=== PATIENT | female | born 1980 | race Caucasian/White ===

== ENCOUNTER → 2016-06-04 | Outpatient (CLI) | payer OTHER ==
[~2016-06-04] MED LIST: ALMO1TAB PO; BCPILLS PO; CITA40TA12 PO; LEVO75TA PO
[2016-06-07 02:49] LABS: CHLAMYDIA TRACH RNA*** NOT DETECTED (NOT DETECTED); GC (NEIS GONORRHOEAE)RNA** NOT DETECTED (NOT DETECTED)
== END | disposition home or self-care (01) ==
LOC: C.LABSPEC 17:46
PROVIDERS: ATTEND Obstetrics & Gynecology
DX: L70.9 Acne, unspecified (principal); Z30.430 Encounter for insertion of intrauterine contraceptive device

== ENCOUNTER → 2016-06-04 | Outpatient (CLI) | payer OTHER ==
[2016-06-04 15:51] LABS: ALT/SGPT 27 U/L (12-78); BLOOD UREA NITROGEN 17 mg/dl (7-18); CARBON DIOXIDE 28 mmol/L (21-32); CHLORIDE 104 mmol/L (98-107); GLUCOSE 84 mg/dl (70-99); POTASSIUM 3.2 mmol/L (3.5-5.1); SODIUM 140 mmol/L (136-145)
[2016-06-04 15:52] LABS: ALB/GLOB RATIO 1.1 (0.9-2); ALKALINE PHOSPHATASE 92 U/L (45-117); AST/SGOT 18 U/L (15-37)
== END | disposition home or self-care (01) ==
LOC: C.LAB1850 13:51
PROVIDERS: ATTEND Obstetrics & Gynecology
DX: L70.9 Acne, unspecified (principal)

== ENCOUNTER → 2016-08-28 | Outpatient (CLI) | payer OTHER ==
[2016-08-28 09:55] LABS: CALCIUM 9.2 mg/dl (8.5-10.1)
[2016-08-28 09:58] LABS: ALT/SGPT 25 U/L (12-78); BLOOD UREA NITROGEN 21 mg/dl (7-18); BUN/CREATININE RATIO 20.5 (10-20); CARBON DIOXIDE 27 mmol/L (21-32); CHLORIDE 101 mmol/L (98-107); GLUCOSE 105 mg/dl (70-99); POTASSIUM 3.5 mmol/L (3.5-5.1); SODIUM 138 mmol/L (136-145)
[2016-08-28 10:01] LABS: ALKALINE PHOSPHATASE 89 U/L (45-117); AST/SGOT 16 U/L (15-37)
== END | disposition home or self-care (01) ==
LOC: C.LAB1850 08:21
PROVIDERS: ATTEND Obstetrics & Gynecology
DX: L70.9 Acne, unspecified (principal)

== ENCOUNTER → 2017-03-08 | Outpatient (CLI) | payer OTHER ==
[2017-03-08 16:17] LABS: ALT/SGPT 27 U/L (12-78); AST/SGOT 17 U/L (15-37); BLOOD UREA NITROGEN 21 mg/dl (7-18); BUN/CREATININE RATIO 24.6 (10-20); CALCIUM 9.3 mg/dl (8.5-10.1); CARBON DIOXIDE 30 mmol/L (21-32); CHLORIDE 100 mmol/L (98-107); CREATININE 0.84 mg/dl (0.60-1.20); GLUCOSE 105 mg/dl (70-99); POTASSIUM 3.5 mmol/L (3.5-5.1); SODIUM 135 mmol/L (136-145)
[2017-03-08 16:20] LABS: ALKALINE PHOSPHATASE 102 U/L (45-117)
== END | disposition home or self-care (01) ==
LOC: C.LAB1850 15:02
PROVIDERS: ATTEND Obstetrics & Gynecology
DX: L70.9 Acne, unspecified (principal)

== ENCOUNTER 2017-05-08 21:24 | Emergency (ER) | payer OTHER ==
[~2017-05-08] VITALS: Ht 152.4 cm; Wt 64.5 kg
[2017-05-08 21:29] VITALS: BP 141/89; PULSE 91; TEMP 36.8; O2SAT 96; Ht 152.4 cm; Wt 64.5 kg
[2017-05-08] MEDS ORDERED: LEVO112T2 PO (21:43)
--- NOTE | 2017-05-09 17:16 | EMERGENCY ROOM VISIT NOTE ---
ED Visit Note First contact with patient: 21:33 Chief Complaint: Dog bite. History of Present Illness: Ms. Crow is a 36-year-old white female who ambulates into the ED accompanied by a male friend complaining of a dog bite to the right hand. 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 She had just fed a [place]. She then turned to talk to another volunteer and the dog bit her on the right hand. This occurred approximately one hour prior to arrival at the hospital. She notes an open puncture wound to the anterior aspect of the right wrist and a few superficial abrasions to the posterior right hand. In the area of her single puncture wound and superficial abrasion she reports she has a throbbing sensation. Rates this discomfort 6/10. The pain is nonradiating. The pain worsens with palpation. She has not identified any alleviating factors related to the discomfort. She has not taken medication for discomfort prior to arrival at the hospital. She denies any associated symptoms including hand weakness/numbness/tingling. She does report the dog involve is up-to-date on his rabies immunization. She also reports prior to coming to the hospital she did wash her wound. Review of Systems: As noted above in history of present illness. Past Medical History: Hypothyroidism, Status post shoulder surgery. Current Medications: Citalopram, Axert, and throat. Allergies to Medications: Penicillin, Zithromax, odyt-[id number]-[id number] cold medicines. Social History: Patient is currently employed; she feels safe in her home environment; she denies tobacco use and admits to alcohol use. Tetanus Immunization Status: Patient reports up-to-date. Physical Examination: Vital Signs: Date Time Temp Pulse Resp B/P (MAP) Pulse Ox O2 Delivery O2 Flow Rate FiO2 05/08/17 21:29 36.8 91 18 141/89 96 Room Air GENERAL: 36-year-old female in mild distress due to pain, nontoxic-appearing, afebrile and hemodynamically stable. NEUROLOGICAL: Awake, alert and oriented to person, place and time. Answering questions appropriately and following commands. Normal gait. Good hand eye coordination. No focal motor or sensory deficits. SKIN: Warm, dry and pink. Right Hand/Wrist: Patient has a single puncture wound to the anterior aspect of the wrist measuring 3-4 mm with no active bleeding. Neuro also multiple superficial abrasions over the posterior hand with no active bleeding. RIGHT WRIST/HAND: No gross bony deformity. Soft tissue injuries as noted above. [id number] tenderness over her wounds. Mild tenderness over the second, third and fourth metacarpals without bony deformity or crepitus. There was mild swelling over the posterior hand. She had full range of motion of the wrist and all the fingers against resistance. Throughout the fingers the skin was warm and pink and capillary refill is brisk. She is able to distinguish light sensations through through all dermatomes. ED Course: Patient is assessed as noted above. Patient's medication list was reviewed. Patient was offered pain medication and refused. Patient's wounds were cleansed with antibacterial soap and water and dressed with bacitracin dressing. I did have a discussion with the patient about possibly closing her puncture wound that was full-thickness. We discussed increased risk of infections and antibiotic therapy. She elected not to have this wound closed but would watch it for signs of infection. Patient was educated about today's findings and instructed on her treatment plan ; she verbalized understanding and agreement with this plan per Clinical Impression: Dog bite right hand. Disposition: Patient discharged home in stable condition; prior to departure she was reassessed and subjectively reported she was feeling the same. Plan: Comfort measures, wound care and signs of infection were discussed with the patient. Patient was encouraged to return to the emergency department for any signs of infection, worsening pain or any new/concerning symptoms.
== END 2017-05-08 22:04 | disposition home or self-care (01) ==
LOC: C.EDB 21:25 → C.EDD 22:04
DX: S61.451A Open bite of right hand, initial encounter (principal); W54.0XXA Bitten by dog, initial encounter; E03.9 Hypothyroidism, unspecified; Z98.890 Other specified postprocedural states; Z79.899 Other long term (current) drug therapy; Z88.0 Allergy status to penicillin; Z88.8 Allergy status to other drugs, medicaments and biological substances

== ENCOUNTER → 2017-05-21 | Outpatient (CLI) | payer OTHER ==
[~2017-05-21] MED LIST changes: -BCPILLS PO; +LEVO112T2 PO; -LEVO75TA PO
[2017-05-21 15:48] LABS: BASO % 0.4 %; BASO ABS # 0.04 K/uL (0-0.2); EOS % 5.6 %; EOS ABS # 0.52 K/uL (0-0.5); HEMATOCRIT 37.2 % (37-47); HEMOGLOBIN 12.7 g/dL (12.0-16.0); IG# 0.01 K/uL (0.00-0.02); LYMPH % 38.2 %; LYMPH ABS # 3.54 K/uL (1.2-3.4); MEAN CELL VOLUME 90.1 fL (80-100); MEAN CORPUSCULAR HEMOGLOBIN 30.8 pg (25-34); MEAN CORPUSCULAR HGB CONC 34.1 g/dl (32-36); MONO % 9.7 %; NEUT ABS # 4.25 K/uL (1.4-6.5); PLATELET COUNT 276 K/uL (130-400); RED CELL DISTRIBUTION WIDTH CV 13.6 % (11.5-14.5); RED CELL DISTRIBUTION WIDTH SD 44.7 fL (36.4-46.3); WHITE BLOOD COUNT 9.26 K/uL (4.8-10.8)
[2017-05-21 16:13] LABS: BLOOD UREA NITROGEN 18 mg/dl (7-18); CALCIUM 9.5 mg/dl (8.5-10.1); CARBON DIOXIDE 26 mmol/L (21-32); CREATININE 0.75 mg/dl (0.60-1.20); GLUCOSE 97 mg/dl (70-99); POTASSIUM 3.6 mmol/L (3.5-5.1); SODIUM 137 mmol/L (136-145)
== END | disposition home or self-care (01) ==
LOC: C.LAB1850 14:49
DX: K62.5 Hemorrhage of anus and rectum (principal); Z87.19 Personal history of other diseases of the digestive system; R10.84 Generalized abdominal pain; R14.0 Abdominal distension (gaseous); Z78.9 Other specified health status

== ENCOUNTER → 2017-08-30 | Outpatient (CLI) | payer OTHER | END | disposition home or self-care (01) | LOC: C.LAB1850 17:18 | PROVIDERS: ATTEND Internal Medicine Endocrinology, Diabetes & Metabolism | DX: E03.9 Hypothyroidism, unspecified (principal); E06.3 Autoimmune thyroiditis ==

== ENCOUNTER 2018-05-24 09:47 | Inpatient (IN) ==
[2018-05-24] MEDS ORDERED: ACETAMINOPHEN 1000 MG/100 ML IV IV STA (10:05)
[2018-05-24] MEDS ORDERED: SODIUM CHLORIDE 0.9% 1000ML 1,000 ML IV SCH (10:15)
[2018-05-24 10:31] LABS: Hematocrit (blood only) 35.4 % (37-47); Hemoglobin 11.6 g/dL (12.0-16.0); Mean Corpuscular Hgb Conc 32.8 g/dL (32-36); Mean Corpuscular Volume 91.5 fL (80-100); Mean Platelet Volume 9.7 fL (7.4-10.4); Platelet Count 304 K/uL (130-400); RDW Coefficient of Variation 14.9 % (11.5-14.5); RDW Standard Deviation 50.1 fL (36.4-46.3); Red Blood Count 3.87 M/uL (4.2-5.4); White Blood Count 16.28 K/uL (4.8-10.8)
[2018-05-24 10:48] LABS: Albumin Level 2.8 gm/dl (3.4-5.0); BUN Creatinine Ratio 11.9 (10-20); Calcium 9.1 mg/dl (8.5-10.1); Creatinine Clr Calc Pharmacy 94.3 ml/min; Est GFR (Non-African American) 111.3; Magnesium 2.4 mg/dl (1.8-2.4); Potassium 3.1 mmol/L (3.5-5.1)
--- NOTE | 2018-05-24 10:49 | Emergency Department Note ---
Entered by Judy Crews acting as a scribe for Esa Contreras MD History of Present Illness General Chief complaint: GI Assessment Stated complaint: ACUTE ULCERTIVE COLITUS FLAIR UP,HEAVY BLEEDING Time Seen by Provider: 05/24/18 09:57 Source: patient History of Present Illness Provider complaint: abdominal pain Onset (ago): day(s) 8 Location: abdomen Pain Consistency: + other (worsened) Maximum Pain Intensity: 7 Quality: + other (cramping) Associated symptoms: no nausea/vomiting (denies vomiting) The patient is a 38 year old female who presents to the Emergency Room with complaints of abdominal pain over the last 8 days. She states that she was treated here last night and discharged this morning so she could see her GI doctor. The patient states that Dr. Chery referred her here for admission. She states that she is at the end of a month-long tapered Prednisone. She states she has had abdominal cramping and loose stools which she states worsened this week. The patient reports that her bowel movements have been fluid and blood. She denies having vomiting. She states that she was diagnosed with ulcerative colitis 1 year ago but reports that this is the worse it has been. Review of notes show that the patient was sent in by GI and has a history of ulcerative colitis. The patient was seen yesterday in the ED. There is concern for C. Diff. Home Medications Home Medications Medication Instructions Recorded Confirmed Type duloxetine 30 mg capsule,delayed 30 mg PO DAILY 02/03/18 05/24/18 History release ibuprofen 800 mg tablet 800 mg PO .Q4-6 PRN tab 02/03/18 05/24/18 History thyroid (pork) 90 mg tablet 90 mg PO DAILY 02/03/18 05/24/18 History almotriptan malate 12.5 mg PO UD PRN 05/23/18 05/24/18 History mesalamine 2,400 mg PO DAILY 05/23/18 05/24/18 History mesalamine with cleansing wipe 4 g OR HS 05/23/18 05/24/18 History Allergies Allergy/AdvReac Type Severity Reaction Status Date / Time Penicillins Allergy Unknown rash Verified 05/24/18 10:36 azithromycin [From Zithromax] Allergy Hives Verified 05/24/18 10:36 OTC COUGH MEDICINES Allergy Unknown hives Uncoded 05/24/18 10:36 Past Med/Surg History Medical History Sacroiliitis Anxiety (Chronic) Hypothyroid (Chronic) Migraines (Chronic) Ulcerative colitis (Chronic) H/O lipoma Surgical History H/O rotator cuff surgery bilateral Family History Mother Hypothyroid Paget disease of bone Father Hypothyroid HTN (hypertension) Aunt Ulcerative colitis Brother Crohns disease Sister Graves disease Social History marital status: marital status details: no kids; currently in relationship Current Living Situation: Significant Other current occupational status: employed 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 and A total of 10 systems reviewed and were otherwise negative Physical Exam Vital Signs Vital Signs - 24 hr 05/24/18 09:49 05/24/18 10:28 05/24/18 11:22 Temperature 37.0 C Temperature Source Oral Sepsis Recent Fever Within 48 Hours No Sepsis New/Unexplained Change in Mental Status No Sepsis Action Taken by Nursing No Action Required Pulse Rate 94 H Pulse Rate [Right Finger] 94 H 80 Pulse Rhythm [Right Finger] Regular Regular Pulse Strength [Right Finger] Normal Normal Respiratory Rate 18 16 16 Respiratory Effort / Characteristics Non-Labored Spontaneous Non-Labored Non-Labored Respiratory Depth Normal Normal Respiratory Pattern Regular Regular Blood Pressure 138/91 Blood Pressure [Left Arm] 130/85 133/88 Blood Pressure [Right Arm] Blood Pressure Mean 106 Blood Pressure Mean [Left Arm] 100 103 Blood Pressure Mean [Right Arm] Blood Pressure Position Sitting Blood Pressure Position [Left Arm] Sitting Lying Blood Pressure Position [Right Arm] Pulse Oximetry 98 98 100 Oxygen Delivery Method Room Air Room Air Room Air 05/24/18 11:39 05/24/18 13:05 05/24/18 14:05 Temperature 36.7 C Temperature Source Oral Sepsis Recent Fever Within 48 Hours Sepsis New/Unexplained Change in Mental Status Sepsis Action Taken by Nursing Pulse Rate Pulse Rate [Right Finger] 96 H 94 H Pulse Rhythm [Right Finger] Regular Pulse Strength [Right Finger] Normal Respiratory Rate 16 18 Respiratory Effort / Characteristics Non-Labored Spontaneous Non-Labored Non-Labored Spontaneous Respiratory Depth Normal Normal Normal Respiratory Pattern Regular Regular Blood Pressure Blood Pressure [Left Arm] 128/76 Blood Pressure [Right Arm] 144/92 H Blood Pressure Mean Blood Pressure Mean [Left Arm] 93 Blood Pressure Mean [Right Arm] 109 Blood Pressure Position Blood Pressure Position [Left Arm] Lying Blood Pressure Position [Right Arm] Sitting Pulse Oximetry 98 97 Oxygen Delivery Method Room Air Room Air Room Air 05/24/18 15:29 Temperature 37.1 C Temperature Source Oral Sepsis Recent Fever Within 48 Hours Sepsis New/Unexplained Change in Mental Status Sepsis Action Taken by Nursing Pulse Rate Pulse Rate [Right Finger] 95 H Pulse Rhythm [Right Finger] Pulse Strength [Right Finger] Respiratory Rate 16 Respiratory Effort / Characteristics Respiratory Depth Respiratory Pattern Blood Pressure Blood Pressure [Left Arm] Blood Pressure [Right Arm] 125/81 Blood Pressure Mean Blood Pressure Mean [Left Arm] Blood Pressure Mean [Right Arm] 95 Blood Pressure Position Blood Pressure Position [Left Arm] Blood Pressure Position [Right Arm] Lying Pulse Oximetry 99 Oxygen Delivery Method Room Air GENERAL: Patient is in no acute distress. HEENT: No acute trauma, normocephalic atraumatic, mucous membranes moist, no nasal congestion, no scleral icterus. NECK: No stridor, no adenopathy, no meningismus, trachea is midline. LUNGS: Clear to auscultation bilaterally, no wheeze, no rhonchi, breath sounds equal. HEART: Mildly tachycardic, regular rhythm, no murmurs. ABDOMEN: Soft, diffusely mildly tender, bowel sounds positive but scant, no hernias, no peritonitis. EXTREMITIES: No cyanosis or edema, full range of motion of all the joints without pain or difficulty, no signs for acute trauma. NEUROLOGIC: Oriented x 3, no acute motor or sensory deficits, no focal weakness. SKIN: No rash, no jaundice, no diaphoresis. Course 1000: Past medical records reviewed. The patient was evaluated in room B6, and a complete history and physical examination were performed. 1011: I discussed the patient's case with Dr. Bravo who said that the patient would go to the unassigned group. 1129: I discussed the patient's case with Dr. Heath Neves who will evaluate the patient for further management. 1136: I updated the patient who verbalized agreement and understanding of the treatment plan. Consultations Consultation #1: Dr. Bravo Time: 10:11 Consultation #2: Dr. Heath Neves Time: 11:29 Administered Medications Methylprednisolone 20 mg/ (Syringe) 0.32 mls @ 1.5 mls/min IV Q8 MARILU Stop: 06/23/18 14:59 Last Admin: 05/24/18 15:57 Dose: 1.5 mls/min Potassium Chloride (Klor-Con M20) 20 meq PO TID MARILU Stop: 05/25/18 09:01 Last Admin: 05/24/18 15:58 Dose: 20 meq Raspberry (Raspberry) 5 ml PO Q6 MARILU Stop: 06/07/18 17:59 Last Admin: 05/24/18 13:26 Dose: 5 ml Vancomycin HCl (Vancomycin Hcl) 125 mg PO Q6 MARILU Stop: 06/03/18 12:44 Last Admin: 05/24/18 13:25 Dose: 125 mg Discontinued Medications Acetaminophen (Ofirmev) 1,000 mg IV NOW STA Stop: 05/24/18 10:06 Last Admin: 05/24/18 10:22 Dose: 1,000 mg Sodium Chloride (Nss 1000ml) 1,000 mls @ 999 mls/hr IV .Q1H1M MARILU Stop: 05/24/18 11:15 Last Infusion: 05/24/18 11:20 Dose: 0 mls/hr Admin: 05/24/18 10:24 Dose: 999 mls/hr Ioversol (Optiray 320 100ml) 94 ml IV ONCE PRN PRN Reason: Interaction Checking Stop: 05/28/18 12:53 Last Admin: 05/24/18 12:54 Dose: 94 ml Medical Decision Making Differential Diagnosis The patient is a 38 year old female who presents to the ED with abdominal pain. Differential diagnosis includes dehydration, electrolyte imbalance, anemia, colitis, bacterial intestinal infection, C Diff infection, toxic megacolon, ulcerative colitis flair, and failed outpatient treatment. Medical Records Attestation: I reviewed the patient's medical records. Home Medications Current Medication List: was personally reviewed by me Laboratory Data Attestation: I reviewed the patient's lab results. Result diagrams: 05/24/18 10:20 05/24/18 10:20 Lab Results 05/24/18 05/24/18 05/24/18 Range/Units 10:20 10:20 10:40 WBC 16.28 H (4.8-10.8) K/uL RBC 3.87 L (4.2-5.4) M/uL Hgb 11.6 L (12.0-16.0) g/dL Hct 35.4 L (37-47) % MCV 91.5 (80-100) fL MCH 30.0 (25-34) pg MCHC 32.8 (32-36) g/dL RDW Std Deviation 50.1 H (36.4-46.3) fL RDW Coeff of Elayne 14.9 H (11.5-14.5) % Plt Count 304 (130-400) K/uL MPV 9.7 (7.4-10.4) fL Immature Gran % (Auto) 0.6 % Neut % (Auto) 70.0 % Lymph % (Auto) 9.5 % [place] % (Auto) 19.6 % Eos % (Auto) 0.2 % Baso % (Auto) 0.1 % Immature Gran # (Auto) 0.10 H (0.00-0.02) K/uL Neut # (Auto) 11.40 H (1.4-6.5) K/uL Lymph # (Auto) 1.54 (1.2-3.4) K/uL [place] # (Auto) 3.19 H (0.11-0.59) K/uL Eos # (Auto) 0.03 (0-0.5) K/uL Baso # (Auto) 0.02 (0-0.2) K/uL Toxic Granulation 1+ Dohle Bodies 1+ Sodium 137 (136-145) mmol/L Potassium 3.1 L (3.5-5.1) mmol/L Chloride 102 (98-107) mmol/L Carbon Dioxide 28 (21-32) mmol/L Anion Gap 7.0 (3-11) BUN 8 (7-18) mg/dl Creatinine 0.66 (0.6-1.2) mg/dl Est Cr Clr Drug Dosing 94.3 ml/min Est GFR ( Amer) 129.0 Est GFR (Non-Af Amer) 111.3 BUN/Creatinine Ratio 11.9 (10-20) Glucose 112 H (70-99) mg/dl Calcium 9.1 (8.5-10.1) mg/dl Magnesium 2.4 (1.8-2.4) mg/dl Total Bilirubin 0.5 (0.2-1) mg/dl AST 6 L (15-37) U/L ALT 17 (12-78) U/L Alkaline Phosphatase 76 (45-117) U/L Total Protein 7.2 (6.4-8.2) gm/dl Albumin 2.8 L (3.4-5.0) gm/dl Globulin 4.4 H (2.5-4.0) gm/dl Albumin/Globulin Ratio 0.6 L (0.9-2) Lipase 36 L (73-393) U/L Stl C. diff Tox B Gene Pos C.diff Toxin B A* (Neg) Imaging Data Radiologist's Impression: Radiology results as stated below per my review and the radiologist's interpretation: CT abd pelvis oral and IV con CLINICAL HISTORY: Ulcerative colitis, severe abdominal pain, bleeding, evaluate for toxic megacolon. COMPARISON STUDY: Supine abdomen dated 05/23/2018 TECHNIQUE: The patient was scanned following administration of dilute oral contrast, and in a dynamic helical fashion during intravenous administration of 94 cc of Optiray 320. A dose lowering technique was utilized adhering to the principles of ALARA. CT DOSE: 527.93 mGycm FINDINGS: Lower chest: There are minimal dependent atelectatic changes. Liver: The contrast-enhanced liver is normal in size, contour, and attenuation. There is no intrahepatic biliary ductal dilatation. The hepatic veins and portal veins are patent. Gallbladder: Unremarkable. Spleen: Normal in size and attenuation. Pancreas: Unremarkable. Adrenal glands: Unremarkable. Kidneys: There is symmetric renal cortical enhancement. The kidneys are normal in size without hydronephrosis. Bowel: There are no transition zones indicate bowel obstruction. There is no evidence of acute diverticulitis. There is osei colonic wall thickening. There are no findings to indicate acute appendicitis. The distal ileum appears normal. Peritoneum: There is no intraperitoneal free air or abdominal ascites. Vasculature: The abdominal aorta is normal in course and caliber. Adenopathy: None. Pelvic viscera: There is an indwelling IUD. This 25 mm left ovarian follicle. Skeletal structures: There is diffuse sclerosis of the right iliac bone. The etiology of this finding is not known. A bone scan is recommended in follow-up to determine whether this a metabolically active lesion, and to search for additional areas of possible abnormal uptake IMPRESSION: 1. No evidence of bowel obstruction. No evidence of free air. 2. Diffuse colonic wall thickening consistent with a pancolitis. No evidence of significant colonic dilatation 3. Unexplained diffuse sclerosis of the right iliac bone. A bone scan is recommended in follow-up. Electronically signed by: Michael Collazo M.D. 05/24/2018 1:17 PM Blood Pressure Blood Pressure Findings: Normal blood pressure MDM Narrative There is a moderate leukocytosis at 16,000. This could be consistent with infection or just the stress of her situation. No worrisome anemia. Renal panel testing shows a mildly low potassium at 3.1, no kidney failure. No hepatitis or pancreatitis. C. difficile testing was positive, stool cultures are pending. Abdominal and pelvis CT shows colitis, no evidence for abscess or bowel obstruction. No free air. Patient received IV saline, she received IV Tylenol for pain. The patient presents with continuation of her abdominal pain and bloody diarrhea. This has been ongoing and she is failing outpatient treatment. She is having a severe ulcerative colitis flare, she has C. difficile colitis. Hospitalization has been recommended by her GI specialist. I did speak to the patient and case management. The on-call hospitalist was consulted. GI was consulted. Impression & Plan Bloody diarrhea, Abdominal pain, diffuse, Exacerbation of ulcerative colitis, Failure of outpatient treatment, C. difficile colitis Discharge Plan Visit Data *Final* Discharge Date/Time: 05/24/18 13:47 Chief Complaint: GI Assessment Stated Complaint: ACUTE ULCERTIVE COLITUS FLAIR UP,HEAVY BLEEDING ED Provider: Esa Contreras Discharge Problem: Bloody diarrhea, Abdominal pain, diffuse, Exacerbation of ulcerative colitis, Failure of outpatient treatment, C. difficile colitis Patient Disposition: Admitted As Inpatient Discharge Instructions Interventions: ED Discharge Assessment Last Done: 05/24/18 13:47 The avaibe's documentation has been prepared under my direction and personally reviewed by me in its entirety. I confirm that the note above accurately reflects all work, treatment, procedures, and medical decision making performed by me.
[2018-05-24 10:51] LABS: Albumin Globulin Ratio 0.6 (0.9-2); Bilirubin,Total 0.5 mg/dl (0.2-1); Globulin 4.4 gm/dl (2.5-4.0); Total Protein 7.2 gm/dl (6.4-8.2)
[2018-05-24 10:56] LABS: Basophils # (auto) 0.02 K/uL (0-0.2); Basophils % (auto) 0.1 %; Dohle Bodies 1+; Eosinophils # (auto) 0.03 K/uL (0-0.5); Eosinophils % (auto) 0.2 %; Immature Granulocytes % (auto) 0.6 %; Lymphocytes # (auto) 1.54 K/uL (1.2-3.4); Lymphocytes % (auto) 9.5 %; Monocytes # (auto) 3.19 K/uL (0.11-0.59); Monocytes % (auto) 19.6 %; Toxic Granulation 1+
--- NOTE | 2018-05-24 11:53 | History & Physical Report ---
Date of Service May 24, 2018 Assessment & Plan (1) Exacerbation of ulcerative colitis: Likely UC flare but will need to r/o concomitant infectious process such as c. diff or other enteric pathogen. Check c. diff toxin. Check stool culture. In meantime - solumedrol 20mg IV q8h. Continue oral mesalamine. Hold rectal mesalamine unless otherwise directed by GI. [facility] consult requested. IVF, replace low K, serial labs, morphine prn, zofran prn, clear liquid diet. Defer other management to GI. Present on Admission?: Yes (2) Bloody diarrhea: Likely due to active ulcerative colitis but r/o c diff infection and other infectious processes. Send c. diff toxin and stool cx. Other plans as noted above. Consider iron studies while hospitalized. Present on Admission?: Yes (3) Abdominal pain: Due to UC; also r/o infectious process. CT abd/pelvis is pending. Morphine prn. Present on Admission?: Yes (4) Hypothyroidism: TSH wnl. Cont armour thyroid. Present on Admission?: Yes (5) Hypokalemia: Give KCL 20meq PO TID x 3 doses. Add KCL to IV fluids as well. BMP in am. mag noted to be normal. Present on Admission?: Yes (6) Migraine: none at this time. triptans prn. (7) DVT prophylaxis: SCDs for now. IVF - NS w/ KCL at 125cc/hr. Urine test. Serial labs. History of Present Illness Chief Complaint: bloody stools Primary Care Provider: Nicol Spicer MD 38yo female with history of Ulcerative Colitis diagnosed 1 year ago and followed by [facility], Dr. Manuel Tidwell, who presents with worsening GI symptoms including frequent and loose bloody bowel movements (10+ each day) as well as lower quadrant abdominal pain. She has had mild bloody, formed bowel movements since January 2018. At that time mesalamine enemas were added to oral mesalamine (which she had been taking since May 2017). Then, about 3 weeks ago, she was placed on a slow prednisone taper. She is down to 10mg/day. Despite oral mesalamine, rectal mesalamine, and a prednisone course her UC symptoms have worsened. She has lost at least 5 pounds of weight recently. Question of subjective fever in the last few days. No sick contacts. Traveled to [facility] at [place] time but no other travels. She last saw her GI physician this am in [place] and they recommended hospitalization. She came to [facility] because she actually lives in [place]. She reports her GI physician this am contacted Eliza WU at [facility]. Her last colonoscopy was May 2017 at time of her diagnosis. Allergies Allergy/AdvReac Type Severity Reaction Status Date / Time Penicillins Allergy Unknown rash Verified 05/24/18 10:36 azithromycin [From Zithromax] Allergy Hives Verified 05/24/18 10:36 OTC COUGH MEDICINES Allergy Unknown hives Uncoded 05/24/18 10:36 Home Medications Home Medications Medication Instructions Recorded Confirmed Type duloxetine 30 mg capsule,delayed 30 mg PO DAILY 02/03/18 05/24/18 History release ibuprofen 800 mg tablet 800 mg PO .Q4-6 PRN tab 02/03/18 05/24/18 History thyroid (pork) 90 mg tablet 90 mg PO DAILY 02/03/18 05/24/18 History almotriptan malate 12.5 mg PO UD PRN 05/23/18 05/24/18 History mesalamine 2,400 mg PO DAILY 05/23/18 05/24/18 History mesalamine with cleansing wipe 4 g NV HS 05/23/18 05/24/18 History Past Med/Surg History Medical History Sacroiliitis Anxiety (Chronic) Hypothyroid (Chronic) Migraines (Chronic) Ulcerative colitis (Chronic) H/O lipoma Surgical History H/O rotator cuff surgery bilateral Social History marital status: marital status details: no kids; currently in relationship Current Living Situation: Significant Other current occupational status: employed 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 [employer] Other Information That Helps Us Care for You: No Feels Safe at Home: Yes Safety Concerns: Feels Safe At This Time Smoking Status: Never smoker Hx Alcohol Use: Yes Alcohol type: beer and wine Alcohol Intake Frequency: holidays/special occasions only Hx Substance Use: No Beliefs That Will Affect Care: None Preferred Language: Icelandic Communication Ability: Effective Review of Systems Constitutional: + fever (subjective), + chills and + weight loss Eyes: no worsening vision Ear, Nose, Mouth, Throat: no nasal congestion, no sore throat and no dysphagia Respiratory: no cough and no dyspnea Cardiovascular: no chest pain Gastrointestinal: + abdominal pain, + diarrhea/loose stools and + blood in stools; no nausea and no vomiting Genitourinary (Female): no dysuria has IUD in place Musculoskeletal: + back pain Integumentary: no rash Neurologic: no paralysis and no numbness Psychiatric: + anxiety; no depression no diabetes Hematologic / Lymphatic: no easy bleeding and no easy bruising Allergy / Immunological: no wheezing and no rash Physical Exam 2 Vital Signs (Past 24 Hours): Last Vital Signs Temp 37.0 C 05/24/18 09:49 Pulse 80 05/24/18 11:22 Resp 16 05/24/18 11:22 BP 133/88 05/24/18 11:22 Pulse Ox 100 05/24/18 11:22 Constitutional: well developed and well nourished; no acute distress and not ill appearing Eyes: PERRL ENMT: external ear and nose normal, oropharynx normal Ears: no TM abnormality Mouth: no oropharynx abnormality and no oral mucosal abnormality Neck: trachea midline, no thyromegaly Respiratory: normal respiratory effort, lungs clear to auscultation Cardiovascular: RRR, no murmur, no edema Heart Sounds: normal S1 and normal S2 Vessels: posterior tibial pulses present and dorsalis pedis pulses present; no JVD Extremities: normal capillary refill Gastrointestinal (Abdomen): Inspection/Auscultation: abdomen normal to inspection and normal bowel sounds; abdomen not distended Percussion/ Palpation: + abdomen tender (mild, RLQ/LLQ) and abdomen soft; no guarding, abdomen not rigid and no hepatosplenomegaly Musculoskeletal: no cyanosis or clubbing, extremities motor strength 5/5 Skin: no rashes, warm and dry Neurologic: deep tendon reflexes 2+ bilaterally and moves all extremities; no focal motor deficits Psychiatric: A+Ox3, euthymic affect Lymphatic: no cervical lymphadenopathy Results & Data Laboratory Results Laboratory Results - last 24 hr 05/24/18 05/24/18 10:20 10:20 WBC 16.28 H RBC 3.87 L Hgb 11.6 L Hct 35.4 L MCV 91.5 MCH 30.0 MCHC 32.8 RDW Std Deviation 50.1 H RDW Coeff of Elayne 14.9 H Plt Count 304 MPV 9.7 Immature Gran % (Auto) 0.6 Neut % (Auto) 70.0 Lymph % (Auto) 9.5 [place] % (Auto) 19.6 Eos % (Auto) 0.2 Baso % (Auto) 0.1 Immature Gran # (Auto) 0.10 H Neut # (Auto) 11.40 H Lymph # (Auto) 1.54 [place] # (Auto) 3.19 H Eos # (Auto) 0.03 Baso # (Auto) 0.02 Toxic Granulation 1+ Dohle Bodies 1+ Sodium 137 Potassium 3.1 L Chloride 102 Carbon Dioxide 28 Anion Gap 7.0 BUN 8 Creatinine 0.66 Est Cr Clr Drug Dosing 94.3 Est GFR ( Amer) 129.0 Est GFR (Non-Af Amer) 111.3 BUN/Creatinine Ratio 11.9 Glucose 112 H Calcium 9.1 Magnesium 2.4 Total Bilirubin 0.5 AST 6 L ALT 17 Alkaline Phosphatase 76 Total Protein 7.2 Albumin 2.8 L Globulin 4.4 H Albumin/Globulin Ratio 0.6 L Lipase 36 L Code Status & VTE Plan Code Status full code level 1 VTE Prophylaxis Plan VTE Prophylaxis will be ordered: Yes _ (1) Exacerbation of ulcerative colitis Digestive disease complication type: unspecified complication Qualified Code( s): K51.919 - Ulcerative colitis, unspecified with unspecified complications (2) Abdominal pain Abdominal location: generalized Qualified Code(s): R10.84 - Generalized abdominal pain (3) Hypothyroidism Hypothyroidism type: acquired Qualified Code(s): E03.9 - Hypothyroidism, unspecified (4) Migraine Migraine type: other Status migrainosus presence: without status migrainosus Intractability: not intractable Qualified Code(s): G43.809 - Other migraine, not intractable, without status migrainosus
[2018-05-24] MEDS ORDERED: IOVERSOL 100ml IV PRN (12:54)
--- NOTE | 2018-05-24 13:18 | CT Scan Report ---
CT abd pelvis oral and IV con CLINICAL HISTORY: Ulcerative colitis, severe abdominal pain, bleeding, evaluate for toxic megacolon. COMPARISON STUDY: Supine abdomen dated 05/23/2018 TECHNIQUE: The patient was scanned following administration of dilute oral contrast, and in a dynamic helical fashion during intravenous administration of 94 cc of Optiray 320. A dose lowering techniqu e was utilized adhering to the principles of ALARA. CT DOSE: 527.93 mGycm FINDINGS: Lower chest: There are minimal dependent atelectatic changes. Liver: The contrast-enhanced liver is normal in size, contour, and attenuation. There is no intrahepa tic biliary ductal dilatation. The hepatic veins and portal veins are patent. Gallbladder: Unremarkable. Spleen: Normal in size and attenuation. Pancreas: Unremarkable. Adrenal glands: Unremarkable. Kidneys: There is symmetric renal cortical enhancement. The kidneys are normal in size without hydron ephrosis. Bowel: There are no transition zones indicate bowel obstruction. There is no evidence of acute divert iculitis. There is osei colonic wall thickening. There are no findings to indicate acute appendicitis. The distal ileum appears normal. Peritoneum: There is no intraperitoneal free air or abdominal ascites. Vasculature: The abdominal aorta is normal in course and caliber. Adenopathy: None. Pelvic viscera: There is an indwelling IUD. This 25 mm left ovarian follicle. Skeletal structures: There is diffuse sclerosis of the right iliac bone. The etiology of this finding is not known. A bone scan is recommended in follow-up to determine whether this a metabolically acti ve lesion, and to search for additional areas of possible abnormal uptake IMPRESSION: 1. No evidence of bowel obstruction. No evidence of free air. 2. Diffuse colonic wall thickening consistent with a pancolitis. No evidence of significant colonic d ilatation 3. Unexplained diffuse sclerosis of the right iliac bone. A bone scan is recommended in follow-up. Electronically signed by: Michael Collazo M.D. 05/24/2018 1:17 PM
[2018-05-24] MEDS: VANCOMYCIN HCL 125 MG/2.5ML SOLN PO SCH ×3 (13:25→23:27)
[2018-05-24] MEDS: RASPBERRY SYRUP 5 ML UDP PO SCH ×2 (13:26→23:26)
[2018-05-24] MEDS ORDERED: ZOLPIDEM TARTRATE 5 MG TAB PO PRN (14:22)
[2018-05-24] MEDS ORDERED: MoRPHine SULFATE 4 MG/ML 1 ML CARP\\VIAL IV PRN (14:22)
[2018-05-24] MEDS ORDERED: ONDANSETRON INJ 2 MG/ML 2 ML VIAL IV PRN (14:22)
[2018-05-24] MEDS ORDERED: SUMAtriptan succinate 50 MG TAB PO PRN (14:22)
--- NOTE | 2018-05-24 14:34 | Gastrointestinal Consultation ---
Date of Consultation May 24, 2018 Assessment & Plan (1) C. difficile colitis: vanco 125mg QID x 14 days. Present on Admission?: Yes (2) Exacerbation of ulcerative colitis: Hold IV steroids. Prednisone 5mg daily x 5 days. OP GI office visit with Dr. Garay or an SOAKING PIT OPERATOR in the next month. Clear liquids diet tonight and if does well can have a low fiber diet tomorrow. Present on Admission?: Yes Supervising Physician Co-Signing Physician Notes Attending attestation I have seen, examined this patient, and agree with the findings and above by our mid-level provider Francisco Mayo. -Patient with possible IBD but with skip lesions in the colon, pathology appeared more consistent with UC than Crohn's -Has what appears to be uncomplicated C-diff now -Wean steroids off -Oral ASA -Can hold Rectal ASA -Vancomycin for 2 wks -Outpt f/u History of Present Illness Reason for Consultation: UC, C-diff Requesting Physician: Connor Attending Physician: Moncho Miguel History of Present Illness Ms. Crow is a 38 yr old female pt with a one yr hx of UC (mild colitis in the cecum, ascending and colon hepatic flexure and rectum) and normal TI with some bx being normal. She has been managed on po and recently rectal mesalamines. Starting 10 days ago, she began with bloody diarrhea (her baseline is more toward constipation but still with blood). She was started on a prednisone taper currently on 10mg w/o improvement. On arrival CT with osei colitis and sed rate 45 (OP) and stool was (+) for c- diff. Pt is seen and examined while she is resting in bed. She appears well, is pleasant, conversational able to give us a detailed history and does not appear uncomfortable. Allergies Allergy/AdvReac Type Severity Reaction Status Date / Time Penicillins Allergy Unknown rash Verified 05/24/18 10:36 azithromycin [From Zithromax] Allergy Hives Verified 05/24/18 10:36 OTC COUGH MEDICINES Allergy Unknown hives Uncoded 05/24/18 10:36 Home Medications Home Medications Medication Instructions Recorded Confirmed Type duloxetine 30 mg capsule,delayed 30 mg PO DAILY 02/03/18 05/24/18 History release ibuprofen 800 mg tablet 800 mg PO .Q4-6 PRN tab 02/03/18 05/24/18 History thyroid (pork) 90 mg tablet 90 mg PO DAILY 02/03/18 05/24/18 History almotriptan malate 12.5 mg PO UD PRN 05/23/18 05/24/18 History mesalamine 2,400 mg PO DAILY 05/23/18 05/24/18 History mesalamine with cleansing wipe 4 g PA HS 05/23/18 05/24/18 History Patient History Medical History Sacroiliitis Anxiety (Chronic) Hypothyroid (Chronic) Migraines (Chronic) Ulcerative colitis (Chronic) H/O lipoma Surgical History H/O rotator cuff surgery bilateral Family History Mother Hypothyroid Paget disease of bone Father Hypothyroid HTN (hypertension) Aunt Ulcerative colitis Brother Crohns disease Sister Graves disease Social History marital status: marital status details: no kids; currently in relationship Current Living Situation: Significant Other current occupational status: employed 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 Eyes: no vision changes, no eye redness or pain Respiratory: No SOB, no cough Cardiovascular: No irregular heartbeats or chest pain Abdomen: Moderate, diffuse abdominal pain, + bloody diarrhea Ext: No edema Hem: No excessive bruising/bleeding Physical Exam 2 Vital Signs (Past 24 Hours): Last Vital Signs Temp 36.7 C 05/24/18 14:05 Pulse 94 H 05/24/18 14:05 Resp 18 05/24/18 14:05 BP 144/92 H 05/24/18 14:05 Pulse Ox 97 05/24/18 14:05 Neck: trachea midline, no thyromegaly Respiratory: normal respiratory effort, lungs clear to auscultation Cardiovascular: RRR, no murmur, no edema Gastrointestinal (Abdomen): Inspection/Auscultation: abdomen normal to inspection and normal bowel sounds; abdomen not distended Percussion/ Palpation: + abdomen tender (moderate, diffuse) Skin: no rashes, warm and dry Neurologic: PERRL, EOMI, accommodation nl, no face palsy, no dysarthria Lymphatic: no cervical or axillary lymphadenopathy Results & Data Laboratory Results WBC 16, Hb 11.6, Hct 34, Platelets 304. Diagnostic Findings CT 1. No evidence of bowel obstruction. No evidence of free air. 2. Diffuse colonic wall thickening consistent with a pancolitis. No evidence of significant colonic dilatation 3. Unexplained diffuse sclerosis of the right iliac bone. A bone scan is recommended in follow-up. _ (1) Exacerbation of ulcerative colitis Digestive disease complication type: unspecified complication Qualified Code( s): K51.919 - Ulcerative colitis, unspecified with unspecified complications
[2018-05-24] MEDS ORDERED: methylPREDNISolone 20 MG in SYRINGE 0 ML IV SCH (15:00)
[2018-05-24] MEDS: POTASSIUM CHLORIDE 20 MEQ TABCR PO SCH ×2 (15:58→20:16)
[2018-05-24] MEDS ORDERED: MESALAMINE SCH (16:00)
[2018-05-24] MEDS: NSS + 20MEQ KCL 20 MEQ/1,000 ML BAG IV SCH ×2 (16:00→23:27)
[2018-05-24] MEDS ORDERED: RASPBERRY SYRUP 5 ML UDP PO SCH (18:00)
[2018-05-24] MEDS: ACETAMINOPHEN 325 MG TAB PO PRN (20:16)
[2018-05-24 23:54] LABS: Pregnancy Test, Urine Negative (Negative)
[2018-05-25] MEDS: VANCOMYCIN HCL 125 MG/2.5ML SOLN PO SCH ×4 (06:14→23:38)
[2018-05-25] MEDS: RASPBERRY SYRUP 5 ML UDP PO SCH ×4 (06:14→23:38)
[2018-05-25 06:32] LABS: Hematocrit (blood only) 32.1 % (37-47); Hemoglobin 10.2 g/dL (12.0-16.0); Mean Corpuscular Hgb Conc 31.8 g/dL (32-36); Mean Corpuscular Volume 93.3 fL (80-100); Mean Platelet Volume 9.5 fL (7.4-10.4); Nucleated RBC # (auto) 0.02 K/uL (0-0); Nucleated RBC % (auto) 0.2 %; Platelet Count 257 K/uL (130-400); RDW Coefficient of Variation 15.1 % (11.5-14.5); RDW Standard Deviation 51.7 fL (36.4-46.3); Red Blood Count 3.44 M/uL (4.2-5.4); White Blood Count 10.44 K/uL (4.8-10.8)
[2018-05-25 07:02] LABS: Basophils # (auto) 0.03 K/uL (0-0.2); Basophils % (auto) 0.3 %; Dohle Bodies 1+; Eosinophils # (auto) 0.04 K/uL (0-0.5); Eosinophils % (auto) 0.4 %; Immature Granulocytes # (auto) 0.56 K/uL (0.00-0.02); Immature Granulocytes % (auto) 5.4 %; Lymphocytes # (auto) 2.35 K/uL (1.2-3.4); Lymphocytes % (auto) 22.5 %; Monocytes # (auto) 1.49 K/uL (0.11-0.59); Monocytes % (auto) 14.3 %; Neutrophils # (auto) 5.97 K/uL (1.4-6.5); Neutrophils % (auto) 57.1 %; Toxic Granulation 1+
[2018-05-25 07:09] LABS: BUN Creatinine Ratio 5.7 (10-20); Calcium 8.6 mg/dl (8.5-10.1); Creatinine Clr Calc Pharmacy 92.9 ml/min; Est GFR (African American) 128.3; Est GFR (Non-African American) 110.7; Ferritin 86.6 ng/ml (8-388); Potassium 4.2 mmol/L (3.5-5.1)
[2018-05-25] MEDS: NSS + 20MEQ KCL 20 MEQ/1,000 ML BAG IV SCH ×3 (07:29→23:40)
[2018-05-25] MEDS: DULOXETINE HCL 30 MG CAP PO SCH (09:15)
[2018-05-25] MEDS: ARMOUR THYROID 30 MG TAB PO SCH (09:15)
[2018-05-25] MEDS: predniSONE 5 MG TAB PO SCH (09:15)
[2018-05-25] MEDS: POTASSIUM CHLORIDE 20 MEQ TABCR PO SCH (09:15)
[2018-05-25] MEDS: MESALAMINE 800 MG PO SCH (09:16)
--- NOTE | 2018-05-25 11:00 | Hospitalist Progress Note ---
Date of Service May 25, 2018 Assessment & Plan (1) C. difficile colitis: - This is the first episode of C. diff but is higher risk given her underlying Ulcerative Colitis and maybe some immunocompromise given steroid needs - So far today her BMs have reduced and she is feeling significantly better since arrival - Tolerating a clear liquid diet and will advance to low fiber and monitor tolerance - Vancomycin 125 mg QID x 14 days total - Tylenol and Morphine PRN - IVF at 125 mL/hr and will D/C pending good diet tolerance (2) Exacerbation of ulcerative colitis: - Possible combination of both this and C. diff but likely more C. diff related - Will finish taper with Prednisone 5 mg x 5 days total - Mesalamine daily - GI following - appreciate assistance Present on Admission?: Yes (3) Bloody diarrhea: -Likely in setting of C. diff but possible with her UC - Slightly anemic but asymptomatic - no need for transfusion - she states she does take a vitamin at home but no direct iron supplementation - Iron WNL but lower end - TIBC/transferrin is low - can have routine F/U Present on Admission?: Yes (4) Hypothyroidism: - Hendrum 90 mg AM Present on Admission?: Yes (5) Migraine: - No current issue - Sumatriptan PRN (6) DVT prophylaxis: - SCDs Disposition: Advance diet today possibly home tomorrow pending clinical assessment Subjective Patient reports feeling much better since admission. She had about 6 BMs yesterday but so far today is doing better. She states the diarrhea is still pure liquid at this time. This is her first episode of c. diff. She tolerated her clear liquid diet and will advance to low fiber She reports some bloating discomfort but abdominal pain is much better improved She verbalizes no other complaints at this time Constitutional: + weight loss; no fever, no chills and no anorexia Ear, Nose, Mouth, Throat: no nasal congestion and no sore throat Respiratory: no cough, no dyspnea and no dyspnea on exertion Cardiovascular: no chest pain, no palpitations and no edema Gastrointestinal: + abdominal pain (intermittent and improving), + bloating, + diarrhea/loose stools and + blood in stools; no nausea and no vomiting Genitourinary (Female): no dysuria and no difficulty urinating Musculoskeletal: no back pain Integumentary: no rash Physical Exam 2 Vital Signs (Past 24 Hours): Last Vital Signs Temp 36.7 C 05/25/18 07:24 Pulse 80 05/25/18 07:24 Resp 18 05/25/18 07:24 BP 150/94 H 05/25/18 07:24 Pulse Ox 100 05/25/18 07:24 Constitutional: WD/WN, vitals as above no acute distress and not ill appearing Eyes: + anicteric sclerae ENMT: Ears: no hearing impairment Throat: uvula midline; no posterior oropharynx abnormality Neck: trachea midline Respiratory: normal respiratory effort, lungs clear to auscultation Cardiovascular: RRR, no murmur, no edema Gastrointestinal (Abdomen): Inspection/Auscultation: + abdomen distended and normal bowel sounds Percussion/Palpation: abdomen nontender and no guarding Musculoskeletal: Head/Neck/Chest: normocephalic, head atraumatic and neck supple Extremities: no cyanosis and no clubbing Skin: no rashes, warm and dry Neurologic: moves all extremities Psychiatric: A+Ox3, euthymic affect _ (1) Exacerbation of ulcerative colitis Digestive disease complication type: unspecified complication Qualified Code( s): K51.919 - Ulcerative colitis, unspecified with unspecified complications (2) Hypothyroidism Hypothyroidism type: acquired Qualified Code(s): E03.9 - Hypothyroidism, unspecified (3) Migraine Migraine type: other Status migrainosus presence: without status migrainosus Intractability: not intractable Qualified Code(s): G43.809 - Other migraine, not intractable, without status migrainosus
--- NOTE | 2018-05-25 11:52 | Gastroenterology Progress Note ---
Date of Service May 25, 2018 Assessment & Plan (1) C. difficile colitis: 38 year old female, history of UC admitted with abd pain, diarrhea with positive C.diff clinically improving on Vancomycin - Clear liquids today and then advance to low residue diet as tolerated - Vanco 125mg QID x 14 days - Continue her steroid taper - She wishes to establish without practice at discharge, will need GI follow up with Dr. Garay, myself or MYRTLE Grossman within 1 month - GI to sign off. Would recommend dietary advancements prior to discharge to ensure she tolerated. Thank you for allowing us to participate in the care of this patient. Please call with any acute changes, questions or concerns. Please see addendum below with additional recommendation from my supervising physician. (2) Exacerbation of ulcerative colitis: Supervising Physician Co-Signing Physician Notes Attending attestation I have seen, examined this patient, and agree with the findings and above by our mid-level provider MYRTLE Zaman. -Dramatically improved, minimal pain, diarrhea without blood and less frequent and more solidified -Vancomycin as an outpatient and follow-up in 4-6 weeks Subjective pt was seen and evaluated, chart reviewed. No complaints this AM. Signifciant other at bedside. ABD pain improving. Bowels improving. No black or bloody stools. Wishes to establish with our practice for GI follow up Constitutional: no fever and no chills Respiratory: no cough and no chest congestion Cardiovascular: no chest pain and no chest pain at rest Gastrointestinal: no abdominal pain, no blood in stools and no melena Physical Exam 2 Vital Signs (Past 24 Hours): Last Vital Signs Temp 36.7 C 05/25/18 07:24 Pulse 80 05/25/18 07:24 Resp 18 05/25/18 07:24 BP 150/94 H 05/25/18 07:24 Pulse Ox 100 05/25/18 07:24 Constitutional: well developed and well nourished; no acute distress Respiratory: normal respiratory effort, lungs clear to auscultation Cardiovascular: RRR, no murmur, no edema Gastrointestinal (Abdomen): normal bowel sounds, soft, nontender, no hepatosplenomegaly Skin: no rashes, warm and dry Results & Data Laboratory Results 01/23/19 01/23/19 01/22/19 Range/Units 06:11 06:11 23:44 WBC 10.44 (4.8-10.8) K/uL RBC 3.44 L (4.2-5.4) M/uL Hgb 10.2 L (12.0-16.0) g/dL Hct 32.1 L (37-47) % MCV 93.3 (80-100) fL MCH 29.7 (25-34) pg MCHC 31.8 L (32-36) g/dL RDW Std Deviation 51.7 H (36.4-46.3) fL RDW Coeff of Elayne 15.1 H (11.5-14.5) % Plt Count 257 (130-400) K/uL MPV 9.5 (7.4-10.4) fL Immature Gran % (Auto) 5.4 % Neut % (Auto) 57.1 % Lymph % (Auto) 22.5 % [place] % (Auto) 14.3 % Eos % (Auto) 0.4 % Baso % (Auto) 0.3 % Immature Gran # (Auto) 0.56 H (0.00-0.02) K/uL Neut # (Auto) 5.97 (1.4-6.5) K/uL Lymph # (Auto) 2.35 (1.2-3.4) K/uL [place] # (Auto) 1.49 H (0.11-0.59) K/uL Eos # (Auto) 0.04 (0-0.5) K/uL Baso # (Auto) 0.03 (0-0.2) K/uL Absolute Nucleated RBC 0.02 H (0-0) K/uL Nucleated RBC % (auto) 0.2 % Toxic Granulation 1+ Dohle Bodies 1+ Sodium 139 (136-145) mmol/L Potassium 4.2 D (3.5-5.1) mmol/L Chloride 106 (98-107) mmol/L Carbon Dioxide 27 (21-32) mmol/L Anion Gap 6.0 (3-11) BUN 4 L (7-18) mg/dl Creatinine 0.67 (0.6-1.2) mg/dl Est Cr Clr Drug Dosing 92.9 ml/min Est GFR ( Amer) 128.3 Est GFR (Non-Af Amer) 110.7 BUN/Creatinine Ratio 5.7 L (10-20) Glucose 111 H (70-99) mg/dl Calcium 8.6 (8.5-10.1) mg/dl Iron 52 (35-150) mcg/dl TIBC 213 L (250-450) mcg/dl Transferrin 163 L (200-360) mg/dl Transferrin % Sat 23 (15-50) % Ferritin 86.6 (8-388) ng/ml Urine Test Negative (Negative) Stl C. diff Tox B Gene (Neg) 05/24/18 Range/Units 10:40 WBC (4.8-10.8) K/uL RBC (4.2-5.4) M/uL Hgb (12.0-16.0) g/dL Hct (37-47) % MCV (80-100) fL MCH (25-34) pg MCHC (32-36) g/dL RDW Std Deviation (36.4-46.3) fL RDW Coeff of Elayne (11.5-14.5) % Plt Count (130-400) K/uL MPV (7.4-10.4) fL Immature Gran % (Auto) % Neut % (Auto) % Lymph % (Auto) % [place] % (Auto) % Eos % (Auto) % Baso % (Auto) % Immature Gran # (Auto) (0.00-0.02) K/uL Neut # (Auto) (1.4-6.5) K/uL Lymph # (Auto) (1.2-3.4) K/uL [place] # (Auto) (0.11-0.59) K/uL Eos # (Auto) (0-0.5) K/uL Baso # (Auto) (0-0.2) K/uL Absolute Nucleated RBC (0-0) K/uL Nucleated RBC % (auto) % Toxic Granulation Dohle Bodies Sodium (136-145) mmol/L Potassium (3.5-5.1) mmol/L Chloride (98-107) mmol/L Carbon Dioxide (21-32) mmol/L Anion Gap (3-11) BUN (7-18) mg/dl Creatinine (0.6-1.2) mg/dl Est Cr Clr Drug Dosing ml/min Est GFR ( Amer) Est GFR (Non-Af Amer) BUN/Creatinine Ratio (10-20) Glucose (70-99) mg/dl Calcium (8.5-10.1) mg/dl Iron (35-150) mcg/dl TIBC (250-450) mcg/dl Transferrin (200-360) mg/dl Transferrin % Sat (15-50) % Ferritin (8-388) ng/ml Urine Test (Negative) Stl C. diff Tox B Gene Pos C.diff Toxin B A* (Neg) _ (1) Exacerbation of ulcerative colitis Digestive disease complication type: unspecified complication Qualified Code( s): K51.919 - Ulcerative colitis, unspecified with unspecified complications
[2018-05-26] MEDS: ACETAMINOPHEN 325 MG TAB PO PRN ×2 (03:18→09:01)
[2018-05-26] MEDS: VANCOMYCIN HCL 125 MG/2.5ML SOLN PO SCH ×4 (05:36→23:50)
[2018-05-26] MEDS: RASPBERRY SYRUP 5 ML UDP PO SCH ×4 (05:36→23:50)
[2018-05-26] MEDS: NSS + 20MEQ KCL 20 MEQ/1,000 ML BAG IV SCH ×3 (07:54→23:50)
[2018-05-26] MEDS: ARMOUR THYROID 30 MG TAB PO SCH (08:57)
[2018-05-26] MEDS: MESALAMINE 800 MG PO SCH (08:58)
[2018-05-26] MEDS: DULOXETINE HCL 30 MG CAP PO SCH (08:58)
[2018-05-26] MEDS: predniSONE 5 MG TAB PO SCH (08:59)
[2018-05-26 09:03] LABS: Hematocrit (blood only) 37.3 % (37-47); Hemoglobin 12.1 g/dL (12.0-16.0); Mean Corpuscular Hgb Conc 32.4 g/dL (32-36); Mean Corpuscular Volume 92.6 fL (80-100); Mean Platelet Volume 9.4 fL (7.4-10.4); Platelet Count 282 K/uL (130-400); RDW Standard Deviation 51.4 fL (36.4-46.3); Red Blood Count 4.03 M/uL (4.2-5.4); White Blood Count 17.85 K/uL (4.8-10.8)
[2018-05-26 09:28] LABS: BUN Creatinine Ratio 6.6 (10-20); Calcium 8.5 mg/dl (8.5-10.1); Creatinine Clr Calc Pharmacy 79.8 ml/min; Est GFR (Non-African American) 95.8; Potassium 3.6 mmol/L (3.5-5.1)
--- NOTE | 2018-05-26 12:03 | Gastroenterology Progress Note ---
Date of Service May 26, 2018 Assessment & Plan (1) C. difficile colitis: 38 year old female, history of UC admitted with abd pain, diarrhea with positive C.diff clinically improving on Vancomycin - Bentyl 10 mg three times daily as needed for pain/crampin - Clear liquids today and then advance to low residue diet as tolerated - Vanco 125mg QID x 14 days - Continue her steroid taper - She wishes to establish without practice at discharge, will need GI follow up with Dr. Garay, myself or MYRTLE Grossman within 1 month - GI to sign off. Would recommend dietary advancements prior to discharge to ensure she tolerated. Thank you for allowing us to participate in the care of this patient. Please call with any acute changes, questions or concerns. Please see addendum below with additional recommendation from my supervising physician. (2) Exacerbation of ulcerative colitis: Supervising Physician Co-Signing Physician Notes Attending attestation I have seen, examined this patient, and agree with the findings and above by our mid-level provider MYRTLE Zaman. -Symptoms overall have improved -Eating solid food -KUB today given increase in WBC count Subjective pt was seen and evaluated, chart reviewed. Did have some abd pain, diarrhea this AM. Pain is bilat lower. Cramping. Before BM. Worse with the BM then improves. Tolerating PO. No nausea, vomiting. No fever, chills, CP, SOB Physical Exam 2 Vital Signs (Past 24 Hours): Last Vital Signs Temp 36.7 C 05/26/18 07:31 Pulse 97 H 05/26/18 07:31 Resp 18 05/26/18 07:31 BP 122/84 05/26/18 07:31 Pulse Ox 98 05/26/18 07:31 Constitutional: well developed and well nourished; no acute distress Respiratory: normal respiratory effort, lungs clear to auscultation Cardiovascular: RRR, no murmur, no edema Gastrointestinal (Abdomen): normal bowel sounds, soft, nontender, no hepatosplenomegaly Skin: no rashes, warm and dry Results & Data Laboratory Results 05/26/18 05/26/18 Range/Units 08:49 08:49 WBC 17.85 H (4.8-10.8) K/uL RBC 4.03 L (4.2-5.4) M/uL Hgb 12.1 (12.0-16.0) g/dL Hct 37.3 (37-47) % MCV 92.6 (80-100) fL MCH 30.0 (25-34) pg MCHC 32.4 (32-36) g/dL RDW Std Deviation 51.4 H (36.4-46.3) fL RDW Coeff of Elayne 15.0 H (11.5-14.5) % Plt Count 282 (130-400) K/uL MPV 9.4 (7.4-10.4) fL Sodium 137 (136-145) mmol/L Potassium 3.6 (3.5-5.1) mmol/L Chloride 102 (98-107) mmol/L Carbon Dioxide 27 (21-32) mmol/L Anion Gap 8.0 (3-11) BUN 5 L (7-18) mg/dl Creatinine 0.78 (0.6-1.2) mg/dl Est Cr Clr Drug Dosing 79.8 ml/min Est GFR ( Amer) 111.0 Est GFR (Non-Af Amer) 95.8 BUN/Creatinine Ratio 6.6 L (10-20) Glucose 90 (70-99) mg/dl Calcium 8.5 (8.5-10.1) mg/dl _ (1) Exacerbation of ulcerative colitis Digestive disease complication type: unspecified complication Qualified Code( s): K51.919 - Ulcerative colitis, unspecified with unspecified complications
--- NOTE | 2018-05-26 13:48 | XRay Report ---
KUB CLINICAL HISTORY: Leukocytosis. Reported history of C. difficile colitis. FINDINGS: 2 AP supine abdominal radiographs are compared to study dated 05/23/2018 and correlated with abdominal CT dated 05/24/2018. There is a nonobstructed abdominal bowel gas pattern. No evidence of i ntraperitoneal free air is seen on these supine images. No significant colonic fecal retention is obs erved. Wall thickening is suggested involving the right colon. There are no abnormal abdominal calcif ications. An intrauterine device is noted in the pelvis. The bony structures appear intact. IMPRESSION: 1. Nonobstructed abdominal bowel gas pattern. 2. Wall thickening is suggested involving the right colon. This would be consistent with the colitis seen by CT on 05/24/2018. Electronically signed by: Esa Vicente M.D. 05/26/2018 1:47 PM
[2018-05-26] MEDS: DICYCLOMINE HCL 10 MG CAP PO SCH ×2 (14:18→21:50)
--- NOTE | 2018-05-26 15:57 | Hospitalist Progress Note ---
Date of Service May 26, 2018 Assessment & Plan (1) C. difficile colitis: - This is the first episode of C. diff but is higher risk given her underlying Ulcerative Colitis and maybe some immunocompromise given steroid needs - Having about 4-5 BMs today and had some recurrent bloody diarrhea overnight - Some increased abdominal pain and bloating since starting a low fiber diet - Trial of Bentyl and she thinks she can still eat a regular diet and will monitor tolerance at dinner - Vancomycin 125 mg QID x 14 days total (treat until 06/06) - confirmed with her pharmacy they do have enough supplied there - Tylenol and Morphine PRN - IVF at 125 mL/hr and will D/C pending good diet tolerance (2) Exacerbation of ulcerative colitis: - Possible combination of both this and C. diff but likely more C. diff related - Will finish taper with Prednisone 5 mg x 5 days total - Mesalamine daily - GI following - appreciate assistance (3) Bloody diarrhea: -Likely in setting of C. diff but possible with her UC - Slightly anemic but asymptomatic - no need for transfusion - she states she does take a vitamin at home but no direct iron supplementation - Iron WNL but lower end - TIBC/transferrin is low - can have routine F/U (4) Hypothyroidism: - [place] 90 mg AM (5) Migraine: - No current issue - Sumatriptan PRN (6) DVT prophylaxis: - SCDs Disposition: Given symptoms with diet will monitor another day and possibly home tomorrow Subjective Reports feeling okay today but not as good as yesterday. States she had further bloody diarrhea last night. Feels that the abdominal bloating and pain increased some after eating dinner So far today tolerated breakfast and lunch but continues with some abdominal pain and bloating She has had about 5 BMs today and reports they are still liquid but almost like some "sediment" is present Constitutional: no fever, no chills and no anorexia Respiratory: no cough and no dyspnea Cardiovascular: no chest pain and no lightheadedness Gastrointestinal: + abdominal pain (intermittent and improving - cramping), + bloating, + diarrhea/loose stools and + blood in stools; no nausea and no vomiting Genitourinary (Female): no dysuria Integumentary: no rash Physical Exam 2 Vital Signs (Past 24 Hours): Last Vital Signs Temp 36.7 C 05/26/18 15:30 Pulse 92 H 05/26/18 15:30 Resp 18 05/26/18 15:30 BP 138/85 05/26/18 15:30 Pulse Ox 97 05/26/18 15:30 Constitutional: WD/WN, vitals as above no acute distress and not ill appearing Eyes: + anicteric sclerae ENMT: Ears: no hearing impairment Throat: uvula midline; no posterior oropharynx abnormality Neck: trachea midline Respiratory: normal respiratory effort, lungs clear to auscultation Cardiovascular: RRR, no murmur, no edema Gastrointestinal (Abdomen): Inspection/Auscultation: + abdomen distended and normal bowel sounds Percussion/Palpation: abdomen nontender and no guarding Musculoskeletal: Head/Neck/Chest: normocephalic, head atraumatic and neck supple Extremities: no cyanosis and no clubbing Skin: no rashes, warm and dry Neurologic: moves all extremities Psychiatric: A+Ox3, euthymic affect _ (1) Exacerbation of ulcerative colitis Digestive disease complication type: unspecified complication Qualified Code( s): K51.919 - Ulcerative colitis, unspecified with unspecified complications (2) Migraine Intractability: not intractable Migraine type: other Status migrainosus presence: without status migrainosus Qualified Code(s): G43.809 - Other migraine, not intractable, without status migrainosus (3) Hypothyroidism Hypothyroidism type: acquired Qualified Code(s): E03.9 - Hypothyroidism, unspecified
[2018-05-27] MEDS: RASPBERRY SYRUP 5 ML UDP PO SCH ×2 (05:36→13:17)
[2018-05-27] MEDS: VANCOMYCIN HCL 125 MG/2.5ML SOLN PO SCH ×2 (05:36→13:16)
[2018-05-27] MEDS: DULOXETINE HCL 30 MG CAP PO SCH (08:14)
[2018-05-27] MEDS: ARMOUR THYROID 30 MG TAB PO SCH (08:14)
[2018-05-27] MEDS: predniSONE 5 MG TAB PO SCH (08:14)
[2018-05-27] MEDS: DICYCLOMINE HCL 10 MG CAP PO SCH ×2 (08:15→13:17)
[2018-05-27] MEDS: MESALAMINE 800 MG PO SCH (08:15)
[2018-05-27] MEDS: NSS + 20MEQ KCL 20 MEQ/1,000 ML BAG IV SCH (08:16)
[2018-05-27 08:40] LABS: Basophils # (auto) 0.04 K/uL (0-0.2); Basophils % (auto) 0.3 %; Eosinophils # (auto) 0.12 K/uL (0-0.5); Eosinophils % (auto) 0.8 %; Hematocrit (blood only) 37.5 % (37-47); Hemoglobin 12.1 g/dL (12.0-16.0); Immature Granulocytes # (auto) 0.62 K/uL (0.00-0.02); Immature Granulocytes % (auto) 4.3 %; Lymphocytes # (auto) 3.63 K/uL (1.2-3.4); Mean Corpuscular Hgb Conc 32.3 g/dL (32-36); Mean Corpuscular Volume 92.6 fL (80-100); Mean Platelet Volume 9.3 fL (7.4-10.4); Monocytes % (auto) 15.1 %; Neutrophils # (auto) 7.92 K/uL (1.4-6.5); Neutrophils % (auto) 54.5 %; Nucleated RBC # (auto) 0.05 K/uL (0-0); Nucleated RBC % (auto) 0.3 %; Platelet Count 297 K/uL (130-400); RDW Standard Deviation 50.9 fL (36.4-46.3); Red Blood Count 4.05 M/uL (4.2-5.4); White Blood Count 14.53 K/uL (4.8-10.8)
--- NOTE | 2018-05-27 09:32 | Gastroenterology Progress Note ---
Date of Service May 27, 2018 Assessment & Plan (1) C. difficile colitis: 38 year old female, history of UC admitted with abd pain, diarrhea with positive C.diff clinically improving on Vancomycin. Leukocytosis noted yesterday , KUB without evidence of ileus/megacolon, slightly improved with Bentyl - Leukocytosis this AM improving - Would hold on additional ABX for now but will discuss with attending - Bentyl 10 mg three times daily as needed for pain/cramping - Low residue diet as tolerated - Vanco 125mg QID x 14 days - Continue her steroid taper - She wishes to establish without practice at discharge, will need GI follow up with Dr. Garay, myself or MYRTLE Grossman within 1 month - GI to sign off. Would recommend dietary advancements prior to discharge to ensure she tolerated. Thank you for allowing us to participate in the care of this patient. Please call with any acute changes, questions or concerns. Please see addendum below with additional recommendation from my supervising physician. (2) Exacerbation of ulcerative colitis: Supervising Physician Co-Signing Physician Notes Attending attestation I have seen, examined this patient, and agree with the findings and above by our mid-level provider MYRTLE Zaman. -Doing well, stools becoming more solidified, less pain, -Continue oral vancomycin -Bentyl PRN -Advance to low residue diet Subjective Pt was seen and evaluated, chart reviewed. Leukocytosis noted yesterday. KUB without gracia colon. Did have some abd pain, diarrhea again this AM. Pain is bilat lower. Cramping. Before BM. Worse with the BM then improves. Does feel like this is less severe now that Bentyl was started. Tolerating PO - low residue. No nausea, vomiting. No fever, chills, CP, SOB Constitutional: no fever, no chills and no fatigue Respiratory: no cough, no chest congestion and no dyspnea Cardiovascular: no chest pain, no chest pain at rest and no radiating jaw, neck or arm pain Gastrointestinal: no abdominal pain, no belching, no early satiety, no vomiting , no cramping and no change in stools Physical Exam 2 Vital Signs (Past 24 Hours): Last Vital Signs Temp 37.1 C 05/27/18 08:07 Pulse 111 H 05/27/18 08:07 Resp 15 05/27/18 08:07 BP 139/86 05/27/18 08:07 Pulse Ox 97 05/27/18 08:07 Constitutional: well developed and well nourished; no acute distress Respiratory: normal respiratory effort, lungs clear to auscultation Cardiovascular: RRR, no murmur, no edema Gastrointestinal (Abdomen): normal bowel sounds, soft, nontender, no hepatosplenomegaly Skin: no rashes, warm and dry Results & Data Laboratory Results 05/27/18 Range/Units 08:20 WBC 14.53 H (4.8-10.8) K/uL RBC 4.05 L (4.2-5.4) M/uL Hgb 12.1 (12.0-16.0) g/dL Hct 37.5 (37-47) % MCV 92.6 (80-100) fL MCH 29.9 (25-34) pg MCHC 32.3 (32-36) g/dL RDW Std Deviation 50.9 H (36.4-46.3) fL RDW Coeff of Elayne 15.0 H (11.5-14.5) % Plt Count 297 (130-400) K/uL MPV 9.3 (7.4-10.4) fL Immature Gran % (Auto) 4.3 % Neut % (Auto) 54.5 % Lymph % (Auto) 25.0 % [place] % (Auto) 15.1 % Eos % (Auto) 0.8 % Baso % (Auto) 0.3 % Immature Gran # (Auto) 0.62 H (0.00-0.02) K/uL Neut # (Auto) 7.92 H (1.4-6.5) K/uL Lymph # (Auto) 3.63 H (1.2-3.4) K/uL [place] # (Auto) 2.20 H (0.11-0.59) K/uL Eos # (Auto) 0.12 (0-0.5) K/uL Baso # (Auto) 0.04 (0-0.2) K/uL Absolute Nucleated RBC 0.05 H (0-0) K/uL Nucleated RBC % (auto) 0.3 % _ (1) Exacerbation of ulcerative colitis Digestive disease complication type: unspecified complication Qualified Code( s): K51.919 - Ulcerative colitis, unspecified with unspecified complications
--- NOTE | 2018-05-31 17:08 | Discharge Summary ---
Date of Service May 27, 2018 Admission HPI Per Admitting Provider 38yo female with history of Ulcerative Colitis diagnosed 1 year ago and followed by [facility], Dr. Manuel Tidwell, who presents with worsening GI symptoms including frequent and loose bloody bowel movements (10+ each day) as well as lower quadrant abdominal pain. She has had mild bloody, formed bowel movements since January 2018. At that time mesalamine enemas were added to oral mesalamine (which she had been taking since May 2017). Then, about 3 weeks ago, she was placed on a slow prednisone taper. She is down to 10mg/day. Despite oral mesalamine, rectal mesalamine, and a prednisone course her UC symptoms have worsened. She has lost at least 5 pounds of weight recently. Question of subjective fever in the last few days. No sick contacts. Traveled to [facility] [place] time but no other travels. She last saw her GI physician this am in [place] and they recommended hospitalization. She came to [facility] because she actually lives in [place]. She reports her GI physician this am contacted [facility]. Her last colonoscopy was May 2017 at time of her diagnosis. Admission Exam Per Admitting Provider Constitutional: well developed and well nourished; no acute distress and not ill appearing Eyes: PERRL ENMT: external ear and nose normal, oropharynx normal Ears: no TM abnormality Mouth: no oropharynx abnormality and no oral mucosal abnormality Neck: trachea midline, no thyromegaly Respiratory: normal respiratory effort, lungs clear to auscultation Cardiovascular: RRR, no murmur, no edema Heart Sounds: normal S1 and normal S2 Vessels: posterior tibial pulses present and dorsalis pedis pulses present; no JVD Extremities: normal capillary refill Gastrointestinal (Abdomen): Inspection/Auscultation: abdomen normal to inspection and normal bowel sounds; abdomen not distended Percussion/Palpation : + abdomen tender (mild, RLQ/LLQ) and abdomen soft; no guarding, abdomen not rigid and no hepatosplenomegaly Musculoskeletal: no cyanosis or clubbing, extremities motor strength 5/5 Skin: no rashes, warm and dry Neurologic: deep tendon reflexes 2+ bilaterally and moves all extremities; no focal motor deficits Psychiatric: A+Ox3, euthymic affect Lymphatic: no cervical lymphadenopathy Principal Diagnosis C difficile colitis Discharge Exam Constitutional WD/WN, vitals as above Eyes PERRL, conjunctivae normal, anicteric sclerae ENMT external ear and nose normal, oropharynx normal Neck trachea midline, no thyromegaly Respiratory normal respiratory effort, lungs clear to auscultation Cardiovascular RRR, no murmur, no edema Gastrointestinal (Abdomen) Inspection/Auscultation: abdomen normal to inspection and normal bowel sounds; abdomen not distended Percussion/Palpation: + abdomen tender (mild TTP in LLQ) and normal to percussion; no guarding, abdomen not rigid and no ascites Musculoskeletal no cyanosis or clubbing, extremities motor strength 5/5 Skin no rashes, warm and dry Neurologic patellar DTR's 2+ bilat, sensation intact and PERRL, EOMI, accommodation nl, no face palsy, no dysarthria Psychiatric A+Ox3, euthymic affect Lymphatic no cervical or axillary lymphadenopathy Discharge Data Allergies Allergy/AdvReac Type Severity Reaction Status Date / Time Penicillins Allergy Unknown rash Verified 05/24/18 10:36 azithromycin [From Zithromax] Allergy Hives Verified 05/24/18 10:36 OTC COUGH MEDICINES Allergy Unknown hives Uncoded 05/24/18 10:36 Consultations 05/24/18 11:32 ED Decision to Admit Stat 05/24/18 14:22 Consult Gastroenterology Routine Ordered Studies 05/24/18 10:13 CT abd pelvis oral and IV con Stat Hospital Course (1) C. difficile colitis: - This is the first episode of C. diff but is higher risk given her underlying Ulcerative Colitis and maybe some immunocompromise given steroid needs - less frequency in BM and less pain, no bleeding with treatment with Vancomycin - Bentyl added for colon and bowel spasms, helped a lot - Vancomycin 125 mg QID x 14 days total (treat until 06/06) - confirmed with her pharmacy they do have enough supplied there d/c to home on Vanco, Bentyl follow up with PCP in [place] will establish care with Dr. Garay with [facility] in a month, follow for UC can return to work on 06/01 (2) Exacerbation of ulcerative colitis: - Possible combination of both this and C. diff but likely more C. diff related - Will finish taper with Prednisone 5 mg x 5 days (2 more doses needed after discharge) - Mesalamine daily - GI following - again, will establish with Dr. Garay in one month (3) Bloody diarrhea: -Likely in setting of C. diff but possible with her UC - resolved with treatment with Vancomycin PO Hb stable - Iron WNL but lower end - TIBC/transferrin is low - can have routine F/U (4) Hypothyroidism: - [place] 90 mg AM (5) Migraine: - No current issue - Sumatriptan PRN (6) DVT prophylaxis: - SCDs Disposition: d/c to home after she tolerated a low fiber diet Total Time Total Time Spent Total Time Spent (In Minutes): 40 minutes Total Time Includes: Examination of the Patient, Discharge Planning, Medication Reconciliation, Communication With Other Providers ([facility]) and Other ( discussion with patient's family) Discharge Plan Discharge Items Patient Disposition: Home - Self-Care Reason For Visit: ULCERATIVE COLITIS FLARE Discharge Diagnosis: Clostridium difficile Colitis Condition: Good Discharge Goals: Decrease discomfort, Improve disease control and Prevent disease Activity: Resume your previous activity Non-emergency contact: Primary Care Provider Call non-emergency contact if: you have any medication questions, your symptoms worsen and you have a fever Follow-up/Referrals: Ray Garay [Physician] - 06/23/18 1:45 pm (Please, follow up at [facility] with Dr. Ray Garay on June 23 at 1:45 pm. *This office is located in [facility] at [address] in [place]. If you need to change this appointment, call the office at [phone].) Nicol Spicer MD [Primary Care Provider] - 05/31/18 8:20 am (Please, follow up with Dr. Spicer on WednesdayMay 31 at 8:20 am. *If you need to change this appointment, call the office at [phone].) Diet: Low Fiber Diet Comment: low residue diet, can gradually increase consistency as tolerated Addtl Provider Instructions: Clostridium difficile Colitis: - Please see the handout about this condition. Unfortunately given your ulcerative colitis this can put you at risk for c. diff. - You are going to be at risk for this condition again. Especially if you need to be on antibiotics for infections. Please let any medical provider who is planning on giving you antibiotics know that you do have a history of c. diff so they are aware. - The goal is to get your bowel movements to get more formed and back to normal which should happen over the next few days - You will need to take Vancomycin 125 mg four times a day until June 06 to complete a 14 day course - Recommend to eat a low fiber diet for the next couple weeks until this recovers - Use Bentyl three times a day scheduled for next week, if pain subsides completely then you can use just as needed in the future for abdominal cramps Exacerbation of ulcerative colitis: - Possible combination of both this and C. diff but likely more C. diff related - Will finish a taper with Prednisone 5 mg, last dose would be 05/29 (Wednesday) Bloody diarrhea: -Likely in setting of C. diff but possible related to the ulcerative colitis Prescriptions: New dicyclomine 10 mg Capsule 10 mg PO TID 30 Days Qty: 90 RF: 1 vancomycin 125 mg capsule 125 mg PO Q6H 10 Days Qty: 40 RF: 0 Continue thyroid (pork) [[place] Thyroid] 90 mg tablet 90 mg PO DAILY RF: 0 duloxetine [Cymbalta] 30 mg capsule,delayed release(DR/EC) 30 mg PO DAILY RF: 0 ibuprofen 800 mg tablet 800 mg PO .Q4-6 PRN (Reason: pain) RF: 0 almotriptan malate 12.5 mg Tablet 12.5 mg PO UD PRN (Reason: Migraine Headache) RF: 0 mesalamine with cleansing wipe 4 gram/60 mL Enema Kit 4 g [place] HS RF: 0 mesalamine 800 mg Tablet,Delayed Release (Dr/Ec) 2,400 mg PO DAILY RF: 0 Stand-Alone Forms: [facility]/Other Patient Handouts: Infec Clostridium Difficile Discharge Orders: Discharge Order (Routine); Ordered 05/27/18 Ordered By: Red Cisneros Admission Data Admit Date/Time: 05/24/18 12:27 Attending Provider: Rde Cisneros Admit Provider: Moncho Miguel Primary Care Provider: Nicol Spicer Other Providers: Moncho Miguel ; Ray Garay Service: Medical Other Interventions: Discharge Summary Assessment (RN) Last Done: 05/27/18 16:54 Pending Studies at Discharge: No DC Date/Time DO NOT enter until pt leaves facility: 05/27/18 17:28
== END 2018-05-27 17:28 | disposition home or self-care (01) | DRG 372 ==
LOC: ED 09:47 → SUATTDRO 12:27 → 4W 12:27

== ENCOUNTER 2018-07-14 15:49 | Inpatient (IN) ==
[2018-07-14] MEDS ORDERED: SODIUM CHLORIDE 0.9% 1000ML 1,000 ML IV SCH (17:00)
[2018-07-14 17:07] LABS: Basophils # (auto) 0.03 K/uL (0-0.2); Basophils % (auto) 0.2 %; Eosinophils # (auto) 0.24 K/uL (0-0.5); Eosinophils % (auto) 1.6 %; Hematocrit (blood only) 26.5 % (37-47); Hemoglobin 8.1 g/dL (12.0-16.0); Immature Granulocytes # (auto) 0.05 K/uL (0.00-0.02); Immature Granulocytes % (auto) 0.3 %; Lymphocytes # (auto) 2.98 K/uL (1.2-3.4); Lymphocytes % (auto) 19.5 %; Mean Corpuscular Hgb Conc 30.6 g/dL (32-36); Mean Corpuscular Volume 88.6 fL (80-100); Mean Platelet Volume 8.4 fL (7.4-10.4); Monocytes # (auto) 2.31 K/uL (0.11-0.59); Monocytes % (auto) 15.1 %; Neutrophils # (auto) 9.66 K/uL (1.4-6.5); Neutrophils % (auto) 63.3 %; Platelet Count 758 K/uL (130-400); RDW Coefficient of Variation 16.1 % (11.5-14.5); RDW Standard Deviation 51.8 fL (36.4-46.3); Red Blood Count 2.99 M/uL (4.2-5.4); White Blood Count 15.27 K/uL (4.8-10.8)
--- NOTE | 2018-07-14 17:10 | XRay Report ---
SINGLE VIEW CHEST CLINICAL HISTORY: Atypical chest pain. FINDINGS: An AP, portable, upright chest radiograph is compared to study dated 02/18/2016. The examin ation is mild degraded by portable technique and patient rotation. The cardiomediastinal silhouette is unremarkable. The lungs and pleural spaces are clear. No pneumothorax is seen. The bony thorax is grossly intact. IMPRESSION: No active disease in the chest. Electronically signed by: Esa Vicente M.D. 07/14/2018 5:09 PM
[2018-07-14] MEDS ORDERED: methylPREDNISolone 125 MG/2 ML VIAL IV STA (17:16)
[2018-07-14] MEDS ORDERED: PROCHLORPERAZINE 2 ML IV ONE (17:16)
[2018-07-14] MEDS ORDERED: ACETAMINOPHEN 1,000 MG/100 ML VIAL IV STA (17:16)
[2018-07-14 17:25] LABS: Albumin Level 2.5 gm/dl (3.4-5.0); Calcium 8.6 mg/dl (8.5-10.1); Creatinine Clr Calc Pharmacy 71.4 ml/min; Est GFR (Non-African American) 86.3; Magnesium 1.9 mg/dl (1.8-2.4)
[2018-07-14 17:37] LABS: RBC Morphology Unremarkable
[2018-07-14 17:38] LABS: D Dimer 2110 ug/L FEU (0-500)
[2018-07-14 17:44] LABS: Albumin Globulin Ratio 0.5 (0.9-2); Bilirubin,Total 0.3 mg/dl (0.2-1); Globulin 5.2 gm/dl (2.5-4.0); Phosphorus 4.3 mg/dl (2.5-4.9); Total Protein 7.7 gm/dl (6.4-8.2); Troponin I 0.125 ng/ml (0-0.045)
[2018-07-14 18:07] LABS: Pregnancy Test, Serum Negative (Negative)
[2018-07-14 18:20] LABS: Partial Thromboplastin Time 27.7 Seconds (21.0-31.0); Prothrombin Time 10.2 Seconds (9.0-12.0)
[2018-07-14] MEDS ORDERED: OPTIRAY 320 125ml IV PRN (19:37)
--- NOTE | 2018-07-14 19:53 | CT Scan Report ---
CT ANGIOGRAM OF THE CHEST CLINICAL HISTORY: Atypical chest pain. COMPARISON STUDY: Chest x-ray dated 07/14/2018. TECHNIQUE: Following the IV administration of 99 cc of Optiray 320, CT angiogram of the chest was per formed from the upper abdomen to the thoracic inlet utilizing the pulmonary embolus protocol. Images are reviewed in the axial, sagittal, and coronal planes. 3-D MIPS images are created and assessed. IV contrast was administered without complication. A dose lowering technique was utilized adhering to the principles of ALARA. CT DOSE: 173.58 mGy.cm FINDINGS: Thyroid: Imaged portions of the thyroid gland are normal in size and attenuation. Thoracic aorta: The thoracic aorta is normal in caliber and demonstrates standard 3-vessel arch anato my. No dissection is seen. Pulmonary vasculature: The pulmonary trunk is normal in caliber. There are no filling defects identif ied in main, lobar, or segmental pulmonary branches to suggest pulmonary embolus. Heart: The heart is normal in size and without pericardial effusion. Lungs and pleural spaces: The lungs and pleural spaces are clear noting dependent hypoventilatory kody nge. The trachea and central airways are patent. Mediastinum: There is no mediastinal lymphadenopathy. Yasmeen: Clear. Axillae: There is no axillary lymphadenopathy. Upper abdomen: Partially visualized upper abdominal viscera is within normal limits. Skeletal structures: No lytic or blastic bony lesions are seen. Postoperative change is suggested in the left shoulder. IMPRESSION: 1. There is no evidence of pulmonary embolus in the main, lobar, or segmental pulmonary arteries. 2. The lungs are clear. Electronically signed by: Esa Vicente M.D. 07/14/2018 7:51 PM
[2018-07-14] MEDS ORDERED: SODIUM CHLORIDE 0.9% 1000ML 1,000 ML IV ONE (20:31)
--- NOTE | 2018-07-14 21:35 | History & Physical Report ---
Date of Service July 14, 2018 Assessment & Plan (1) Elevated troponin: 38-year-old female with chest pain found to be acutely anemic and have elevated troponin. Past medical history significant for ulcerative colitis. Assessment -Elevated troponin with questionable T wave changes in lateral leads and chest pain. -Differential diagnosis includes ACS, symptomatic severe anemia Plan -Med telemetry -Trend troponins every 6h -Echo in the a.m., morning EKG -In light of significant anemia less than 8.5, symptoms and elevated troponin, will transfuse 2 units PRBCs. As below. FEN/GI: heart healthy diet. No fluids indicated at this time. will get 2 units PRBCs. DVT ppx: SCDs CODE STATUS: FULL DISPO: med/tele (2) Thrombocytosis: Elevated to 758 up (from 297 2 mo ago). Most likely an acute phase reaction. -follow, recommend repeat CBC in outpatient setting 1 week post discharge. (3) Normocytic anemia: -Likely multifactorial/ACD -- ulcerative colitis and recent bout of bloody stools due to c. diff earlier in May. -Ordered reticulocyte count, ferritin level, B12, folate, transferrin saturation to be sent before PRBCs transfused. -Also in light of elevated troponin and symptomatic, will transfuse 2 units PRBCs. Consent granted by attending. (4) Hypothyroidism: Continue home thyroid medication, check TSH (5) Ulcerative (chronic) enterocolitis: continue home mesalamine. -<3% experience decreased hgb/hct when taking this medicine. (6) Cough: has been persistent for 3 weeks, a/w night sweats from time to time. Pt has just finished prednisone course in outpatient setting. Solumedrol 125mg given in ED. CXR benign. h/o exercise induced asthma. -given recent h/o c. diff colitis, abx was withheld. -likely bronchitis picture -- could consider corticosteroid containing inhaler for 2 weeks. -pt also gives consent for HIV screen given h/o unprotected sex (with 1 partner in last year, has mirena IUD) will screen. (7) Leukocytosis: 2/2 prednisone treatment finished 1 day [employer]. follow. (8) Anxiety: cont home klonazepam, duloxetine. (9) Migraine: chronic. Has f/u with neurology. cont home triptan mediation. Tylenol PRN. History of Present Illness Primary Care Provider: Nicol Spicer MD 38-year-old female with history of ulcerative colitis diagnosed a little over 1 year ago and followed by [facility] and hospitalized here in May for frequent loose and bloody bowel movements which was determined to be C. difficile colitis, treated with the appropriate antibiotics and loose stools have more or less resolved although patient has UC. She states she is having 2 loose nonbloody stools per day now. She states ever since then she her energy has never been the same and she has felt weak and has experienced dyspnea on exertion. She also has had a persistent dry cough for the last 3 months, treated with prednisone and albuterol in outpatient setting, just finished last pred dose 1 day [employer]. Endorses dyspnea on exertion, mid upper sternal chest pain worsening in this last week. Also endorses persistent headache, she is seen by a neurologist for this. ED course: Patient is normotensive, tachycardic pulse of 120, satting 98 on room air, afebrile. CBC shows leukocytosis white blood cell count 15, hemoglobin hematocrit 8.1/26.5, MCV 88.6. Platelet count elevated 758. D-dimer elevated 2110. Chemistry profile reveals mild hypokalemia potassium 3.0, creatinine 0.85. Normal calcium, magnesium 1.9, phosphorus 4.3. Troponin elevated at 0.125. Albumin 2.5. Lipase normal. HCG normal. Chest CTA shows no pulmonary embolism and lungs clear. Chest x-ray unremarkable. EKG shows T wave abnormalities in the lateral leads. No ST elevations. Given 2 L of NSS, 1000 mg Tylenol, 125 mg Solu-Medrol, Compazine. PMH: chronic migraines, ulcerative colitis, hypothyroidism, h/o c. diff colitis, anxiety. Social hx: works at [employer]. Denies tobacco or illicit drug use. 2 alcoholic drinks/month. Recently engaged. [employer] Associate/sexual hx: has mirena IUD, and is amenorrheic. 1 partner in last year, does not use condoms. Allergies Allergy/AdvReac Type Severity Reaction Status Date / Time Penicillins Allergy Unknown rash Verified 06/22/18 09:59 azithromycin [From Zithromax] Allergy Hives Verified 06/22/18 09:59 OTC COUGH MEDICINES Allergy Unknown hives Uncoded 06/22/18 09:59 Home Medications Home Medications Medication Instructions Recorded Confirmed Type almotriptan malate 12.5 mg PO UD PRN 05/23/18 07/14/18 History acetaminophen 1,000 mg PO Q6H PRN 07/14/18 07/14/18 History albuterol sulfate 1 - 2 puff INHALATION Q6H PRN 07/14/18 07/14/18 History clonazepam 0.5 mg PO Q6H PRN 07/14/18 07/14/18 History duloxetine 60 mg PO QAM 07/14/18 07/14/18 History ibuprofen [Advil] 800 mg PO Q8H PRN 07/14/18 07/14/18 History mesalamine [Lialda] 4.8 g PO DAILY 07/14/18 07/14/18 History thyroid (pork) [[place] Thyroid] 90 mg PO DAILY 07/14/18 07/14/18 History Past Med/Surg History Medical History Anxiety (Chronic) Hypothyroid (Chronic) Migraines (Chronic) Ulcerative colitis (Chronic) H/O lipoma Sacroiliitis Surgical History H/O rotator cuff surgery bilateral Family History Mother Hypothyroid Paget disease of bone Father Hypothyroid Hypertension Aunt Ulcerative colitis Brother Crohn's disease Sister Graves disease Social History Preferred Language: French Communication Ability: Effective Instructor Knitting Required: No Beliefs That Will Affect Care: None marital status: marital status details: no kids; currently in relationship Current Living Situation: Spouse current occupational status: employed 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 GENERAL: Awake, alert to person, place, and time, nontoxic-appearing, in no distress. Pallor present. HENT: Normocephalic, atraumatic. . Mucus membranes appear moist. EYES: Normal conjunctiva. Sclera non-icteric. EOMI. NECK: Supple. Full range of motion. No JVD RESPIRATORY: Clear to auscultation. Normal work of breathing. CARDIAC: Regular rate, normal rhythm. Extremities warm and well perfused, 2+ radial pulses bilaterally; 2+ posterior tibialis pulses bilaterally. LOWER EXTREMITIES: Inspection of calves reveal equal size bilaterally. They are non-tender. No edema. No discoloration. NEURO: No focal gross focal motor deficits noted. Sensation in tact. CN II-XII grossly in tact. SKIN: Rash not present. No jaundice noted. Significant lesions include multiple tattoos. PSYCH: Appropriate mood and affect. Cooperative. Exam as done by Candice Cabrera MD, Chief Operator. Results & Data Laboratory Results 07/14/18 07/14/18 07/14/18 Range/Units 22:30 22:29 22:29 WBC (4.8-10.8) K/uL RBC (4.2-5.4) M/uL Hgb (12.0-16.0) g/dL Hct (37-47) % MCV (80-100) fL MCH (25-34) pg MCHC (32-36) g/dL RDW Std Deviation (36.4-46.3) fL RDW Coeff of Elayne (11.5-14.5) % Plt Count (130-400) K/uL MPV (7.4-10.4) fL Immature Gran % (Auto) % Neut % (Auto) % Lymph % (Auto) % [place] % (Auto) % Eos % (Auto) % Baso % (Auto) % Reticulocyte % (Auto) 3.3 H (0.5-2.0) % Immature Gran # (Auto) (0.00-0.02) K/uL Neut # (Auto) (1.4-6.5) K/uL Lymph # (Auto) (1.2-3.4) K/uL [place] # (Auto) (0.11-0.59) K/uL Eos # (Auto) (0-0.5) K/uL Baso # (Auto) (0-0.2) K/uL Reticulocyte # 0.09 (0.02-0.10) 10^6/uL RBC Morphology PT (9.0-12.0) Seconds INR (0.9-1.1) APTT (21.0-31.0) Seconds PTT Ratio D-Dimer (0-500) ug/L FEU Sodium (136-145) mmol/L Potassium (3.5-5.1) mmol/L Chloride (98-107) mmol/L Carbon Dioxide (21-32) mmol/L Anion Gap (3-11) BUN (7-18) mg/dl Creatinine (0.6-1.2) mg/dl Est Cr Clr Drug Dosing ml/min Est GFR ( Amer) Est GFR (Non-Af Amer) BUN/Creatinine Ratio (10-20) Glucose (70-99) mg/dl Calcium (8.5-10.1) mg/dl Phosphorus (2.5-4.9) mg/dl Magnesium (1.8-2.4) mg/dl Iron Transferrin Transferrin % Sat Ferritin Total Bilirubin (0.2-1) mg/dl AST (15-37) U/L ALT (12-78) U/L Alkaline Phosphatase (45-117) U/L Troponin I (0-0.045) ng/ml Total Protein (6.4-8.2) gm/dl Albumin (3.4-5.0) gm/dl Globulin (2.5-4.0) gm/dl Albumin/Globulin Ratio (0.9-2) Lipase (73-393) U/L Vitamin B12 Pending Folate Pending HCG, Qual (Negative) HIV 1&2 Ab/P24 Ag 4thGn Pending Blood Type Antibody Screen 07/14/18 07/14/18 07/14/18 Range/Units 22:29 19:46 16:50 WBC (4.8-10.8) K/uL RBC (4.2-5.4) M/uL Hgb (12.0-16.0) g/dL Hct (37-47) % MCV (80-100) fL MCH (25-34) pg MCHC (32-36) g/dL RDW Std Deviation (36.4-46.3) fL RDW Coeff of Elayne (11.5-14.5) % Plt Count (130-400) K/uL MPV (7.4-10.4) fL Immature Gran % (Auto) % Neut % (Auto) % Lymph % (Auto) % [place] % (Auto) % Eos % (Auto) % Baso % (Auto) % Reticulocyte % (Auto) (0.5-2.0) % Immature Gran # (Auto) (0.00-0.02) K/uL Neut # (Auto) (1.4-6.5) K/uL Lymph # (Auto) (1.2-3.4) K/uL [place] # (Auto) (0.11-0.59) K/uL Eos # (Auto) (0-0.5) K/uL Baso # (Auto) (0-0.2) K/uL Reticulocyte # (0.02-0.10) 10^6/uL RBC Morphology PT 10.2 (9.0-12.0) Seconds INR 1.0 (0.9-1.1) APTT 27.7 (21.0-31.0) Seconds PTT Ratio 1.0 D-Dimer (0-500) ug/L FEU Sodium (136-145) mmol/L Potassium (3.5-5.1) mmol/L Chloride (98-107) mmol/L Carbon Dioxide (21-32) mmol/L Anion Gap (3-11) BUN (7-18) mg/dl Creatinine (0.6-1.2) mg/dl Est Cr Clr Drug Dosing ml/min Est GFR ( Amer) Est GFR (Non-Af Amer) BUN/Creatinine Ratio (10-20) Glucose (70-99) mg/dl Calcium (8.5-10.1) mg/dl Phosphorus (2.5-4.9) mg/dl Magnesium (1.8-2.4) mg/dl Iron Pending Transferrin Pending Transferrin % Sat Pending Ferritin Pending Total Bilirubin (0.2-1) mg/dl AST (15-37) U/L ALT (12-78) U/L Alkaline Phosphatase (45-117) U/L Troponin I (0-0.045) ng/ml Total Protein (6.4-8.2) gm/dl Albumin (3.4-5.0) gm/dl Globulin (2.5-4.0) gm/dl Albumin/Globulin Ratio (0.9-2) Lipase (73-393) U/L Vitamin B12 Folate HCG, Qual (Negative) HIV 1&2 Ab/P24 Ag 4thGn Blood Type O Positive Antibody Screen NEGATIVE 07/14/18 07/14/18 07/14/18 Range/Units 16:50 16:50 16:50 WBC (4.8-10.8) K/uL RBC (4.2-5.4) M/uL Hgb (12.0-16.0) g/dL Hct (37-47) % MCV (80-100) fL MCH (25-34) pg MCHC (32-36) g/dL RDW Std Deviation (36.4-46.3) fL RDW Coeff of Elayne (11.5-14.5) % Plt Count (130-400) K/uL MPV (7.4-10.4) fL Immature Gran % (Auto) % Neut % (Auto) % Lymph % (Auto) % [place] % (Auto) % Eos % (Auto) % Baso % (Auto) % Reticulocyte % (Auto) (0.5-2.0) % Immature Gran # (Auto) (0.00-0.02) K/uL Neut # (Auto) (1.4-6.5) K/uL Lymph # (Auto) (1.2-3.4) K/uL [place] # (Auto) (0.11-0.59) K/uL Eos # (Auto) (0-0.5) K/uL Baso # (Auto) (0-0.2) K/uL Reticulocyte # (0.02-0.10) 10^6/uL RBC Morphology PT (9.0-12.0) Seconds INR (0.9-1.1) APTT (21.0-31.0) Seconds PTT Ratio D-Dimer 2110 H* (0-500) ug/L FEU Sodium 135 L (136-145) mmol/L Potassium 3.0 L (3.5-5.1) mmol/L Chloride 101 (98-107) mmol/L Carbon Dioxide 27 (21-32) mmol/L Anion Gap 7.0 (3-11) BUN 17 (7-18) mg/dl Creatinine 0.85 (0.6-1.2) mg/dl Est Cr Clr Drug Dosing 71.4 ml/min Est GFR ( Amer) 100.0 Est GFR (Non-Af Amer) 86.3 BUN/Creatinine Ratio 20.0 (10-20) Glucose 108 H (70-99) mg/dl Calcium 8.6 (8.5-10.1) mg/dl Phosphorus 4.3 (2.5-4.9) mg/dl Magnesium 1.9 (1.8-2.4) mg/dl Iron Transferrin Transferrin % Sat Ferritin Total Bilirubin 0.3 (0.2-1) mg/dl AST 9 L (15-37) U/L ALT 19 (12-78) U/L Alkaline Phosphatase 90 (45-117) U/L Troponin I 0.125 H* (0-0.045) ng/ml Total Protein 7.7 (6.4-8.2) gm/dl Albumin 2.5 L (3.4-5.0) gm/dl Globulin 5.2 H (2.5-4.0) gm/dl Albumin/Globulin Ratio 0.5 L (0.9-2) Lipase 75 (73-393) U/L Vitamin B12 Folate HCG, Qual Negative (Negative) HIV 1&2 Ab/P24 Ag 4thGn Blood Type Antibody Screen 07/14/18 Range/Units 16:50 WBC 15.27 H (4.8-10.8) K/uL RBC 2.99 L (4.2-5.4) M/uL Hgb 8.1 L (12.0-16.0) g/dL Hct 26.5 L (37-47) % MCV 88.6 (80-100) fL MCH 27.1 (25-34) pg MCHC 30.6 L (32-36) g/dL RDW Std Deviation 51.8 H (36.4-46.3) fL RDW Coeff of Elayne 16.1 H (11.5-14.5) % Plt Count 758 H (130-400) K/uL MPV 8.4 (7.4-10.4) fL Immature Gran % (Auto) 0.3 % Neut % (Auto) 63.3 % Lymph % (Auto) 19.5 % [place] % (Auto) 15.1 % Eos % (Auto) 1.6 % Baso % (Auto) 0.2 % Reticulocyte % (Auto) (0.5-2.0) % Immature Gran # (Auto) 0.05 H (0.00-0.02) K/uL Neut # (Auto) 9.66 H (1.4-6.5) K/uL Lymph # (Auto) 2.98 (1.2-3.4) K/uL [place] # (Auto) 2.31 H (0.11-0.59) K/uL Eos # (Auto) 0.24 (0-0.5) K/uL Baso # (Auto) 0.03 (0-0.2) K/uL Reticulocyte # (0.02-0.10) 10^6/uL RBC Morphology Unremarkable PT (9.0-12.0) Seconds INR (0.9-1.1) APTT (21.0-31.0) Seconds PTT Ratio D-Dimer (0-500) ug/L FEU Sodium (136-145) mmol/L Potassium (3.5-5.1) mmol/L Chloride (98-107) mmol/L Carbon Dioxide (21-32) mmol/L Anion Gap (3-11) BUN (7-18) mg/dl Creatinine (0.6-1.2) mg/dl Est Cr Clr Drug Dosing ml/min Est GFR ( Amer) Est GFR (Non-Af Amer) BUN/Creatinine Ratio (10-20) Glucose (70-99) mg/dl Calcium (8.5-10.1) mg/dl Phosphorus (2.5-4.9) mg/dl Magnesium (1.8-2.4) mg/dl Iron Transferrin Transferrin % Sat Ferritin Total Bilirubin (0.2-1) mg/dl AST (15-37) U/L ALT (12-78) U/L Alkaline Phosphatase (45-117) U/L Troponin I (0-0.045) ng/ml Total Protein (6.4-8.2) gm/dl Albumin (3.4-5.0) gm/dl Globulin (2.5-4.0) gm/dl Albumin/Globulin Ratio (0.9-2) Lipase (73-393) U/L Vitamin B12 Folate HCG, Qual (Negative) HIV 1&2 Ab/P24 Ag 4thGn Blood Type Antibody Screen Supervising Physician Co-Signing Physician Notes Patient seen and examined, chart reviewed, case discussed with Dr. Cabrera and I agree with her assessment and plan as above. Briefly, patient is a 38yo female with history of UC/Sacroilitis, recent C. diff colitis presenting with dry cough as well as FALL and substernal chest pain. The cough has been present x 3 months. Chest discomfort and dyspnea x 1 week. On exam she is afebrile, tachycardic otherwise HD stable, NAD Skin - mild pallor of conjunctiva and oral mucosa HEENT - NC/AT, PERRL, MMM, no OP lesions, neck supple, no JVD Heart - +S1/S2, regular, tachycardic, no m/r/g, splitting of S2 with inspiration Lungs - CTA, no rales/rhonchi/wheezes Abd - +BS, soft, NT/ND Ext - no edema labs and images reviewed. Significant for elevated WBC at 15.27, normochromic/normocytic anemia with Hg=8.1 and Hct=26.5. This is down from . Vap=[id number], Friidd=[id number], Trop=0.125. CTA negative for PE or acute pulmonary process EKG wtih ST at 121, normal axis, QTc=62, nonspecific T wave changes Assessmetn/Plan: 38yo female presenting with URI symptoms, cough, FALL as well as substernal chest discomfort, +troponin and t-wave flattening. ?myocarditis from viral infection. ?symptomatic anemia with cardiac strain - less likely as Hg is still 8.1, patient young -Will admit to med with tele -Trend cardiac enzymes -Echo in AM -Check iron studies, transfuse 2u PRBCs -Remainder of plan as above Resident Activity Tracking Resident Involvement: Resident Care Provided Care Provided: Adult Hospital Medicine (1) Hypothyroidism Hypothyroidism type: acquired Qualified Code(s): E03.9 - Hypothyroidism, unspecified
[2018-07-14] MEDS ORDERED: POTASSIUM CHLORIDE 20 MEQ TABCR PO STA (21:43)
[2018-07-14] MEDS ORDERED: SODIUM CHLORIDE 0.9% 250 ML IV PRN (22:11)
[2018-07-14 22:48] LABS: Reticulocyte % 3.3 % (0.5-2.0); Reticulocytes # 0.09 10^6/uL (0.02-0.10)
[2018-07-14] MEDS ORDERED: MAGNESIUM OXIDE 400 MG TAB ONE (22:48)
--- NOTE | 2018-07-14 23:19 | Emergency Department Note ---
Entered by Marquez Mays acting as a scribe for History of Present Illness General Chief complaint: Cardiac Assessment Stated complaint: CHEST PAIN, SOB, MIGRAINE FOR WEEKS Time Seen by Provider: 07/14/18 16:45 Source: patient Limitations: no limitations History of Present Illness Provider complaint: Cough/Migraine Onset (ago): week(s) (3) Location: chest (Cough) Pain Consistency: + other (persistent) Maximum Pain Intensity: 9 Quality: + other (cough) Associated symptoms: + chest pain, + cough, + fever/chills (Night sweats), + headaches and + shortness of breath; no nausea/vomiting Treatments prior to arrival: other (Albuterol/Prednisone) The patient is a 38 year old female who presents to the Emergency Room with complaints of a persistent cough and headache for the past couple of weeks. The patient states that she has been following with both her PCP and Neurologist recently. She was seen by her PCP 3 weeks ago for common cold symptoms and possi ble pneumonia. She was not started on any antibiotics as she has a recent history of C. diff two months ago. The patient was started on Albuterol and Prednisone in place of an antibiotic, and finished the Prednisone about 5 days ago. She notes that her cough is getting "much worse" and she is feeling short of breath with a discomfort in her chest. The cough is dry. The patient also notes that she was following with her neurologist as she began to develop an atypical headache a few weeks ago. She has migraines at baseline, but recently developed a "burning" pain to the crown of her head and a "crushing" pain across her whole head. This was atypical for her normal migrianes. The patient notes that this atypical migraine was much improved on the Prednisone. She has an appointment with neurology tomorrow. The patient has an IUD and is not on control. She has no history of blood clots and has not had any recent long trips or travel. There is a family history of strokes, but no family history of blood clots. The patient notes that she has been having "night sweats" and has been taking Tylenol and Advil every couple of hours. She has not had any urinary symptoms. Home Medications Home Medications Medication Instructions Recorded Confirmed Type almotriptan malate 12.5 mg PO UD PRN 05/23/18 07/14/18 History acetaminophen 1,000 mg PO Q6H PRN 07/14/18 07/14/18 History albuterol sulfate 1 - 2 puff INHALATION Q6H PRN 07/14/18 07/14/18 History clonazepam 0.5 mg PO Q6H PRN 07/14/18 07/14/18 History duloxetine 60 mg PO QAM 07/14/18 07/14/18 History ibuprofen [Advil] 800 mg PO Q8H PRN 07/14/18 07/14/18 History mesalamine [Lialda] 4.8 g PO DAILY 07/14/18 07/14/18 History thyroid (pork) [Albert Lea Thyroid] 90 mg PO DAILY 07/14/18 07/14/18 History Allergies Allergy/AdvReac Type Severity Reaction Status Date / Time Penicillins Allergy Unknown rash Verified 06/22/18 09:59 azithromycin [From Zithromax] Allergy Hives Verified 06/22/18 09:59 OTC COUGH MEDICINES Allergy Unknown hives Uncoded 06/22/18 09:59 Past Med/Surg History Medical History Anxiety (Chronic) Hypothyroid (Chronic) Migraines (Chronic) Ulcerative colitis (Chronic) H/O lipoma Sacroiliitis Surgical History H/O rotator cuff surgery bilateral Family History Mother Hypothyroid Paget disease of bone Father Hypothyroid Hypertension Aunt Ulcerative colitis Brother Crohn's disease Sister Graves disease Social History Preferred Language: Italian Communication Ability: Effective Supervisor Plastic Sheets Required: No Beliefs That Will Affect Care: None marital status: marital status details: no kids; currently in relationship Current Living Situation: Spouse current occupational status: employed 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 and A total of 10 systems reviewed and were otherwise negative Physical Exam Vital Signs Vital Signs - 24 hr 07/14/18 15:52 07/14/18 17:00 07/14/18 17:05 Temperature 36.8 C Temperature Source Oral Sepsis Recent Fever Within 48 Hours No Sepsis Action Taken by Nursing No Action Required Pulse Rate 128 H 128 H 121 H Pulse Rate from SpO2 Sensor 122 H Pulse Rhythm Regular Regular Pulse Strength Normal Respiratory Rate 18 18 16 Respiratory Effort / Characteristics Non-Labored Respiratory Depth Normal Respiratory Pattern Blood Pressure 127/93 114/83 Blood Pressure [Left Arm] Blood Pressure Mean 104 93 Blood Pressure Mean [Left Arm] Blood Pressure Position [Left Arm] Pulse Oximetry 97 97 98 Oxygen Delivery Method Room Air Room Air 07/14/18 17:30 07/14/18 18:00 07/14/18 18:30 Temperature Temperature Source Sepsis Recent Fever Within 48 Hours Sepsis Action Taken by Nursing Pulse Rate 124 H 123 H 120 H Pulse Rate from SpO2 Sensor 124 H 123 H 122 H Pulse Rhythm Pulse Strength Respiratory Rate 20 22 14 Respiratory Effort / Characteristics Respiratory Depth Respiratory Pattern Blood Pressure 103/68 114/64 114/75 Blood Pressure [Left Arm] Blood Pressure Mean 79 80 88 Blood Pressure Mean [Left Arm] Blood Pressure Position [Left Arm] Pulse Oximetry 98 99 98 Oxygen Delivery Method Room Air Room Air Room Air 07/14/18 19:00 07/14/18 20:16 07/14/18 20:30 Temperature Temperature Source Sepsis Recent Fever Within 48 Hours Sepsis Action Taken by Nursing Pulse Rate 115 H 115 H Pulse Rate from SpO2 Sensor 116 H 113 H 111 H Pulse Rhythm Pulse Strength Respiratory Rate 16 18 16 Respiratory Effort / Characteristics Respiratory Depth Respiratory Pattern Blood Pressure 117/78 118/87 120/86 Blood Pressure [Left Arm] Blood Pressure Mean 91 97 97 Blood Pressure Mean [Left Arm] Blood Pressure Position [Left Arm] Pulse Oximetry 96 96 96 Oxygen Delivery Method Room Air Room Air Room Air 07/14/18 22:54 07/14/18 23:35 07/14/18 23:45 Temperature 37 C Temperature Source Oral Sepsis Recent Fever Within 48 Hours Sepsis Action Taken by Nursing Pulse Rate 118 H 101 H Pulse Rate from SpO2 Sensor 119 H Pulse Rhythm Pulse Strength Respiratory Rate 24 18 20 Respiratory Effort / Characteristics Non-Labored Spontaneous Respiratory Depth Normal Respiratory Pattern Regular Blood Pressure 119/87 133/85 Blood Pressure [Left Arm] 129/88 Blood Pressure Mean 97 Blood Pressure Mean [Left Arm] 101 Blood Pressure Position [Left Arm] Sitting Pulse Oximetry 98 96 99 Oxygen Delivery Method Room Air Room Air Room Air 07/15/18 00:47 07/15/18 01:09 07/15/18 01:24 Temperature 37.0 C 37.1 C 37.0 C Temperature Source Oral Oral Oral Sepsis Recent Fever Within 48 Hours Sepsis Action Taken by Nursing Pulse Rate 127 H 122 H 116 H Pulse Rate from SpO2 Sensor Pulse Rhythm Pulse Strength Respiratory Rate 16 16 16 Respiratory Effort / Characteristics Respiratory Depth Respiratory Pattern Blood Pressure 118/76 114/78 116/75 Blood Pressure [Left Arm] Blood Pressure Mean 90 90 88 Blood Pressure Mean [Left Arm] Blood Pressure Position [Left Arm] Pulse Oximetry 98 97 98 Oxygen Delivery Method GENERAL: Awake, alert, fatigued-appearing, in no distress HENT: Normocephalic, atraumatic. Oropharynx with dry mucous membranes and otherwise unremarkable. EYES: Normal conjunctiva. Sclera non-icteric. NECK: Supple. No nuchal rigidity. FROM. No JVD. RESPIRATORY: Scant intermittent wheeze, otherwise clear. CARDIAC: Tachycardic rate, normal rhythm. Extremities warm and well perfused. Pulses equal. ABDOMEN: Soft, non-distended. No tenderness to palpation. No rebound or guarding. No masses. RECTAL: Deferred. MUSCULOSKELETAL: Chest examination reveals no tenderness. The back is symmetrical on inspection without obvious abnormality. There is no CVA tenderness to palpation. No joint edema. LOWER EXTREMITIES: Calves are equal size bilaterally and non-tender. No edema. No discoloration. NEURO: Normal sensorium. No sensory or motor deficits noted. SKIN: No rash or jaundice noted. Course 1707: Past medical records reviewed. The patient was evaluated in room C1B, and a complete history and physical examination were performed. 2035: I reviewed the patient's case with Dr. Vazquez [place] [facility] She will evaluate the patient for further management. Administered Medications Magnesium Oxide (Mag-Ox) 400 mg PO ONE ONE Stop: 07/15/18 21:46 Last Admin: 07/14/18 22:55 Dose: 400 mg Documented by: [id number] Miscellaneous (Order Awaiting Action) 1 ea N/A QS MARILU Stop: 08/14/18 00:14 Last Admin: 07/15/18 01:00 Dose: Not Given Documented by: [id number] Miscellaneous (Order Awaiting Action) 1 ea N/A QS MARILU Stop: 08/14/18 00:14 Last Admin: 07/15/18 01:00 Dose: Not Given Documented by: [id number] Discontinued Medications Sodium Chloride (Nss 1000ml) 1,000 mls @ 999 mls/hr IV .Q1H1M MARILU Stop: 07/14/18 18:00 Last Infusion: 07/14/18 18:07 Dose: 0 mls/hr Documented by: [id number] Admin: 07/14/18 17:06 Dose: 999 mls/hr Documented by: [id number] Acetaminophen (Ofirmev) 1,000 mg in 100 mls @ 400 mls/hr IV NOW STA Stop: 07/14/18 17:30 Last Infusion: 07/14/18 17:43 Dose: 0 mls/hr Documented by: [id number] Admin: 07/14/18 17:28 Dose: 400 mls/hr Documented by: [id number] Prochlorperazine (Compazine) 2 mls @ 1 mls/min IV ONE ONE Stop: 07/14/18 17:17 Last Admin: 07/14/18 17:28 Dose: 1 mls/min Documented by: [id number] Sodium Chloride (Nss 1000ml) 1,000 mls @ 999 mls/hr IV .Q1H1M ONE Stop: 07/14/18 21:31 Last Infusion: 07/14/18 22:19 Dose: 0 mls/hr Documented by: [id number] Admin: 07/14/18 21:17 Dose: 999 mls/hr Documented by: [id number] Ioversol (Optiray 320 125ml) 99 ml IV ONCE PRN PRN Reason: Interaction Checking Stop: 07/18/18 19:36 Last Admin: 07/14/18 19:37 Dose: 99 ml Documented by: [id number] Magnesium Oxide (Mag-Ox) Confirm Administered Dose 400 mg .ROUTE .STK-MED ONE Stop: 07/14/18 22:49 Last Admin: 07/14/18 22:55 Dose: Not Given Documented by: [id number] Methylprednisolone (Solumedrol) 125 mg IV NOW STA Stop: 07/14/18 17:17 Last Admin: 07/14/18 17:28 Dose: 125 mg Documented by: [id number] Potassium Chloride (Klor-Con M20) 80 meq PO NOW STA Stop: 07/14/18 21:44 Last Admin: 07/14/18 22:54 Dose: 80 meq Documented by: [id number] Medical Decision Making Differential Diagnosis Differential diagnosis: Etiologies such as infections, reactive airway disease, COPD, pneumonia, pleural effusion, pulmonary edema, ARDS, pneumothorax, CHF, cardiac ischemia, cardiac tamponade, dysrhythmia, anemia, pulmonary embolism, musculoskeletal, gastrointestinal process, tension headache, cluster headache, migraine headache, meningitis/encephalitis, sinusitis, dental infection, temporal arteritis, glaucoma, carbon monoxide exposure, ICH, SAH, infection, intracranial mass, sinus thrombosis, arterial dissection, as well as others were entertained. Medical Records Attestation: I reviewed the patient's medical records. Home Medications Current Medication List: was personally reviewed by me Laboratory Data Attestation: I reviewed the patient's lab results. Result diagrams: 07/14/18 16:50 07/14/18 16:50 Lab Results 07/14/18 07/14/18 07/14/18 Range/Units 16:50 16:50 16:50 WBC 15.27 H (4.8-10.8) K/uL RBC 2.99 L (4.2-5.4) M/uL Hgb 8.1 L (12.0-16.0) g/dL Hct 26.5 L (37-47) % MCV 88.6 (80-100) fL MCH 27.1 (25-34) pg MCHC 30.6 L (32-36) g/dL RDW Std Deviation 51.8 H (36.4-46.3) fL RDW Coeff of Elayne 16.1 H (11.5-14.5) % Plt Count 758 H (130-400) K/uL MPV 8.4 (7.4-10.4) fL Immature Gran % (Auto) 0.3 % Neut % (Auto) 63.3 % Lymph % (Auto) 19.5 % Granville % (Auto) 15.1 % Eos % (Auto) 1.6 % Baso % (Auto) 0.2 % Reticulocyte % (Auto) (0.5-2.0) % Immature Gran # (Auto) 0.05 H (0.00-0.02) K/uL Neut # (Auto) 9.66 H (1.4-6.5) K/uL Lymph # (Auto) 2.98 (1.2-3.4) K/uL Granville # (Auto) 2.31 H (0.11-0.59) K/uL Eos # (Auto) 0.24 (0-0.5) K/uL Baso # (Auto) 0.03 (0-0.2) K/uL Reticulocyte # (0.02-0.10) 10^6/uL RBC Morphology Unremarkable PT (9.0-12.0) Seconds INR (0.9-1.1) APTT (21.0-31.0) Seconds PTT Ratio D-Dimer 2110 H* (0-500) ug/L FEU Sodium 135 L (136-145) mmol/L Potassium 3.0 L (3.5-5.1) mmol/L Chloride 101 (98-107) mmol/L Carbon Dioxide 27 (21-32) mmol/L Anion Gap 7.0 (3-11) BUN 17 (7-18) mg/dl Creatinine 0.85 (0.6-1.2) mg/dl Est Cr Clr Drug Dosing 71.4 ml/min Est GFR ( Amer) 100.0 Est GFR (Non-Af Amer) 86.3 BUN/Creatinine Ratio 20.0 (10-20) Glucose 108 H (70-99) mg/dl Calcium 8.6 (8.5-10.1) mg/dl Phosphorus 4.3 (2.5-4.9) mg/dl Magnesium 1.9 (1.8-2.4) mg/dl Iron (35-150) mcg/dl Transferrin (200-360) mg/dl Transferrin % Sat (15-50) % Ferritin (8-388) ng/ml Total Bilirubin 0.3 (0.2-1) mg/dl AST 9 L (15-37) U/L ALT 19 (12-78) U/L Alkaline Phosphatase 90 (45-117) U/L Troponin I 0.125 H* (0-0.045) ng/ml Total Protein 7.7 (6.4-8.2) gm/dl Albumin 2.5 L (3.4-5.0) gm/dl Globulin 5.2 H (2.5-4.0) gm/dl Albumin/Globulin Ratio 0.5 L (0.9-2) Lipase 75 (73-393) U/L Vitamin B12 (211-911) pg/ml Folate (>5.38) ng/ml HCG, Qual (Negative) HIV 1&2 Ab/P24 Ag 4thGn (Neg) Blood Type Blood Type Recheck Antibody Screen Crossmatch 07/14/18 07/14/18 07/14/18 Range/Units 16:50 16:50 19:46 WBC (4.8-10.8) K/uL RBC (4.2-5.4) M/uL Hgb (12.0-16.0) g/dL Hct (37-47) % MCV (80-100) fL MCH (25-34) pg MCHC (32-36) g/dL RDW Std Deviation (36.4-46.3) fL RDW Coeff of Elayne (11.5-14.5) % Plt Count (130-400) K/uL MPV (7.4-10.4) fL Immature Gran % (Auto) % Neut % (Auto) % Lymph % (Auto) % Granville % (Auto) % Eos % (Auto) % Baso % (Auto) % Reticulocyte % (Auto) (0.5-2.0) % Immature Gran # (Auto) (0.00-0.02) K/uL Neut # (Auto) (1.4-6.5) K/uL Lymph # (Auto) (1.2-3.4) K/uL Granville # (Auto) (0.11-0.59) K/uL Eos # (Auto) (0-0.5) K/uL Baso # (Auto) (0-0.2) K/uL Reticulocyte # (0.02-0.10) 10^6/uL RBC Morphology PT 10.2 (9.0-12.0) Seconds INR 1.0 (0.9-1.1) APTT 27.7 (21.0-31.0) Seconds PTT Ratio 1.0 D-Dimer (0-500) ug/L FEU Sodium (136-145) mmol/L Potassium (3.5-5.1) mmol/L Chloride (98-107) mmol/L Carbon Dioxide (21-32) mmol/L Anion Gap (3-11) BUN (7-18) mg/dl Creatinine (0.6-1.2) mg/dl Est Cr Clr Drug Dosing ml/min Est GFR ( Amer) Est GFR (Non-Af Amer) BUN/Creatinine Ratio (10-20) Glucose (70-99) mg/dl Calcium (8.5-10.1) mg/dl Phosphorus (2.5-4.9) mg/dl Magnesium (1.8-2.4) mg/dl Iron (35-150) mcg/dl Transferrin (200-360) mg/dl Transferrin % Sat (15-50) % Ferritin (8-388) ng/ml Total Bilirubin (0.2-1) mg/dl AST (15-37) U/L ALT (12-78) U/L Alkaline Phosphatase (45-117) U/L Troponin I (0-0.045) ng/ml Total Protein (6.4-8.2) gm/dl Albumin (3.4-5.0) gm/dl Globulin (2.5-4.0) gm/dl Albumin/Globulin Ratio (0.9-2) Lipase (73-393) U/L Vitamin B12 (211-911) pg/ml Folate (>5.38) ng/ml HCG, Qual Negative (Negative) HIV 1&2 Ab/P24 Ag 4thGn (Neg) Blood Type O Positive Blood Type Recheck Antibody Screen NEGATIVE Crossmatch See Detail 07/14/18 07/14/18 07/14/18 Range/Units 19:49 22:29 22:29 WBC (4.8-10.8) K/uL RBC (4.2-5.4) M/uL Hgb (12.0-16.0) g/dL Hct (37-47) % MCV (80-100) fL MCH (25-34) pg MCHC (32-36) g/dL RDW Std Deviation (36.4-46.3) fL RDW Coeff of Elayne (11.5-14.5) % Plt Count (130-400) K/uL MPV (7.4-10.4) fL Immature Gran % (Auto) % Neut % (Auto) % Lymph % (Auto) % Granville % (Auto) % Eos % (Auto) % Baso % (Auto) % Reticulocyte % (Auto) (0.5-2.0) % Immature Gran # (Auto) (0.00-0.02) K/uL Neut # (Auto) (1.4-6.5) K/uL Lymph # (Auto) (1.2-3.4) K/uL Granville # (Auto) (0.11-0.59) K/uL Eos # (Auto) (0-0.5) K/uL Baso # (Auto) (0-0.2) K/uL Reticulocyte # (0.02-0.10) 10^6/uL RBC Morphology PT (9.0-12.0) Seconds INR (0.9-1.1) APTT (21.0-31.0) Seconds PTT Ratio D-Dimer (0-500) ug/L FEU Sodium (136-145) mmol/L Potassium (3.5-5.1) mmol/L Chloride (98-107) mmol/L Carbon Dioxide (21-32) mmol/L Anion Gap (3-11) BUN (7-18) mg/dl Creatinine (0.6-1.2) mg/dl Est Cr Clr Drug Dosing ml/min Est GFR ( Amer) Est GFR (Non-Af Amer) BUN/Creatinine Ratio (10-20) Glucose (70-99) mg/dl Calcium (8.5-10.1) mg/dl Phosphorus (2.5-4.9) mg/dl Magnesium (1.8-2.4) mg/dl Iron 11 L (35-150) mcg/dl Transferrin 175 L (200-360) mg/dl Transferrin % Sat 4 L (15-50) % Ferritin 54.0 (8-388) ng/ml Total Bilirubin (0.2-1) mg/dl AST (15-37) U/L ALT (12-78) U/L Alkaline Phosphatase (45-117) U/L Troponin I (0-0.045) ng/ml Total Protein (6.4-8.2) gm/dl Albumin (3.4-5.0) gm/dl Globulin (2.5-4.0) gm/dl Albumin/Globulin Ratio (0.9-2) Lipase (73-393) U/L Vitamin B12 545 (211-911) pg/ml Folate 10.33 (>5.38) ng/ml HCG, Qual (Negative) HIV 1&2 Ab/P24 Ag 4thGn (Neg) Blood Type Blood Type Recheck O Positive Antibody Screen Crossmatch 07/14/18 07/14/18 07/14/18 Range/Units 22:29 22:30 23:58 WBC (4.8-10.8) K/uL RBC (4.2-5.4) M/uL Hgb (12.0-16.0) g/dL Hct (37-47) % MCV (80-100) fL MCH (25-34) pg MCHC (32-36) g/dL RDW Std Deviation (36.4-46.3) fL RDW Coeff of Elayne (11.5-14.5) % Plt Count (130-400) K/uL MPV (7.4-10.4) fL Immature Gran % (Auto) % Neut % (Auto) % Lymph % (Auto) % Granville % (Auto) % Eos % (Auto) % Baso % (Auto) % Reticulocyte % (Auto) 3.3 H (0.5-2.0) % Immature Gran # (Auto) (0.00-0.02) K/uL Neut # (Auto) (1.4-6.5) K/uL Lymph # (Auto) (1.2-3.4) K/uL Granville # (Auto) (0.11-0.59) K/uL Eos # (Auto) (0-0.5) K/uL Baso # (Auto) (0-0.2) K/uL Reticulocyte # 0.09 (0.02-0.10) 10^6/uL RBC Morphology PT (9.0-12.0) Seconds INR (0.9-1.1) APTT (21.0-31.0) Seconds PTT Ratio D-Dimer (0-500) ug/L FEU Sodium (136-145) mmol/L Potassium (3.5-5.1) mmol/L Chloride (98-107) mmol/L Carbon Dioxide (21-32) mmol/L Anion Gap (3-11) BUN (7-18) mg/dl Creatinine (0.6-1.2) mg/dl Est Cr Clr Drug Dosing ml/min Est GFR ( Amer) Est GFR (Non-Af Amer) BUN/Creatinine Ratio (10-20) Glucose (70-99) mg/dl Calcium (8.5-10.1) mg/dl Phosphorus (2.5-4.9) mg/dl Magnesium (1.8-2.4) mg/dl Iron (35-150) mcg/dl Transferrin (200-360) mg/dl Transferrin % Sat (15-50) % Ferritin (8-388) ng/ml Total Bilirubin (0.2-1) mg/dl AST (15-37) U/L ALT (12-78) U/L Alkaline Phosphatase (45-117) U/L Troponin I 0.092 H* (0-0.045) ng/ml Total Protein (6.4-8.2) gm/dl Albumin (3.4-5.0) gm/dl Globulin (2.5-4.0) gm/dl Albumin/Globulin Ratio (0.9-2) Lipase (73-393) U/L Vitamin B12 (211-911) pg/ml Folate (>5.38) ng/ml HCG, Qual (Negative) HIV 1&2 Ab/P24 Ag 4thGn Neg (Neg) Blood Type Blood Type Recheck Antibody Screen Crossmatch Imaging Data Attestation: I personally reviewed and interpreted this imaging study as follows: Radiologist's Impression: CT ANGIOGRAM OF THE CHEST CLINICAL HISTORY: Atypical chest pain. COMPARISON STUDY: Chest x-ray dated 07/14/2018. TECHNIQUE: Following the IV administration of 99 cc of Optiray 320, CT angiogram of the chest was performed from the upper abdomen to the thoracic inlet utilizing the pulmonary embolus protocol. Images are reviewed in the axial, sagittal, and coronal planes. 3-D MIPS images are created and assessed. IV contrast was administered without complication. A dose lowering technique was utilized adhering to the principles of ALARA. CT DOSE: 173.58 mGy.cm FINDINGS: Thyroid: Imaged portions of the thyroid gland are normal in size and attenuation. Thoracic aorta: The thoracic aorta is normal in caliber and demonstrates standard 3-vessel arch anatomy. No dissection is seen. Pulmonary vasculature: The pulmonary trunk is normal in caliber. There are no filling defects identified in main, lobar, or segmental pulmonary branches to suggest pulmonary embolus. Heart: The heart is normal in size and without pericardial effusion. Lungs and pleural spaces: The lungs and pleural spaces are clear noting dependent hypoventilatory change. The trachea and central airways are patent. Mediastinum: There is no mediastinal lymphadenopathy. Yasmeen: Clear. Axillae: There is no axillary lymphadenopathy. Upper abdomen: Partially visualized upper abdominal viscera is within normal limits. Skeletal structures: No lytic or blastic bony lesions are seen. Postoperative change is suggested in the left shoulder. IMPRESSION: 1. There is no evidence of pulmonary embolus in the main, lobar, or segmental pulmonary arteries. 2. The lungs are clear. Electronically signed by: Esa Vicente M.D. 07/14/2018 7:51 PM SINGLE VIEW CHEST CLINICAL HISTORY: Atypical chest pain. FINDINGS: An AP, portable, upright chest radiograph is compared to study dated 02/18/2016. The examination is mild degraded by portable technique and patient rotation. The cardiomediastinal silhouette is unremarkable. The lungs and pleural spaces are clear. No pneumothorax is seen. The bony thorax is grossly intact. IMPRESSION: No active disease in the chest. Electronically signed by: Esa Vicente M.D. 07/14/2018 5:09 PM ECG Data Attestation: I personally reviewed and interpreted this ECG as follows: Indication: SOB/dyspnea Rate (beats per minute): 121 Rhythm: sinus tachycardia Findings: + other (RSR Pattern similar to prior) and + nonspecific-ST abn Comparison ECG Date: from (02/18/2016) Change: no significant change Blood Pressure Blood Pressure Findings: Normal blood pressure MDM Narrative The patient is a pleasant 38 y/o woman with a pmhx of anxiety, migraines, ulcerative colitis, Cdiff colitis who presents to the emergency department with with persistent cough, congestion, cp and sob per HPI. On arrival the patient is uncomfortable but in NAD, AF with HR 120s and otherwise VSS. EKG shows sinus tachycardia with RSR patterns and nonspecific TW abnormalities similar to prior. CXR negative for acute process. D-dimer elevated. Troponin elevated at 0.125. WBC 15.2, nonspecific and in the setting of recent steroid course. H/H 8.1/26.5 decreased from last values in May of -/32-37. New thrombocytosis of 758, which could be reactive. Chemistry without acidosis. Limited bedside echo with grossly normal RV and LV size and function. No pericardial effusion. CT negative for PE or acute process otherwise. Patient feeling improved after IVF, steroids as well as compazine and apap for migraine. Unclear etiology to patients symptoms and lab abnormalities including troponin, anemia/thrombocytosis at this time. ACS or myocarditis thought to be less likely at this time given no evidence of failure at this time. Reasonable to admit for further management. Case d/w Dr[place] Vazquez, [facility], who will evaluate the patient for admission. Impression & Plan Elevated troponin, SOB (shortness of breath), Thrombocytosis, Anemia Discharge Plan Visit Data *Final* Discharge Date/Time: 07/14/18 23:35 Chief Complaint: Cardiac Assessment Stated Complaint: CHEST PAIN, SOB, MIGRAINE FOR WEEKS ED Provider: Darell Rowland Discharge Problem: Elevated troponin, SOB (shortness of breath), Thrombocytosis, Anemia Patient Disposition: Admitted As Inpatient Discharge Instructions Interventions: ED Discharge Assessment Last Done: 07/14/18 23:35 Discharge Problem: Anemia Qualifiers: Anemia type: unspecified type Qualified Code(s): D64.9 - Anemia, unspecified The scribe's documentation has been prepared under my direction and personally reviewed by me in its entirety. I confirm that the note above accurately refl ects all work, treatment, procedures, and medical decision making performed by me.
[2018-07-14 23:25] LABS: Folate (Folic Acid) 10.33 ng/ml (>5.38)
[2018-07-14] MEDS ORDERED: ACETAMINOPHEN 500 MG TAB PO PRN (23:51)
[2018-07-14] MEDS ORDERED: ONDANSETRON INJ 2 MG/ML 2 ML VIAL IV PRN (23:51)
[2018-07-14] MEDS ORDERED: clonazePAM 0.5 MG TAB PO PRN (23:51)
[2018-07-14] MEDS ORDERED: ALBUTEROL HFA 8 GM INHALER INH PRN (23:51)
[2018-07-15] MEDS ORDERED: PERFLUTREN LIPID MICROSPHERE (DEFINITY) IV ONE (07:08)
[2018-07-15 08:11] LABS: Basophils # (auto) 0.01 K/uL (0-0.2); Basophils % (auto) 0.1 %; Hematocrit (blood only) 28.5 % (37-47); Hemoglobin 9.3 g/dL (12.0-16.0); Immature Granulocytes # (auto) 0.04 K/uL (0.00-0.02); Immature Granulocytes % (auto) 0.5 %; Lymphocytes # (auto) 1.51 K/uL (1.2-3.4); Lymphocytes % (auto) 17.9 %; Mean Corpuscular Hgb Conc 32.6 g/dL (32-36); Mean Corpuscular Volume 86.1 fL (80-100); Mean Platelet Volume 8.5 fL (7.4-10.4); Monocytes # (auto) 0.87 K/uL (0.11-0.59); Monocytes % (auto) 10.3 %; Neutrophils # (auto) 5.99 K/uL (1.4-6.5); Neutrophils % (auto) 71.2 %; Platelet Count 579 K/uL (130-400); RDW Standard Deviation 47.7 fL (36.4-46.3); Red Blood Count 3.31 M/uL (4.2-5.4); White Blood Count 8.42 K/uL (4.8-10.8)
[2018-07-15 08:40] LABS: BUN Creatinine Ratio 16.9 (10-20); Calcium 8.8 mg/dl (8.5-10.1); Creatinine Clr Calc Pharmacy 117.2 ml/min; Est GFR (African American) 139.5; Est GFR (Non-African American) 120.4; Magnesium 2.2 mg/dl (1.8-2.4); Potassium 4.4 mmol/L (3.5-5.1)
[2018-07-15 08:50] LABS: Phosphorus 3.2 mg/dl (2.5-4.9)
[2018-07-15] MEDS ORDERED: ARMOUR THYROID 30 MG TAB PO SCH (09:00)
[2018-07-15] MEDS ORDERED: DULOXETINE HCL 60 MG CAP PO SCH (09:00)
[2018-07-15 12:48] LABS: Hematocrit (blood only) 29.8 % (37-47); Hemoglobin 9.8 g/dL (12.0-16.0)
--- NOTE | 2018-07-15 14:17 | Family Medicine Progress Note ---
Date of Service July 15, 2018 Patricia Boyce states that she has some mild lower neck pain, cough and palpitations especially with activity. Denies syncope or bloody stools currently. States she has no hx of IV drug abuse. Admits to a history of anxiety. Review of Systems All systems reviewed & are unremarkable except as noted in HPI & below Physical Exam Vital Signs (Past 24 Hours): Last Vital Signs Temp 37.0 C 07/15/18 07:15 Pulse 118 H 07/15/18 07:15 Resp 18 07/15/18 07:15 BP 119/81 07/15/18 07:15 Pulse Ox 96 07/15/18 07:15 General: Alert, oriented. No acute distress HEENT: NC/AT, PERRLA, EOMI, oropharynx moist. Chest: Nontender to palpation. CV: RRR, Normal s1, s2. No murmurs appreciated Resp: Breath sounds clear bilaterally, no increased effort of breathing. No crackles/rhonchi/rales. Abdomen: BS+. Soft, nontender, nondistended. No guarding. No organomegaly appreciated. Extremities: No edema.
[2018-07-15 14:48] LABS: Appearance Urine Clear (Clear); Bilirubin Urine Negative (Negative); Blood Urine Negative (Negative); Color Urine Yellow; Glucose Urine UA Negative (Negative); Ketones Urine Trace (Negative); Leukocyte Esterase Urine Negative (Negative); Nitrite Urine Negative (Negative); Protein Urine Negative (Negative); Specific Gravity Urine 1.026 (1.000-1.030); Urobilinogen Urine Negative (Negative)
[2018-07-15 15:16] LABS: Amphetamines+Metham, Urine Neg (Neg); Barbiturates, Urine Neg (Neg); Benzodiazepine, Urine Neg (Neg); Cocaine, Urine Neg (Neg); MDMA (Ecstacy), Urine Neg (Neg); Methadone, Urine Neg (Neg); Opiate, Urine Neg (Neg); Phencyclidine, Urine Neg (Neg)
--- NOTE | 2018-07-15 17:00 | Discharge Summary ---
Date of Service July 15, 2018 Admission HPI Per Admitting Provider 38-year-old female with history of ulcerative colitis diagnosed a little over 1 year ago and followed by [facility] and hospitalized here in May for frequent loose and bloody bowel movements which was determined to be C. difficile colitis, treated with the appropriate antibiotics and loose stools have more or less resolved although patient has UC. She states she is having 2 loose nonbloody stools per day now. She states ever since then she her energy has never been the same and she has felt weak and has experienced dyspnea on exertion. 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 Endorses dyspnea on exertion, mid upper sternal chest pain worsening in this last week. Also endorses persistent headache, she is seen by a neurologist for this. ED course: Patient is normotensive, tachycardic pulse of 120, satting 98 on room air, afebrile. CBC shows leukocytosis white blood cell count 15, hemoglobin hematocrit 8.1/26.5, MCV 88.6. Platelet count elevated 758. D-dimer elevated 2110. Chemistry profile reveals mild hypokalemia potassium 3.0, creatinine 0.85. Normal calcium, magnesium 1.9, phosphorus 4.3. Troponin elevated at 0.125. Albumin 2.5. Lipase normal. HCG normal. Chest CTA shows no pulmonary embolism and lungs clear. Chest x-ray unremarkable. EKG shows T wave abnormalities in the lateral leads. No ST elevations. Given 2 L of NSS, 1000 mg Tylenol, 125 mg Solu-Medrol, Compazine. PMH: chronic migraines, ulcerative colitis, hypothyroidism, h/o c. diff colitis, anxiety. Social hx: works at [employer]. Denies tobacco or illicit drug use. 2 alcoholic drinks/month. 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 1 partner in last year, does not use condoms. Admission Exam Per Admitting Provider Vitals noted as above and within normal limits with the exception of tachycardia. GENERAL: Awake, alert to person, place, and time, nontoxic-appearing, in no distress. Pallor present. HENT: Normocephalic, atraumatic. . Mucus membranes appear moist. EYES: Normal conjunctiva. Sclera non-icteric. EOMI. NECK: Supple. Full range of motion. No JVD RESPIRATORY: Clear to auscultation. Normal work of breathing. CARDIAC: Regular rate, normal rhythm. Extremities warm and well perfused, 2+ radial pulses bilaterally; 2+ posterior tibialis pulses bilaterally. LOWER EXTREMITIES: Inspection of calves reveal equal size bilaterally. They are non-tender. No edema. No discoloration. NEURO: No focal gross focal motor deficits noted. Sensation in tact. CN II-XII grossly in tact. SKIN: Rash not present. No jaundice noted. Significant lesions include multiple tattoos. PSYCH: Appropriate mood and affect. Cooperative. Principal Diagnosis Anemia requiring transfusion Discharge Exam General: Alert, oriented. No acute distress HEENT: NC/AT, conjunctiva normal, PERRLA, EOMI, oropharynx moist. Chest: Nontender to palpation. CV: RRR, Normal s1, s2. Resp: Breath sounds clear bilaterally, no increased effort of breathing. Abdomen: Soft, nontender, nondistended. No guarding. No organomegaly appreciated. Extremities:Tattoos. No edema. No signs of bruising. Discharge Data Allergies Allergy/AdvReac Type Severity Reaction Status Date / Time Penicillins Allergy Unknown rash Verified 06/22/18 09:59 azithromycin [From Zithromax] Allergy Hives Verified 06/22/18 09:59 OTC COUGH MEDICINES Allergy Unknown hives Uncoded 06/22/18 09:59 Consultations 07/14/18 20:31 ED Decision to Admit Stat 07/14/18 23:51 Consult Case Management - Discharge Planning Routine Ordered Studies 07/14/18 17:48 CT angio chest PE protocol Stat Hospital Course (1) Elevated troponin: 38yo female with Hx of UC and c.diff colitis in May who presented with chest pain, elevated troponins and symptomatic anemia. EKG shows sinus tachycardia, CTA showed no evidence of PE and pt denies melena, hematochezia, or bloody emesis. Symptomatic Normocytic Anemia - likely from GI bleed due to ulcerative colitis -Baseline hemoglobin of 12.1 in May, 8.1 on admission and 9.3 after transfused 2 PRBC units. Recheck upon discharge of 9.8. Iron, ferritin, transferrin studies, pending on discharge. Sinus tachycardia on EKG Echo showed mild to moderate mitral regurgitation and tricuspid regurgitation. Denies IV drug use. Discharged with advice to avoid physical exertion until she can get in to see PCP. Upon discharge pt stated she felt better than presentation, and was ok with hospital following up with results. Advised to f/u with PCP in the next few days. blood cultures ordered - pending on discharge. Elevated Troponins Troponins elevated at 0.092 and 0.085. Monitored on telemetry. CTA negative for PE. ? sec to myocarditis. Cough -3 weeks duration. Monitored. Thrombocytosis, leukocytosis- likely reactive. Also recently finished steroid course. Hypothyroidism -Home meds were continued. -TSH within normal limits. UC -home mesalamine continued. Plan -Med telemetry -Trend troponins every 6h -Echo in the a.m., morning EKG -In light of significant anemia less than 8.5, symptoms and elevated troponin, will transfuse 2 units PRBCs. As below. FEN/GI: heart healthy diet. No fluids indicated at this time. will get 2 units PRBCs. DVT ppx: SCDs CODE STATUS: FULL DISPO: med/tele (2) Thrombocytosis: (3) Normocytic anemia: (4) Hypothyroidism: (5) Ulcerative (chronic) enterocolitis: (6) Cough: (7) Leukocytosis: (8) Anxiety: (9) Migraine: Total Time Total Time Spent Total Time Spent (In Minutes): 60 Discharge Plan Discharge Items Patient Disposition: Home - Self-Care Reason For Visit: ANEMIA WITH END ORGAN ISCHEMIA Discharge Diagnosis: Anemia requiring transfusion Discharge Goals: Decrease discomfort and Improve disease control Activity: Per 'Additional Instructions' section Activity Comment: Hold off on any exertion until evaluated by primary care physician Lifting: Wait until after follow-up appointment Exercise/Sports: Wait until after follow-up appointment Non-emergency contact: Primary Care Provider Call non-emergency contact if: your symptoms worsen, your pain is worsening and you have a fever Follow-up/Referrals: Nicol Spicer MD [Primary Care Provider] - Diet: Heart Healthy Addtl Provider Instructions: You were admitted to the hospital out of concern for your anemia that required a blood transfusion. Your heart enzymes were also slightly increased. This is likely due to your elevated heart rate. You were treated with 2 units of blood and EKGs and an echocardiogram of your heart were done. You seemed to feel better after the blood transfusion. Your EKG showed a fast heart rate & no evidence of a heart attack. A CT Scan of your lungs ruled out a pulmonary embolism causing your symptoms - this is good news. The echocardiogram showed mild to moderate tricuspid and mitral valve regurgitation. At the time of discharge in an attempt to determine the cause of your presenting symptoms, blood cultures ordered were still pending. If the blood cultures are positive someone from the hospital will notify you of this and advise you to seek medical care. Please followup with your Primary care provider in the next few days. Please avoid taking nonsteroidal antiinflammatory medications such as Advil or aspirin as these can predispose to gastrointestinal bleeding and further worsen your anemia. Should your symptoms return or worsen, please go to the nearest emergency room. Prescriptions: Continued clonazepam 0.5 mg tablet 0.5 mg PO Q6H PRN (Reason: Anxiety) RF: 0 albuterol sulfate 90 mcg/actuation HFA aerosol inhaler 1 - 2 puff Inhalation Q6H PRN (Reason: Wheezing or Cough) RF: 0 duloxetine 60 mg capsule,delayed release(DR/EC) 60 mg PO QAM RF: 0 mesalamine [Lialda] 1.2 gram tablet,delayed release (DR/EC) 4.8 g PO DAILY RF: 0 thyroid (pork) [[place] Thyroid] 90 mg tablet 90 mg PO DAILY RF: 0 acetaminophen 500 mg Tablet 1,000 mg PO Q6H PRN (Reason: Pain) RF: 0 almotriptan malate 12.5 mg Tablet 12.5 mg PO UD PRN (Reason: Migraine Headache) RF: 0 Discontinued ibuprofen [Advil] 200 mg Tablet 800 mg PO Q8H PRN (Reason: Pain) RF: 0 Stand-Alone Forms: [facility] Discharge Orders: Discharge Order (Routine); Ordered 07/15/18 Ordered By: Catherine Wong Admission Data Admit Date/Time: 07/14/18 22:39 Attending Provider: Sbuha Simpson Admit Provider: Candice Cabrera Primary Care Provider: Nicol Spicer Other Providers: Nicky Vazquez Service: Telemetry Other Interventions: Discharge Summary Assessment (RN) Last Done: 07/15/18 16:24 DC Date/Time DO NOT enter until pt leaves facility: 07/15/18 16:35 Supervising Physician Co-Signing Physician Notes Resident Physician Supervision Note: I independently interviewed and examined the patient and verified the beverly history and physical, reviewed labs and image studies, discussed the case with the resident Dr. Wong and agree with the findings and care plan. Time spent in discharge 40min
[2018-07-15] MEDS ORDERED: MAGNESIUM OXIDE 400 MG TAB PO ONE (21:45)
== END 2018-07-15 16:35 | disposition home or self-care (01) | DRG 387 ==
LOC: ED 15:49 → SUATTDRO 22:39 → 2N 22:39

== ENCOUNTER 2018-07-28 08:38 | Inpatient (IN) ==
[2018-07-28] MEDS ORDERED: ACETAMINOPHEN 1,000 MG/100 ML VIAL IV STA (09:21)
[2018-07-28] MEDS ORDERED: DiphenhydrAMINE HCL 50 MG/ML VIAL IV STA (09:21)
[2018-07-28] MEDS ORDERED: PROCHLORPERAZINE 2 ML IV ONE (09:21)
[2018-07-28] MEDS ORDERED: SODIUM CHLORIDE 0.9% 1000ML 1,000 ML IV SCH (09:30)
--- NOTE | 2018-07-28 09:46 | XRay Report ---
XR chest 1V portable CLINICAL HISTORY: Pt c/o chest pain COMPARISON STUDY: 07/14/2018 FINDINGS: The bones soft tissues and hemidiaphragms are normal. The cardiomediastinal silhouette is n ormal. The lungs are clear. The pulmonary vasculature is normal. IMPRESSION: Negative chest. The above report was generated using voice recognition software. It may contain grammatical, syntax or spelling errors. Electronically signed by: Dilan Olivier M.D. 07/28/2018 9:45 AM
[2018-07-28 09:47] LABS: Hematocrit (blood only) 28.7 % (37-47); Mean Corpuscular Hgb Conc 31.4 g/dL (32-36); Mean Platelet Volume 8.1 fL (7.4-10.4); Platelet Count 669 K/uL (130-400); RDW Coefficient of Variation 16.3 % (11.5-14.5); RDW Standard Deviation 52.3 fL (36.4-46.3); White Blood Count 14.25 K/uL (4.8-10.8)
[2018-07-28 09:55] LABS: iSTAT Creatinine 0.6 mg/dl (0.6-1.3); iSTAT Hemoglobin 8.8 g/dl (12.0-16.0); iSTAT Ionized Calcium 1.18 mmol/l (1.12-1.32); iSTAT Potassium 3.6 mEq/L (3.3-5.0)
[2018-07-28 09:58] LABS: Partial Thromboplastin Ratio 1.1; Partial Thromboplastin Time 30.9 Seconds (21.0-31.0); Prothrombin Time 10.3 Seconds (9.0-12.0)
[2018-07-28 10:04] LABS: Albumin Level 2.5 gm/dl (3.4-5.0); BUN Creatinine Ratio 21.6 (10-20); Calcium 9.6 mg/dl (8.5-10.1); Creatinine Clr Calc Pharmacy 89.7 ml/min; Est GFR (African American) 128.3; Est GFR (Non-African American) 110.7; Potassium 3.6 mmol/L (3.5-5.1)
[2018-07-28 10:12] LABS: Basophils # (auto) 0.03 K/uL (0-0.2); Basophils % (auto) 0.2 %; Eosinophils # (auto) 0.27 K/uL (0-0.5); Eosinophils % (auto) 1.9 %; Hypochromasia Present; Immature Granulocytes # (auto) 0.05 K/uL (0.00-0.02); Immature Granulocytes % (auto) 0.4 %; Lymphocytes # (auto) 2.98 K/uL (1.2-3.4); Lymphocytes % (auto) 20.9 %; Monocytes # (auto) 1.84 K/uL (0.11-0.59); Monocytes % (auto) 12.9 %; Neutrophils # (auto) 9.08 K/uL (1.4-6.5); Neutrophils % (auto) 63.7 %; Polychromasia 1+
[2018-07-28 10:14] LABS: Albumin Globulin Ratio 0.5 (0.9-2); Bilirubin,Total 0.2 mg/dl (0.2-1); Globulin 5.3 gm/dl (2.5-4.0); Total Protein 7.8 gm/dl (6.4-8.2); Troponin I 0.084 ng/ml (0-0.045)
[2018-07-28 10:30] LABS: Pregnancy Test, Serum Negative (Negative)
--- NOTE | 2018-07-28 11:58 | Gastrointestinal Consultation ---
Date of Consultation July 28, 2018 Assessment & Plan (1) History of Clostridium difficile infection: (2) Anemia: (3) Rectal bleeding: (4) Ulcerative colitis: Pt is a 38 y/o currently going to be admitted for symtomatic anemia. She has hx of Ulcerative colitis dx by [facility] over a year ago via colonoscopy after symptoms of rectal bleeding. She also has hx of Cdiff infection back in May. She does have rectal bleeding though not increased from baseline. Mild abd pain relieved after defecating, no n/v. She had been on Excedrin however for migraine headaches. - Agree w blood transfusion, monitor H/H - Check ESR, CRP - Check Cdiff and stool cx. - Will defer repeat CT imaging at this time unless she develops abd pain. - CL diet ok today, NPO after midnight. Plan for EGD eval tomorrow to r/o PUD, UGI bleed given Excedrin use. Will also plan for repeat colonoscopy to eval for LGIB areas. Will plan also for repeat colonic bx as though dx with Ulcerative colitis, there was a suggestion of possible Crohn's disease in her last colonoscopy path report (cecaum typhlitis, w cryptitis and crypt abscess). - Noted elevated Troponin still w new Twave inversion on EKG. Will obtain Cardiology consult for EGD/Colonoscopy clearance and evaluation. - Will continue to follow along. Supervising Physician Co-Signing Physician Notes I performed a history and physical examination of the patient, including spec ifically on physical exam - soft, nontender abdomen. I have discussed the patient's management with Yolie. Please refer to the nurse practitioner's note for the documented findings and plan of care. 38 F with UC presenting with abdominal pain and rectal bleeding, recent use of NSAIDs and Hx of CDI. Plan: EGD and colonoscopy tomorrow Cardiology eval for EKG changes IV Hydration Stool for C.diff ESR, CRP Continue Mesalamine Decision about steroids based on scope tomorrow History of Present Illness Reason for Consultation: Symptomatic anemia, hx of U.C. Requesting Physician: Dr. Nicky Vazquez Attending Physician: Dr. Laury Chanel History of Present Illness Pt is a 38 y/o female w hx of Ulcerative Colitis, Cdiff (05/2018) who presented to ED w HAs and fatigue, weakness which had been progressively worse. She was just recently admitted 2 week's ago w similar symptoms, found to be anemic w Hgb around 8 and treated w 2U PRBC transfusion. It was noted at that time too that her Troponin was up but trending down. Upon eval today, she is afebrile, BP stable, HR in 100s. Labs notable for leukocytosis WBC 14. H/H 01/28. PT/INR, CMP unremarkable. Troponin still elevated at 0.084 and on EKG, new inverted Twaves are present. Pt reports BM now 1-3x a day, semi formed stools. She does notice rectal bleeding but not increased in quantity since diagnosed with U.C by [facility] over a year ago. She did have severe diarrhea during her Cdiff infection back in May but now stools are forming up. She denies any fever, chills, SOB, CP. + mild tenesmus but usually relieved after passing BM. Denies any leg edema. She remained on Lialda 4.8g daily for her U.C. Last steroid use for URI months ago. She denies any more antibx exposure after her Cdiff episode. She does mention taking Excedrin every 2 hours recently for her migraine headaches. No n/v, epigastric pain. She denies ETOH, tobacco, marijuana or other illicit drugs. Allergies Allergy/AdvReac Type Severity Reaction Status Date / Time Penicillins Allergy Unknown rash Verified 07/28/18 09:46 azithromycin [From Zithromax] Allergy Hives Verified 07/28/18 09:46 OTC COUGH MEDICINES Allergy Unknown hives Uncoded 07/28/18 09:46 Home Medications Home Medications Medication Instructions Recorded Confirmed Type almotriptan malate 12.5 mg PO UD PRN 05/23/18 07/28/18 History acetaminophen 500 mg PO Q6H PRN 07/14/18 07/28/18 History albuterol sulfate 1 - 2 puff INHALATION Q6H PRN 07/14/18 07/28/18 History clonazepam 0.5 mg PO Q6H PRN 07/14/18 07/28/18 History duloxetine 60 mg PO QAM 07/14/18 07/28/18 History mesalamine [Lialda] 4.8 g PO HS 07/14/18 07/28/18 History thyroid (pork) [[place] Thyroid] 90 mg PO DAILY 07/14/18 07/28/18 History gftqums-cncassjoqypwa-srmquzkw 1 tab PO Q6H PRN 07/28/18 07/28/18 History [Excedrin Extra Strength] benzonatate 100 mg PO TID PRN 07/28/18 07/28/18 History dicyclomine 10 mg PO TID 07/28/18 07/28/18 History verapamil 120 mg PO QAM 07/28/18 07/28/18 History Patient History Medical History Anxiety (Chronic) Hypothyroid (Chronic) Migraines (Chronic) Ulcerative colitis (Chronic) H/O lipoma Sacroiliitis Surgical History H/O rotator cuff surgery bilateral Family History Mother Hypothyroid Paget disease of bone Father Hypothyroid Hypertension Aunt Ulcerative colitis Brother Crohn's disease Sister Graves disease Social History Preferred Language: Kitt[place] Communication Ability: Effective Marketing Clerk Required: No Beliefs That Will Affect Care: None marital status: marital status details: no kids; currently in relationship Current Living Situation: Spouse current occupational status: employed 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 Physical Exam Vital Signs (Past 24 Hours): Last Vital Signs Temp 37 C 07/28/18 08:43 Pulse 102 H 07/28/18 11:15 Resp 15 07/28/18 11:15 BP 127/86 07/28/18 11:00 Pulse Ox 98 07/28/18 11:15 Constitutional: WD/WN, vitals as above well groomed, cooperative and comfortable Eyes: PERRL, conjunctivae normal, anicteric sclerae ENMT: external ear and nose normal, oropharynx normal Respiratory: normal respiratory effort, lungs clear to auscultation Cardiovascular: RRR, no murmur, no edema Gastrointestinal (Abdomen): normal bowel sounds, soft, nontender, no hepatosplenomegaly Skin: no rashes, warm and dry no jaundice Neurologic: Motor/Sensory: no asterixis Psychiatric: A+Ox3, euthymic affect Lymphatic: no lymphedema (1) Anemia Anemia type: unspecified type Qualified Code(s): D64.9 - Anemia, unspecified
--- NOTE | 2018-07-28 12:22 | History & Physical Report ---
Date of Service July 28, 2018 Assessment & Plan (1) Anemia: Patient with normochromic/normocytic anemia, Hg of 9, Hct of 28.7. Symptoms of FALL, fatigue, dizziness. Prior workup of anemia reveals low Fe of 11, Ferritin normal at 54, TIBC low at 213. Anemia of chronic disease, possible iron deficiency as well -Transfuse 1u PRBCs -Monitor CBC -Patient to have EGD and [place] tomorrow with GI. Has been taking frequent excedrine (2) Abnormal EKG: Appreciate cardiology consultation. Possibly secondary to demand ischemia in setting of anemia. -Transfusion as above -Trend cardiac enzymes -Check Echo (3) Elevated troponin: As above. -Trend troponin -Appreciate cardiology input (4) History of Clostridium difficile infection: Repeat C. diff studies and stool cultures (5) Ulcerative colitis: Continue home medications Check ESR and CRP EGD and colo per GI F/E/N - Heplock. Monitor electrolytes and replete as needed. Clear liquids as tolerated Ppx - SCDs Code - FULL Dispo - 251-1 History of Present Illness Chief Complaint: SOB Primary Care Provider: Stephie Perez MD 38yo C female with history of recently diagnosed UC on Mesalamine, C. diff colitis in May 2018 s/p treatment with resolution of symptoms. Patient was admitted 2 weeks ago with complaints of weakness/fatigue/FALL. She was found to be anemic at that time with Hg of 8.1, Hct of 26.5. Also with mildly elevated troponin. She was transfused with 2u PRBC and discharged home on 07/15/18. She reports feeling well for 2-3 days after returning home. However, she presents today with similar symptoms of dizziness, lightheadedness, nausea/vomiting, lethargy. Also with headache which she has been taking Excedrin for q 2 hours. She is no longer having diarrhea. Her stools are soft, 1-3 per day. She reports some mild rectal bleeding. She has some abdominal pain preceding bowel movement that is usually relieved with BM. Also wtih BMs at night. ER Course: Tylenol, Benadryl, Phenergan, NSS Allergies Allergy/AdvReac Type Severity Reaction Status Date / Time Penicillins Allergy Unknown rash Verified 07/28/18 09:46 azithromycin [From Zithromax] Allergy Hives Verified 07/28/18 09:46 OTC COUGH MEDICINES Allergy Unknown hives Uncoded 07/28/18 09:46 Home Medications Home Medications Medication Instructions Recorded Confirmed Type almotriptan malate 12.5 mg PO UD PRN 05/23/18 07/28/18 History acetaminophen 500 mg PO Q6H PRN 07/14/18 07/28/18 History albuterol sulfate 1 - 2 puff INHALATION Q6H PRN 07/14/18 07/28/18 History clonazepam 0.5 mg PO Q6H PRN 07/14/18 07/28/18 History duloxetine 60 mg PO QAM 07/14/18 07/28/18 History mesalamine [Lialda] 4.8 g PO HS 07/14/18 07/28/18 History thyroid (pork) [Dilliner Thyroid] 90 mg PO DAILY 07/14/18 07/28/18 History jxbvnkj-onxwdetlktnhh-velktcly 1 tab PO Q6H PRN 07/28/18 07/28/18 History [Excedrin Extra Strength] benzonatate 100 mg PO TID PRN 07/28/18 07/28/18 History dicyclomine 10 mg PO TID 07/28/18 07/28/18 History verapamil 120 mg PO QAM 07/28/18 07/28/18 History Past Med/Surg History Medical History Anxiety (Chronic) Hypothyroid (Chronic) Migraines (Chronic) Ulcerative colitis (Chronic) H/O lipoma Sacroiliitis Surgical History H/O rotator cuff surgery bilateral Family History Mother Hypothyroid Paget disease of bone Father Hypothyroid Hypertension Aunt Ulcerative colitis Brother Crohn's disease Sister Graves disease Social History Preferred Language: [place] Communication Ability: Effective 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 Beliefs That Will Affect Care: None marital status: marital status details: no kids; currently in relationship Current Living Situation: Spouse current occupational status: employed 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 [employer] Other Information That Helps Us Care for You: No Feels Safe at Home: Yes Safety Concerns: Feels Safe At This Time Smoking Status: Never smoker Hx Alcohol Use: Yes Hx Substance Use: No Review of Systems + dry cough + chest pain with cough + sweats Physical Exam Vital Signs (Past 24 Hours): Last Vital Signs Temp 37 C 07/28/18 08:43 Pulse 100 H 07/28/18 12:00 Resp 18 07/28/18 12:00 BP 125/79 07/28/18 12:00 Pulse Ox 96 07/28/18 12:00 Physical Exam: General: patient resting comfortably, NAD, non-toxic in appearance, AA&O x 4 Skin: warm, dry, intact, no rashes or lesions HEENT: NC/AT, PERRL, EOMI, anicteric sclera, conjunctiva without injection, external ear normal to inspection and nontender, nares patent, moist mucus memb ranes, dentition intact, no oropharyngeal lesions, neck supple, trachea midline, no LAD, no thyromegaly, no JVD Heart: +S1/S2, regular, no m/r/g Lungs: equal air entry bilaterally, no rales/rhonchi/wheezes Abd: +BS, soft, NT/ND, no masses/organomegaly/ascites Ext: warm, 2+ pulses in UE/LE bilaterally, no clubbing/cyanosis or edema Neuro: nonfocal, patient AA&O x 4, speech intact, no facial droop, moving all extremities on command with equal strength 5/5 Results & Data Laboratory Results Lab Results 07/28/18 07/28/18 07/28/18 Range/Units 09:20 09:30 09:30 WBC 14.25 H (4.8-10.8) K/uL RBC 3.30 L (4.2-5.4) M/uL Hgb 9.0 L (12.0-16.0) g/dL POC Hgb (12.0-16.0) g/dl Hct 28.7 L (37-47) % POC Hct (37-47) % MCV 87.0 (80-100) fL MCH 27.3 (25-34) pg MCHC 31.4 L (32-36) g/dL RDW Std Deviation 52.3 H (36.4-46.3) fL RDW Coeff of Elayne 16.3 H (11.5-14.5) % Plt Count 669 H (130-400) K/uL MPV 8.1 (7.4-10.4) fL Immature Gran % (Auto) 0.4 % Neut % (Auto) 63.7 % Lymph % (Auto) 20.9 % Lee % (Auto) 12.9 % Eos % (Auto) 1.9 % Baso % (Auto) 0.2 % Immature Gran # (Auto) 0.05 H (0.00-0.02) K/uL Neut # (Auto) 9.08 H (1.4-6.5) K/uL Lymph # (Auto) 2.98 (1.2-3.4) K/uL Lee # (Auto) 1.84 H (0.11-0.59) K/uL Eos # (Auto) 0.27 (0-0.5) K/uL Baso # (Auto) 0.03 (0-0.2) K/uL Polychromasia 1+ Hypochromasia Present ESR 83 H (0-21) mm/hr PT 10.3 (9.0-12.0) Seconds INR 1.0 (0.9-1.1) APTT 30.9 (21.0-31.0) Seconds PTT Ratio 1.1 POC Sodium (135-144) mEq/L Sodium (136-145) mmol/L POC Potassium (3.3-5.0) mEq/L Potassium (3.5-5.1) mmol/L POC Chloride (101-112) mEq/L Chloride (98-107) mmol/L Carbon Dioxide (21-32) mmol/L POC Total CO2 (24-31) mEq/l Anion Gap (3-11) POC Anion Gap (16-25) mmol/L POC BUN (7-18) mg/dl BUN (7-18) mg/dl Creatinine (0.6-1.2) mg/dl POC Creatinine (0.6-1.3) mg/dl Est Cr Clr Drug Dosing ml/min Est GFR ( Amer) Est GFR (Non-Af Amer) BUN/Creatinine Ratio (10-20) Glucose (70-99) mg/dl POC Glucose (other) (70-99) mg/dl Calcium (8.5-10.1) mg/dl POC Ioniz Calcium Obie (1.12-1.32) mmol/l Phosphorus (2.5-4.9) mg/dl Magnesium (1.8-2.4) mg/dl Total Bilirubin (0.2-1) mg/dl AST (15-37) U/L ALT (12-78) U/L Alkaline Phosphatase (45-117) U/L Troponin I (0-0.045) ng/ml C-Reactive Protein (0-0.29) mg/dl Total Protein (6.4-8.2) gm/dl Albumin (3.4-5.0) gm/dl Globulin (2.5-4.0) gm/dl Albumin/Globulin Ratio (0.9-2) HCG, Qual (Negative) Stool Occult Bld Scrn (Negative) Blood Type Antibody Screen Crossmatch 07/28/18 07/28/18 07/28/18 Range/Units 09:30 09:30 09:30 WBC (4.8-10.8) K/uL RBC (4.2-5.4) M/uL Hgb (12.0-16.0) g/dL POC Hgb (12.0-16.0) g/dl Hct (37-47) % POC Hct (37-47) % MCV (80-100) fL MCH (25-34) pg MCHC (32-36) g/dL RDW Std Deviation (36.4-46.3) fL RDW Coeff of Elayne (11.5-14.5) % Plt Count (130-400) K/uL MPV (7.4-10.4) fL Immature Gran % (Auto) % Neut % (Auto) % Lymph % (Auto) % Lee % (Auto) % Eos % (Auto) % Baso % (Auto) % Immature Gran # (Auto) (0.00-0.02) K/uL Neut # (Auto) (1.4-6.5) K/uL Lymph # (Auto) (1.2-3.4) K/uL Lee # (Auto) (0.11-0.59) K/uL Eos # (Auto) (0-0.5) K/uL Baso # (Auto) (0-0.2) K/uL Polychromasia Hypochromasia ESR (0-21) mm/hr PT (9.0-12.0) Seconds INR (0.9-1.1) APTT (21.0-31.0) Seconds PTT Ratio POC Sodium (135-144) mEq/L Sodium 141 (136-145) mmol/L POC Potassium (3.3-5.0) mEq/L Potassium 3.6 (3.5-5.1) mmol/L POC Chloride (101-112) mEq/L Chloride 107 (98-107) mmol/L Carbon Dioxide 27 (21-32) mmol/L POC Total CO2 (24-31) mEq/l Anion Gap 7.0 (3-11) POC Anion Gap (16-25) mmol/L POC BUN (7-18) mg/dl BUN 15 (7-18) mg/dl Creatinine 0.67 (0.6-1.2) mg/dl POC Creatinine (0.6-1.3) mg/dl Est Cr Clr Drug Dosing 89.7 ml/min Est GFR ( Amer) 128.3 Est GFR (Non-Af Amer) 110.7 BUN/Creatinine Ratio 21.6 H (10-20) Glucose 102 H (70-99) mg/dl POC Glucose (other) (70-99) mg/dl Calcium 9.6 (8.5-10.1) mg/dl POC Ioniz Calcium Obie (1.12-1.32) mmol/l Phosphorus (2.5-4.9) mg/dl Magnesium (1.8-2.4) mg/dl Total Bilirubin 0.2 (0.2-1) mg/dl AST 8 L (15-37) U/L ALT 16 (12-78) U/L Alkaline Phosphatase 91 (45-117) U/L Troponin I 0.084 H* (0-0.045) ng/ml C-Reactive Protein 14.50 H (0-0.29) mg/dl Total Protein 7.8 (6.4-8.2) gm/dl Albumin 2.5 L (3.4-5.0) gm/dl Globulin 5.3 H (2.5-4.0) gm/dl Albumin/Globulin Ratio 0.5 L (0.9-2) HCG, Qual Negative (Negative) Stool Occult Bld Scrn (Negative) Blood Type Antibody Screen Crossmatch 07/28/18 07/28/18 07/28/18 Range/Units 09:33 09:42 14:38 WBC (4.8-10.8) K/uL RBC (4.2-5.4) M/uL Hgb (12.0-16.0) g/dL POC Hgb 8.8 L (12.0-16.0) g/dl Hct (37-47) % POC Hct 26 L (37-47) % MCV (80-100) fL MCH (25-34) pg MCHC (32-36) g/dL RDW Std Deviation (36.4-46.3) fL RDW Coeff of Elayne (11.5-14.5) % Plt Count (130-400) K/uL MPV (7.4-10.4) fL Immature Gran % (Auto) % Neut % (Auto) % Lymph % (Auto) % Lee % (Auto) % Eos % (Auto) % Baso % (Auto) % Immature Gran # (Auto) (0.00-0.02) K/uL Neut # (Auto) (1.4-6.5) K/uL Lymph # (Auto) (1.2-3.4) K/uL Lee # (Auto) (0.11-0.59) K/uL Eos # (Auto) (0-0.5) K/uL Baso # (Auto) (0-0.2) K/uL Polychromasia Hypochromasia ESR (0-21) mm/hr PT (9.0-12.0) Seconds INR (0.9-1.1) APTT (21.0-31.0) Seconds PTT Ratio POC Sodium 139 (135-144) mEq/L Sodium (136-145) mmol/L POC Potassium 3.6 (3.3-5.0) mEq/L Potassium (3.5-5.1) mmol/L POC Chloride 104 (101-112) mEq/L Chloride (98-107) mmol/L Carbon Dioxide (21-32) mmol/L POC Total CO2 25 (24-31) mEq/l Anion Gap (3-11) POC Anion Gap 15.0 L (16-25) mmol/L POC BUN 14 (7-18) mg/dl BUN (7-18) mg/dl Creatinine (0.6-1.2) mg/dl POC Creatinine 0.6 (0.6-1.3) mg/dl Est Cr Clr Drug Dosing ml/min Est GFR ( Amer) Est GFR (Non-Af Amer) BUN/Creatinine Ratio (10-20) Glucose (70-99) mg/dl POC Glucose (other) 107 H (70-99) mg/dl Calcium (8.5-10.1) mg/dl POC Ioniz Calcium Obie 1.18 (1.12-1.32) mmol/l Phosphorus 3.5 (2.5-4.9) mg/dl Magnesium 1.9 (1.8-2.4) mg/dl Total Bilirubin (0.2-1) mg/dl AST (15-37) U/L ALT (12-78) U/L Alkaline Phosphatase (45-117) U/L Troponin I 0.086 H* (0-0.045) ng/ml C-Reactive Protein (0-0.29) mg/dl Total Protein (6.4-8.2) gm/dl Albumin (3.4-5.0) gm/dl Globulin (2.5-4.0) gm/dl Albumin/Globulin Ratio (0.9-2) HCG, Qual (Negative) Stool Occult Bld Scrn (Negative) Blood Type O Positive Antibody Screen NEGATIVE Crossmatch See Detail 07/28/18 Range/Units 20:06 WBC (4.8-10.8) K/uL RBC (4.2-5.4) M/uL Hgb (12.0-16.0) g/dL POC Hgb (12.0-16.0) g/dl Hct (37-47) % POC Hct (37-47) % MCV (80-100) fL MCH (25-34) pg MCHC (32-36) g/dL RDW Std Deviation (36.4-46.3) fL RDW Coeff of Elayne (11.5-14.5) % Plt Count (130-400) K/uL MPV (7.4-10.4) fL Immature Gran % (Auto) % Neut % (Auto) % Lymph % (Auto) % Lee % (Auto) % Eos % (Auto) % Baso % (Auto) % Immature Gran # (Auto) (0.00-0.02) K/uL Neut # (Auto) (1.4-6.5) K/uL Lymph # (Auto) (1.2-3.4) K/uL Lee # (Auto) (0.11-0.59) K/uL Eos # (Auto) (0-0.5) K/uL Baso # (Auto) (0-0.2) K/uL Polychromasia Hypochromasia ESR (0-21) mm/hr PT (9.0-12.0) Seconds INR (0.9-1.1) APTT (21.0-31.0) Seconds PTT Ratio POC Sodium (135-144) mEq/L Sodium (136-145) mmol/L POC Potassium (3.3-5.0) mEq/L Potassium (3.5-5.1) mmol/L POC Chloride (101-112) mEq/L Chloride (98-107) mmol/L Carbon Dioxide (21-32) mmol/L POC Total CO2 (24-31) mEq/l Anion Gap (3-11) POC Anion Gap (16-25) mmol/L POC BUN (7-18) mg/dl BUN (7-18) mg/dl Creatinine (0.6-1.2) mg/dl POC Creatinine (0.6-1.3) mg/dl Est Cr Clr Drug Dosing ml/min Est GFR ( Amer) Est GFR (Non-Af Amer) BUN/Creatinine Ratio (10-20) Glucose (70-99) mg/dl POC Glucose (other) (70-99) mg/dl Calcium (8.5-10.1) mg/dl POC Ioniz Calcium Obie (1.12-1.32) mmol/l Phosphorus (2.5-4.9) mg/dl Magnesium (1.8-2.4) mg/dl Total Bilirubin (0.2-1) mg/dl AST (15-37) U/L ALT (12-78) U/L Alkaline Phosphatase (45-117) U/L Troponin I (0-0.045) ng/ml C-Reactive Protein (0-0.29) mg/dl Total Protein (6.4-8.2) gm/dl Albumin (3.4-5.0) gm/dl Globulin (2.5-4.0) gm/dl Albumin/Globulin Ratio (0.9-2) HCG, Qual (Negative) Stool Occult Bld Scrn Negative (Negative) Blood Type Antibody Screen Crossmatch Diagnostic Findings XR chest 1V portable CLINICAL HISTORY: Pt c/o chest pain COMPARISON STUDY: 07/14/2018 FINDINGS: The bones soft tissues and hemidiaphragms are normal. The cardiomediastinal silhouette is normal. The lungs are clear. The pulmonary vasculature is normal. IMPRESSION: Negative chest. The above report was generated using voice recognition software. It may contain grammatical, syntax or spelling errors. Electronically signed by: Dilan Olivier M.D. 07/28/2018 9:45 AM Dictated: 07/28/18941 Transcribed: 07/28/18941 ECG Additional Comments: NSR at 92, TWI in anterior leads Code Status & VTE Plan Code Status Full (1) Anemia Anemia type: unspecified type Qualified Code(s): D64.9 - Anemia, unspecified
--- NOTE | 2018-07-28 13:42 | Emergency Department Note ---
Entered by Judy Crews acting as a scribe for Miguel Rachel MD History of Present Illness General Chief complaint: Shortness of Breath/Dyspnea Stated complaint: ACUTE ANEMIA, CLARK, SOB, VOMITING, HEART PALP. Time Seen by Provider: 07/28/18 09:10 Source: patient History of Present Illness Provider complaint: vomiting Onset (ago): hour(s) (this morning) Location: left and right Maximum Pain Intensity: 7 Quality: + other (vomiting) Associated symptoms: + chest pain, + cough, + headaches, + shortness of breath and + other (palpitations) The patient is a 38 year old female who presents to the Emergency Room with complaints of vomiting this morning. She states that there was not blood in the vomit. She rates her pain at a 7/10. The patient states that 1 year ago she was diagnosed with ulcerative colitis and had C. Diff in May. The patient also reports that she was here 2-3 weeks ago with acute anemia and was given 2 blood transfusions. She states that she had blood work done at her PCP's and states that her hemoglobin is trending downward. She states that she has also had chest pain, palpitations, a cough, headaches, and shortness of breath. She states that her chest pain is exacerbated when she takes a deep breath. The patient states that she has had a colonoscopy before. Home Medications Home Medications Medication Instructions Recorded Confirmed Type almotriptan malate 12.5 mg PO UD PRN 05/23/18 07/28/18 History acetaminophen 500 mg PO Q6H PRN 07/14/18 07/28/18 History albuterol sulfate 1 - 2 puff INHALATION Q6H PRN 07/14/18 07/28/18 History clonazepam 0.5 mg PO Q6H PRN 07/14/18 07/28/18 History duloxetine 60 mg PO QAM 07/14/18 07/28/18 History mesalamine [Lialda] 4.8 g PO HS 07/14/18 07/28/18 History thyroid (pork) [Clifton Thyroid] 90 mg PO DAILY 07/14/18 07/28/18 History kyqdivn-sovmotfmpkzgb-losdmdqs 1 tab PO Q6H PRN 07/28/18 07/28/18 History [Excedrin Extra Strength] benzonatate 100 mg PO TID PRN 07/28/18 07/28/18 History dicyclomine 10 mg PO TID 07/28/18 07/28/18 History verapamil 120 mg PO QAM 07/28/18 07/28/18 History Allergies Allergy/AdvReac Type Severity Reaction Status Date / Time Penicillins Allergy Unknown rash Verified 07/28/18 09:46 azithromycin [From Zithromax] Allergy Hives Verified 07/28/18 09:46 OTC COUGH MEDICINES Allergy Unknown hives Uncoded 07/28/18 09:46 Past Med/Surg History Medical History Anxiety (Chronic) Hypothyroid (Chronic) Migraines (Chronic) Ulcerative colitis (Chronic) H/O lipoma Sacroiliitis Surgical History H/O rotator cuff surgery bilateral Family History Mother Hypothyroid Paget disease of bone Father Hypothyroid Hypertension Aunt Ulcerative colitis Brother Crohn's disease Sister Graves disease Social History Preferred Language: Yakut Communication Ability: Effective Harness Tier Required: No Beliefs That Will Affect Care: None marital status: marital status details: no kids; currently in relationship Current Living Situation: Spouse current occupational status: employed 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 and A total of 10 systems reviewed and were otherwise negative Physical Exam Vital Signs Vital Signs - 24 hr 07/28/18 08:43 07/28/18 08:49 07/28/18 09:00 Temperature 37 C Temperature Source Oral Sepsis Recent Fever Within 48 Hours No Sepsis Action Taken by Nursing No Action Required Pulse Rate 109 H Pulse Rate [Apical] Pulse Rate from SpO2 Sensor Pulse Rhythm Regular Pulse Strength Normal Respiratory Rate 20 Respiratory Effort / Characteristics Non-Labored Spontaneous Respiratory Depth Normal Respiratory Pattern Regular Blood Pressure 151/84 H Blood Pressure [Left Arm] Blood Pressure Mean 106 Blood Pressure Mean [Left Arm] Blood Pressure Position Sitting Pulse Oximetry 99 95 95 Oxygen Delivery Method Room Air Room Air Room Air 07/28/18 09:47 07/28/18 10:00 07/28/18 10:30 Temperature Temperature Source Sepsis Recent Fever Within 48 Hours Sepsis Action Taken by Nursing Pulse Rate 105 H 98 H Pulse Rate [Apical] 94 H Pulse Rate from SpO2 Sensor 105 H 99 H Pulse Rhythm Pulse Strength Respiratory Rate 18 15 17 Respiratory Effort / Characteristics Respiratory Depth Normal Respiratory Pattern Blood Pressure 133/94 128/87 Blood Pressure [Left Arm] 126/79 Blood Pressure Mean 107 100 Blood Pressure Mean [Left Arm] 94 Blood Pressure Position Pulse Oximetry 98 97 98 Oxygen Delivery Method Room Air 07/28/18 11:00 07/28/18 11:15 07/28/18 11:30 Temperature Temperature Source Sepsis Recent Fever Within 48 Hours Sepsis Action Taken by Nursing Pulse Rate 99 H 102 H 103 H Pulse Rate [Apical] Pulse Rate from SpO2 Sensor 100 H 101 H 103 H Pulse Rhythm Pulse Strength Respiratory Rate 16 15 22 Respiratory Effort / Characteristics Respiratory Depth Respiratory Pattern Blood Pressure 127/86 125/82 Blood Pressure [Left Arm] Blood Pressure Mean 99 96 Blood Pressure Mean [Left Arm] Blood Pressure Position Pulse Oximetry 97 98 98 Oxygen Delivery Method 07/28/18 12:00 07/28/18 12:30 Temperature Temperature Source Sepsis Recent Fever Within 48 Hours Sepsis Action Taken by Nursing Pulse Rate 100 H 102 H Pulse Rate [Apical] Pulse Rate from SpO2 Sensor 101 H 101 H Pulse Rhythm Pulse Strength Respiratory Rate 18 19 Respiratory Effort / Characteristics Respiratory Depth Respiratory Pattern Blood Pressure 125/79 126/82 Blood Pressure [Left Arm] Blood Pressure Mean 94 96 Blood Pressure Mean [Left Arm] Blood Pressure Position Pulse Oximetry 96 96 Oxygen Delivery Method GENERAL: Awake, alert, well-appearing, in no distress HENT: Normocephalic, atraumatic. Oropharynx unremarkable. EYES: Normal conjunctiva. Sclera non-icteric. NECK: Supple. No nuchal rigidity. FROM. No masses. RESPIRATORY: Clear to auscultation. No wheezes. No rales. Normal respiratory effort. CARDIAC: Normal rate. Normal rhythm. No murmurs. No rubs. Extremities warm and well perfused. Pulses equal. No JVD. GI: Soft, non-distended. No tenderness to palpation. No rebound or guarding. No masses. RECTAL: Deferred. MUSCULOSKELETAL: Atraumatic. Chest examination reveals no tenderness. The back is symmetrical on inspection without obvious abnormality. There is no CVA tenderness to palpation. No joint edema. LOWER EXTREMITIES: Calves are equal size bilaterally and non-tender. No edema. No discoloration. NEURO: Normal sensorium. No sensory or motor deficits noted. Course 0912: Past medical records reviewed. The patient was evaluated in room C10, and a complete history and physical examination were performed. 1013: I discussed the patient's case with Radha WU PA-C who will come evaluate the patient. 1019: I discussed the patient's case with Dr. Walker Neves who will evaluate the patient for further management. 1025: I updated the patient who verbalized agreement and understanding of the treatment plan. Consultations Consultation #1: Radha WU PA-C Time: 10:13 Consultation #2: Dr. Walker Neves Time: 10:19 Administered Medications Sodium Chloride (Nss 1000ml) 1,000 mls @ 100 mls/hr IV .Q10H MARILU Stop: 07/28/18 19:29 Last Admin: 07/28/18 09:49 Dose: 100 mls/hr Documented by: [id number] Discontinued Medications Diphenhydramine HCl (Benadryl) 50 mg IV NOW STA Stop: 07/28/18 09:22 Last Admin: 07/28/18 09:49 Dose: 50 mg Documented by: [id number] Acetaminophen (Ofirmev) 1,000 mg in 100 mls @ 400 mls/hr IV NOW STA Stop: 07/28/18 09:35 Last Infusion: 07/28/18 10:10 Dose: 0 mls/hr Documented by: [id number] Admin: 07/28/18 09:49 Dose: 400 mls/hr Documented by: [id number] Prochlorperazine (Compazine) 2 mls @ 1 mls/min IV ONE ONE Stop: 07/28/18 09:22 Last Admin: 07/28/18 09:49 Dose: 1 mls/min Documented by: [id number] Medical Decision Making Differential Diagnosis Differential diagnosis: Etiologies such as infections, reactive airway disease, COPD, pneumonia, pleural effusion, pulmonary edema, ARDS, pneumothorax, CHF, cardiac ischemia, cardiac tamponade, dysrhythmia, anemia, pulmonary embolism, musculoskeletal, gastrointestinal process, as well as others were entertained. Medical Records Attestation: I reviewed the patient's medical records. Home Medications Current Medication List: was personally reviewed by me Laboratory Data Attestation: I reviewed the patient's lab results. Result diagrams: 07/28/18 09:30 07/28/18 09:30 Lab Results 07/28/18 07/28/18 07/28/18 Range/Units 09:20 09:30 09:30 WBC 14.25 H (4.8-10.8) K/uL RBC 3.30 L (4.2-5.4) M/uL Hgb 9.0 L (12.0-16.0) g/dL POC Hgb (12.0-16.0) g/dl Hct 28.7 L (37-47) % POC Hct (37-47) % MCV 87.0 (80-100) fL MCH 27.3 (25-34) pg MCHC 31.4 L (32-36) g/dL RDW Std Deviation 52.3 H (36.4-46.3) fL RDW Coeff of Elayne 16.3 H (11.5-14.5) % Plt Count 669 H (130-400) K/uL MPV 8.1 (7.4-10.4) fL Immature Gran % (Auto) 0.4 % Neut % (Auto) 63.7 % Lymph % (Auto) 20.9 % [place] % (Auto) 12.9 % Eos % (Auto) 1.9 % Baso % (Auto) 0.2 % Immature Gran # (Auto) 0.05 H (0.00-0.02) K/uL Neut # (Auto) 9.08 H (1.4-6.5) K/uL Lymph # (Auto) 2.98 (1.2-3.4) K/uL [place] # (Auto) 1.84 H (0.11-0.59) K/uL Eos # (Auto) 0.27 (0-0.5) K/uL Baso # (Auto) 0.03 (0-0.2) K/uL Polychromasia 1+ Hypochromasia Present ESR 83 H (0-21) mm/hr PT 10.3 (9.0-12.0) Seconds INR 1.0 (0.9-1.1) APTT 30.9 (21.0-31.0) Seconds PTT Ratio 1.1 POC Sodium (135-144) mEq/L Sodium (136-145) mmol/L POC Potassium (3.3-5.0) mEq/L Potassium (3.5-5.1) mmol/L POC Chloride (101-112) mEq/L Chloride (98-107) mmol/L Carbon Dioxide (21-32) mmol/L POC Total CO2 (24-31) mEq/l Anion Gap (3-11) POC Anion Gap (16-25) mmol/L POC BUN (7-18) mg/dl BUN (7-18) mg/dl Creatinine (0.6-1.2) mg/dl POC Creatinine (0.6-1.3) mg/dl Est Cr Clr Drug Dosing ml/min Est GFR ( Amer) Est GFR (Non-Af Amer) BUN/Creatinine Ratio (10-20) Glucose (70-99) mg/dl POC Glucose (other) (70-99) mg/dl Calcium (8.5-10.1) mg/dl POC Ioniz Calcium Obie (1.12-1.32) mmol/l Total Bilirubin (0.2-1) mg/dl AST (15-37) U/L ALT (12-78) U/L Alkaline Phosphatase (45-117) U/L Troponin I (0-0.045) ng/ml C-Reactive Protein (0-0.29) mg/dl Total Protein (6.4-8.2) gm/dl Albumin (3.4-5.0) gm/dl Globulin (2.5-4.0) gm/dl Albumin/Globulin Ratio (0.9-2) HCG, Qual (Negative) Blood Type Antibody Screen 07/28/18 07/28/18 07/28/18 Range/Units 09:30 09:30 09:30 WBC (4.8-10.8) K/uL RBC (4.2-5.4) M/uL Hgb (12.0-16.0) g/dL POC Hgb (12.0-16.0) g/dl Hct (37-47) % POC Hct (37-47) % MCV (80-100) fL MCH (25-34) pg MCHC (32-36) g/dL RDW Std Deviation (36.4-46.3) fL RDW Coeff of Elayne (11.5-14.5) % Plt Count (130-400) K/uL MPV (7.4-10.4) fL Immature Gran % (Auto) % Neut % (Auto) % Lymph % (Auto) % [place] % (Auto) % Eos % (Auto) % Baso % (Auto) % Immature Gran # (Auto) (0.00-0.02) K/uL Neut # (Auto) (1.4-6.5) K/uL Lymph # (Auto) (1.2-3.4) K/uL [place] # (Auto) (0.11-0.59) K/uL Eos # (Auto) (0-0.5) K/uL Baso # (Auto) (0-0.2) K/uL Polychromasia Hypochromasia ESR (0-21) mm/hr PT (9.0-12.0) Seconds INR (0.9-1.1) APTT (21.0-31.0) Seconds PTT Ratio POC Sodium (135-144) mEq/L Sodium 141 (136-145) mmol/L POC Potassium (3.3-5.0) mEq/L Potassium 3.6 (3.5-5.1) mmol/L POC Chloride (101-112) mEq/L Chloride 107 (98-107) mmol/L Carbon Dioxide 27 (21-32) mmol/L POC Total CO2 (24-31) mEq/l Anion Gap 7.0 (3-11) POC Anion Gap (16-25) mmol/L POC BUN (7-18) mg/dl BUN 15 (7-18) mg/dl Creatinine 0.67 (0.6-1.2) mg/dl POC Creatinine (0.6-1.3) mg/dl Est Cr Clr Drug Dosing 89.7 ml/min Est GFR ( Amer) 128.3 Est GFR (Non-Af Amer) 110.7 BUN/Creatinine Ratio 21.6 H (10-20) Glucose 102 H (70-99) mg/dl POC Glucose (other) (70-99) mg/dl Calcium 9.6 (8.5-10.1) mg/dl POC Ioniz Calcium Obie (1.12-1.32) mmol/l Total Bilirubin 0.2 (0.2-1) mg/dl AST 8 L (15-37) U/L ALT 16 (12-78) U/L Alkaline Phosphatase 91 (45-117) U/L Troponin I 0.084 H* (0-0.045) ng/ml C-Reactive Protein 14.50 H (0-0.29) mg/dl Total Protein 7.8 (6.4-8.2) gm/dl Albumin 2.5 L (3.4-5.0) gm/dl Globulin 5.3 H (2.5-4.0) gm/dl Albumin/Globulin Ratio 0.5 L (0.9-2) HCG, Qual Negative (Negative) Blood Type Antibody Screen 07/28/18 07/28/18 Range/Units 09:33 09:42 WBC (4.8-10.8) K/uL RBC (4.2-5.4) M/uL Hgb (12.0-16.0) g/dL POC Hgb 8.8 L (12.0-16.0) g/dl Hct (37-47) % POC Hct 26 L (37-47) % MCV (80-100) fL MCH (25-34) pg MCHC (32-36) g/dL RDW Std Deviation (36.4-46.3) fL RDW Coeff of Elayne (11.5-14.5) % Plt Count (130-400) K/uL MPV (7.4-10.4) fL Immature Gran % (Auto) % Neut % (Auto) % Lymph % (Auto) % [place] % (Auto) % Eos % (Auto) % Baso % (Auto) % Immature Gran # (Auto) (0.00-0.02) K/uL Neut # (Auto) (1.4-6.5) K/uL Lymph # (Auto) (1.2-3.4) K/uL [place] # (Auto) (0.11-0.59) K/uL Eos # (Auto) (0-0.5) K/uL Baso # (Auto) (0-0.2) K/uL Polychromasia Hypochromasia ESR (0-21) mm/hr PT (9.0-12.0) Seconds INR (0.9-1.1) APTT (21.0-31.0) Seconds PTT Ratio POC Sodium 139 (135-144) mEq/L Sodium (136-145) mmol/L POC Potassium 3.6 (3.3-5.0) mEq/L Potassium (3.5-5.1) mmol/L POC Chloride 104 (101-112) mEq/L Chloride (98-107) mmol/L Carbon Dioxide (21-32) mmol/L POC Total CO2 25 (24-31) mEq/l Anion Gap (3-11) POC Anion Gap 15.0 L (16-25) mmol/L POC BUN 14 (7-18) mg/dl BUN (7-18) mg/dl Creatinine (0.6-1.2) mg/dl POC Creatinine 0.6 (0.6-1.3) mg/dl Est Cr Clr Drug Dosing ml/min Est GFR ( Amer) Est GFR (Non-Af Amer) BUN/Creatinine Ratio (10-20) Glucose (70-99) mg/dl POC Glucose (other) 107 H (70-99) mg/dl Calcium (8.5-10.1) mg/dl POC Ioniz Calcium Obie 1.18 (1.12-1.32) mmol/l Total Bilirubin (0.2-1) mg/dl AST (15-37) U/L ALT (12-78) U/L Alkaline Phosphatase (45-117) U/L Troponin I (0-0.045) ng/ml C-Reactive Protein (0-0.29) mg/dl Total Protein (6.4-8.2) gm/dl Albumin (3.4-5.0) gm/dl Globulin (2.5-4.0) gm/dl Albumin/Globulin Ratio (0.9-2) HCG, Qual (Negative) Blood Type O Positive Antibody Screen NEGATIVE Imaging Data Radiologist's Impression: Radiology results as stated below per my review and the radiologist's interpretation: XR chest 1V portable CLINICAL HISTORY: Pt c/o chest pain COMPARISON STUDY: 07/14/2018 FINDINGS: The bones soft tissues and hemidiaphragms are normal. The cardiomediastinal silhouette is normal. The lungs are clear. The pulmonary vasculature is normal. IMPRESSION: Negative chest. The above report was generated using voice recognition software. It may contain grammatical, syntax or spelling errors. Electronically signed by: Dilan Olivier M.D. 07/28/2018 9:45 AM ECG Data Attestation: I personally reviewed and interpreted this ECG as follows: Indication: chest pain Rate (beats per minute): 92 Rhythm: normal sinus Findings: + T-wave inversion (inferior); no ST depression, no ST elevation and no acute ischemic change Comparison ECG Date: from (07/15/18) Change: no significant change Blood Pressure Blood Pressure Findings: Normal blood pressure MDM Narrative This is a 38-year-old female who presents emergency department complaining of rectal bleeding. Patient has a history of ulcerative colitis as well as C. difficile. Her hemoglobin is trending down. I did discuss the case with the backup sawyer on-call who requested that the patient be admitted to the medicine service. I did discuss the case with the hospitalist who agreed to admit the patient. Patient and family were in agreement with the treatment plan. Impression & Plan GI bleed, Elevated troponin, Chest pain Discharge Plan Visit Data Chief Complaint: Shortness of Breath/Dyspnea Stated Complaint: ACUTE ANEMIA, CLARK, SOB, VOMITING, HEART PALP. ED Provider: Miguel Rachel Discharge Problem: GI bleed, Elevated troponin, Chest pain Patient Disposition: Being Evaluated by Hospitalist Forms Stand Alone Forms: My [facility] Prescriptions Prescriptions: No Action clonazepam 0.5 mg tablet 0.5 mg PO Q6H PRN (Reason: Anxiety) RF: 0 albuterol sulfate 90 mcg/actuation HFA aerosol inhaler 1 - 2 puff Inhalation Q6H PRN (Reason: Wheezing or Cough) RF: 0 duloxetine 60 mg capsule,delayed release(DR/EC) 60 mg PO QAM RF: 0 mesalamine [Lialda] 1.2 gram tablet,delayed release (DR/EC) 4.8 g PO HS RF: 0 thyroid (pork) [Clifton Thyroid] 90 mg tablet 90 mg PO DAILY RF: 0 acetaminophen 500 mg Tablet 500 mg PO Q6H PRN (Reason: Pain) RF: 0 almotriptan malate 12.5 mg Tablet 12.5 mg PO UD PRN (Reason: Migraine Headache) RF: 0 verapamil 120 mg tablet extended release 120 mg PO QAM RF: 0 benzonatate 100 mg capsule 100 mg PO TID PRN (Reason: Cough) RF: 0 dicyclomine 10 mg capsule 10 mg PO TID RF: 0 Excedrin Extra Strength 250-250-65 mg Tablet 1 tab PO Q6H PRN (Reason: Pain) RF: 0 Referrals Referrals: Stephie Perez MD [Primary Care Provider] - Discharge Problem: GI bleed Qualifiers: GI bleed type/associated pathology: unspecified gastrointestinal hemorrhage type Qualified Code(s): K92.2 - Gastrointestinal hemorrhage, unspecified Chest pain Qualifiers: Chest pain type: unspecified Qualified Code(s): R07.9 - Chest pain, unspecified The scribe's documentation has been prepared under my direction and personally reviewed by me in its entirety. I confirm that the note above accurately reflects all work, treatment, procedures, and medical decision making performed by me.
[2018-07-28] MEDS ORDERED: clonazePAM 0.5 MG TAB PO PRN (14:29)
[2018-07-28] MEDS ORDERED: BENZONATATE 100 MG CAPSULE PO PRN (14:29)
[2018-07-28] MEDS ORDERED: SODIUM CHLORIDE 0.9% 250 ML IV PRN ×2 (14:29→15:03)
[2018-07-28] MEDS ORDERED: ALBUTEROL HFA 8 GM INHALER INH PRN (14:29)
[2018-07-28 15:20] LABS: Magnesium 1.9 mg/dl (1.8-2.4); Phosphorus 3.5 mg/dl (2.5-4.9); Troponin I 0.086 ng/ml (0-0.045)
[2018-07-28] MEDS: MoRPHine SULFATE 2 MG/ML CARP IV PRN ×2 (15:27→19:53)
--- NOTE | 2018-07-28 15:49 | Cardiology Consultation ---
Date of Consultation July 28, 2018 Assessment & Plan (1) Preop cardiovascular exam: This patient has no significant cardiac history and minimal risk factors other than inflammatory bowel disease for coronary artery disease. She is anemic which could explain the borderline elevation in her cardiac troponin. The EKG however, is of concern as it represents new changes from earlier this month. It could also reflect her anemia. I would recommend transfusing the patient. Although she had an echo several weeks ago I will order another one for comparison and see if there are any wall motion abnormalities. I will recheck her EKG once she has had a blood transfusion and have further kayleigh mmendations. (2) Abnormal EKG: (3) Ulcerative colitis: (4) Rectal bleeding: (5) Anemia: History of Present Illness Attending Physician: Vesta Varner MD History of Present Illness This is a 38-year-old female with no prior history of heart disease and no significant risk factors for heart disease other than inflammatory bowel disease. The patient has ulcerative colitis. Earlier this month she was admitted with bloody stools and anemia. During that admission she had an echocardiogram which showed normal LV function and mild mitral and tricuspid regurgitation. No other significant findings. She has had a persistent dry nonproductive cough for several months. She is scheduled to see a music industry intern in a few weeks. She has had no activity related chest pain or progressive shortness of breath. No heart palpitations, tachycardia, dizziness or lightheadedness. Patient has been admitted again with bloody stools and is anemic requiring blood transfusions. Her cardiac troponins are elevated most likely due to demand ischemia from her anemia. She also has new EKG changes with T wave inversions across the anterior precordium and inferior leads which may be related to her anemia but are concerning because they are new from a previous EKG done earlier this month when she was admitted. I have been asked to see her in regard to risk assessment for a colonoscopy. Allergies Allergy/AdvReac Type Severity Reaction Status Date / Time Penicillins Allergy Unknown rash Verified 07/28/18 09:46 azithromycin [From Zithromax] Allergy Hives Verified 07/28/18 09:46 OTC COUGH MEDICINES Allergy Unknown hives Uncoded 07/28/18 09:46 Home Medications Home Medications Medication Instructions Recorded Confirmed Type almotriptan malate 12.5 mg PO UD PRN 05/23/18 07/28/18 History acetaminophen 500 mg PO Q6H PRN 07/14/18 07/28/18 History albuterol sulfate 1 - 2 puff INHALATION Q6H PRN 07/14/18 07/28/18 History clonazepam 0.5 mg PO Q6H PRN 07/14/18 07/28/18 History duloxetine 60 mg PO QAM 07/14/18 07/28/18 History mesalamine [Lialda] 4.8 g PO HS 07/14/18 07/28/18 History thyroid (pork) [[place] Thyroid] 90 mg PO DAILY 07/14/18 07/28/18 History mrwsdei-pqvqjfpzzjxnn-apgourqi 1 tab PO Q6H PRN 07/28/18 07/28/18 History [Excedrin Extra Strength] benzonatate 100 mg PO TID PRN 07/28/18 07/28/18 History dicyclomine 10 mg PO TID 07/28/18 07/28/18 History verapamil 120 mg PO QAM 07/28/18 07/28/18 History Patient History Medical History Anxiety (Chronic) Hypothyroid (Chronic) Migraines (Chronic) Ulcerative colitis (Chronic) H/O lipoma Sacroiliitis Surgical History H/O rotator cuff surgery bilateral Family History Mother Hypothyroid Paget disease of bone Father Hypothyroid Hypertension Aunt Ulcerative colitis Brother Crohn's disease Sister Graves disease Social History Preferred Language: Latvian Communication Ability: Effective Photoresist 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 All other 10 point review of systems are negative. Physical Exam Vital Signs (Past 24 Hours): Last Vital Signs Temp 36.6 C 07/28/18 14:30 Pulse 115 H 07/28/18 14:30 Resp 20 07/28/18 14:30 BP 131/93 07/28/18 14:30 Pulse Ox 100 07/28/18 14:30 Physical Exam: General: no acute distress and stated age Head: normocephalic, no masses, lesions, tenderness or abnormalities Eyes: conjunctiva are pink and non-injected, sclera clear Neck: supple, no adenopathy, no bruits, normal jugular venous pulse, no hepatojugular reflux Chest: normal shape and normal respiratory effort Lungs: clear to auscultation and percussion Cardiac Exam: - regular rate & rhythm, no murmurs gallops or rubs - normal S1, normal S2 and S4 is present. No S3. Pulses: 2(+) throughout Abdomen: abdomen soft, non-tender, no abnormal masses and no hepatosplenomegaly Musculoskeletal: no gait disturbance, no joint inflammation, no deforming arthritis Extremities: no edema and no cyanosis Neuro: grossly normal exam Results & Data Laboratory Results Laboratory Results - last 24 hr 07/28/18 07/28/18 07/28/18 09:20 09:30 09:30 WBC 14.25 H RBC 3.30 L Hgb 9.0 L POC Hgb Hct 28.7 L POC Hct MCV 87.0 MCH 27.3 MCHC 31.4 L RDW Std Deviation 52.3 H RDW Coeff of Elayne 16.3 H Plt Count 669 H MPV 8.1 Immature Gran % (Auto) 0.4 Neut % (Auto) 63.7 Lymph % (Auto) 20.9 [place] % (Auto) 12.9 Eos % (Auto) 1.9 Baso % (Auto) 0.2 Immature Gran # (Auto) 0.05 H Neut # (Auto) 9.08 H Lymph # (Auto) 2.98 [place] # (Auto) 1.84 H Eos # (Auto) 0.27 Baso # (Auto) 0.03 Polychromasia 1+ Hypochromasia Present ESR 83 H PT 10.3 INR 1.0 APTT 30.9 PTT Ratio 1.1 POC Sodium Sodium POC Potassium Potassium POC Chloride Chloride Carbon Dioxide POC Total CO2 Anion Gap POC Anion Gap POC BUN BUN Creatinine POC Creatinine Est Cr Clr Drug Dosing Est GFR ( Amer) Est GFR (Non-Af Amer) BUN/Creatinine Ratio Glucose POC Glucose (other) Calcium POC Ioniz Calcium Obie Phosphorus Magnesium Total Bilirubin AST ALT Alkaline Phosphatase Troponin I C-Reactive Protein Total Protein Albumin Globulin Albumin/Globulin Ratio HCG, Qual Blood Type Antibody Screen Crossmatch 07/28/18 07/28/18 07/28/18 09:30 09:30 09:30 WBC RBC Hgb POC Hgb Hct POC Hct MCV MCH MCHC RDW Std Deviation RDW Coeff of Elayne Plt Count MPV Immature Gran % (Auto) Neut % (Auto) Lymph % (Auto) [place] % (Auto) Eos % (Auto) Baso % (Auto) Immature Gran # (Auto) Neut # (Auto) Lymph # (Auto) [place] # (Auto) Eos # (Auto) Baso # (Auto) Polychromasia Hypochromasia ESR PT INR APTT PTT Ratio POC Sodium Sodium 141 POC Potassium Potassium 3.6 POC Chloride Chloride 107 Carbon Dioxide 27 POC Total CO2 Anion Gap 7.0 POC Anion Gap POC BUN BUN 15 Creatinine 0.67 POC Creatinine Est Cr Clr Drug Dosing 89.7 Est GFR ( Amer) 128.3 Est GFR (Non-Af Amer) 110.7 BUN/Creatinine Ratio 21.6 H Glucose 102 H POC Glucose (other) Calcium 9.6 POC Ioniz Calcium Obie Phosphorus Magnesium Total Bilirubin 0.2 AST 8 L ALT 16 Alkaline Phosphatase 91 Troponin I 0.084 H* C-Reactive Protein 14.50 H Total Protein 7.8 Albumin 2.5 L Globulin 5.3 H Albumin/Globulin Ratio 0.5 L HCG, Qual Negative Blood Type Antibody Screen Crossmatch 07/28/18 07/28/18 07/28/18 09:33 09:42 14:38 WBC RBC Hgb POC Hgb 8.8 L Hct POC Hct 26 L MCV MCH MCHC RDW Std Deviation RDW Coeff of Elayne Plt Count MPV Immature Gran % (Auto) Neut % (Auto) Lymph % (Auto) [place] % (Auto) Eos % (Auto) Baso % (Auto) Immature Gran # (Auto) Neut # (Auto) Lymph # (Auto) [place] # (Auto) Eos # (Auto) Baso # (Auto) Polychromasia Hypochromasia ESR PT INR APTT PTT Ratio POC Sodium 139 Sodium POC Potassium 3.6 Potassium POC Chloride 104 Chloride Carbon Dioxide POC Total CO2 25 Anion Gap POC Anion Gap 15.0 L POC BUN 14 BUN Creatinine POC Creatinine 0.6 Est Cr Clr Drug Dosing Est GFR ( Amer) Est GFR (Non-Af Amer) BUN/Creatinine Ratio Glucose POC Glucose (other) 107 H Calcium POC Ioniz Calcium Obie 1.18 Phosphorus 3.5 Magnesium 1.9 Total Bilirubin AST ALT Alkaline Phosphatase Troponin I 0.086 H* C-Reactive Protein Total Protein Albumin Globulin Albumin/Globulin Ratio HCG, Qual Blood Type O Positive Antibody Screen NEGATIVE Crossmatch See Detail Medications Administered Current Inpatient Medications Acetaminophen (Tylenol) 500 mg PO Q6H PRN PRN Reason: Pain Stop: 08/27/18 14:28 Albuterol (Ventolin Hfa) 2 puffs INH Q6H PRN PRN Reason: Wheezing or Cough Stop: 08/27/18 14:28 Benzonatate (Tessalon Perle) 100 mg PO TID PRN PRN Reason: Cough Stop: 08/27/18 14:28 Bisacodyl (Dulcolax) 20 mg PO NOW ONE Stop: 07/28/18 17:01 Clonazepam (Klonopin) 0.5 mg PO Q6H PRN PRN Reason: Anxiety Stop: 08/27/18 14:28 Dicyclomine HCl (Bentyl) 10 mg PO TID [facility] Stop: 08/27/18 15:14 Duloxetine HCl (Cymbalta) 60 mg PO QAM [facility] Stop: 08/28/18 08:59 Sodium Chloride (Nss) 250 mls @ 15 mls/hr IV .[id number] PRN PRN Reason: For Transfusion Stop: 08/27/18 15:02 Mesalamine (Delzicol) 800 mg PO TID [facility] Stop: 08/27/18 20:59 Miscellaneous (Order Awaiting Action) 1 ea N/A QS [facility] Stop: 08/27/18 15:59 Last Admin: 07/28/18 15:27 Dose: Not Given Documented by: Morphine Sulfate (Morphine Sulfate) 2 mg IV Q4H PRN PRN Reason: Pain Stop: 08/11/18 14:28 Last Admin: 07/28/18 15:27 Dose: 2 mg Documented by: Ondansetron HCl (Zofran) 4 mg IV Q6H PRN PRN Reason: Nausea Stop: 08/27/18 14:28 Polyethylene Glycol (Miralax Powder Packet) 119 gm PO TODAY@1700 ONE Stop: 07/28/18 17:01 Polyethylene Glycol (Miralax Powder Packet) 119 gm PO TODAY@2100 ONE Stop: 07/28/18 21:01 Thyroid ([place] Thyroid) 90 mg PO DAILY MARILU Stop: 08/28/18 08:59 Verapamil HCl (Calan Sr) 120 mg PO QAM MARILU Stop: 08/28/18 08:59 (1) Anemia Anemia type: unspecified type Qualified Code(s): D64.9 - Anemia, unspecified
--- NOTE | 2018-07-28 16:24 | Cardiology Consultation ---
Date of Consultation July 28, 2018 Assessment & Plan (1) Abnormal EKG: She has a sinus tachycardia and diffuse T-wave inversions. This is very nonspecific finding. Very likely that with a return to a normal heart rate her T-wave inversions will improve. This represents a minor change from prior EKGs. I do not believe this is diagnostic of any specific abnormality. (2) Elevated troponin: She is very mildly elevated cardiac biomarkers. These appear to be chronically elevated. This may be in response to her notable anemia and tachycardia. It could be part of an inflammatory process causing other symptoms. This is not appeals representative of an acute coronary syndrome. Do not believe she requires any additional cardiac testing and can certainly proceed with the planned endoscopy without additional cardiac evaluation. Most of her presenting symptoms are likely related to her anemia. She is scheduled for another transfusion and will monitor her symptoms for improvement. (3) Chest pain: I believe this is noncardiac chest pain. Is likely related to her chronic cough. It is pleuritic in nature and chronic without a specific exertional component. (4) Palpitations: Many of her palpitations are likely related to a sinus tachycardia in the setting of anemia and activity. However, she certainly could have a primary arrhythmia. She is currently on telemetry and will monitor her symptoms and rhythm. (5) Valvular heart disease: She has mild to moderate mitral regurgitation and moderate tricuspid regurgitation. While this is somewhat unusual for a woman her age, does not require any specific intervention or additional evaluation currently. History of Present Illness Reason for Consultation: Abnormal troponin Requesting Physician: George Attending Physician: Vesta Varner MD History of Present Illness The patient is a 38-year-old woman with a reported history of ulcerative colitis and several admissions to [facility] this year. Initial admission in May was for C difficile colitis. She was also admitted earlier this month for symptomatic anemia. Patient states that after her last admission and a blood transfusion she actually felt well for approximately 2 days. Afterwards she began to experience a recurrence of her symptoms which included e xercise intolerance, lightheadedness with positional changes, palpitations and severe headaches. Most of her symptoms seem to occur with activity with the exception of the headaches. She states that changes in position often produce a sense of palpitations and presyncope. She has not suffered actual syncope. She does report a sense of dyspnea with activity but not at rest. She does not report orthopnea or paroxysmal nocturnal dyspnea. She does have a sense of chest discomfort. However, this is chronic in nature, worse with deep inspiration and coughing. She does have a chronic nonproductive cough. She has had headaches every day and has been taking [id number] analgesics in the form Excedrin quite frequently. She has not report much in the way of abdominal complaints. She has not reported overt blood per rectum. She did not report melena. She did have some vomiting but she did not describe this as coffee-ground or bloody. She denies any recent fevers or chills. She has not noticed any rashes. She has not had any swelling in her lower extremities. Several months ago before her admission to [facility] she was exercising regularly. She was engaging in bicycling and working out at the gym. She did not have limiting symptoms of dyspnea or symptoms of chest discomfort. Her activity was curtailed due to an ankle injury. Allergies Allergy/AdvReac Type Severity Reaction Status Date / Time Penicillins Allergy Unknown rash Verified 07/28/18 09:46 azithromycin [From Zithromax] Allergy Hives Verified 07/28/18 09:46 OTC COUGH MEDICINES Allergy Unknown hives Uncoded 07/28/18 09:46 Home Medications Home Medications Medication Instructions Recorded Confirmed Type almotriptan malate 12.5 mg PO UD PRN 05/23/18 07/28/18 History acetaminophen 500 mg PO Q6H PRN 07/14/18 07/28/18 History albuterol sulfate 1 - 2 puff INHALATION Q6H PRN 07/14/18 07/28/18 History clonazepam 0.5 mg PO Q6H PRN 07/14/18 07/28/18 History duloxetine 60 mg PO QAM 07/14/18 07/28/18 History mesalamine [Lialda] 4.8 g PO HS 07/14/18 07/28/18 History thyroid (pork) [[place] Thyroid] 90 mg PO DAILY 07/14/18 07/28/18 History blkbkgy-heqmzugcsvxha-nzycuhfo 1 tab PO Q6H PRN 07/28/18 07/28/18 History [Excedrin Extra Strength] benzonatate 100 mg PO TID PRN 07/28/18 07/28/18 History dicyclomine 10 mg PO TID 07/28/18 07/28/18 History verapamil 120 mg PO QAM 07/28/18 07/28/18 History Patient History Medical History Anxiety (Chronic) Hypothyroid (Chronic) Migraines (Chronic) Ulcerative colitis (Chronic) H/O lipoma Sacroiliitis Surgical History H/O rotator cuff surgery bilateral Family History Mother Hypothyroid Paget disease of bone Father Hypothyroid Hypertension Aunt Ulcerative colitis Brother Crohn's disease Sister Graves disease Social History Preferred Language: Pakistani Communication Ability: Effective 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 Pertinent positives noted in history of present illness Physical Exam Vital Signs (Past 24 Hours): Last Vital Signs Temp 36.8 C 07/28/18 16:01 Pulse 125 H 07/28/18 16:01 Resp 18 07/28/18 16:01 BP 137/87 07/28/18 16:01 Pulse Ox 99 07/28/18 16:01 Physical Exam: She is alert and oriented x3. Mood affect appear normal. She answered all questions appropriately. HEENT: Sclerae are anicteric. Pupils are equal and reactive to light and accommodation. Extraocular movements were intact. Neuro: Cranial nerves intact Neck: Examination of the submandibular region did not reveal any significant lymphadenopathy. Carotids are palpable bilaterally and free of bruits on auscultation. There was no evidence of jugular venous distention. The thyroid was not enlarged. Lungs: Lungs are clear to auscultation bilaterally. There are no rales wheezes or rhonchi. She has normal respiratory effort without use of accessory muscles. There is normal pulmonary excursion. Cardiac: The rhythm was regular. S1 and S2 were normal. There are no murmurs on examination. The PMI was not markedly displaced on palpation. Extremities: Patient has bilateral radial pulses that are equal in intensity. There is no evidence cyanosis or clubbing. There was no evidence of significant peripheral edema bilaterally. Skin: There are no rashes noted on examination today. She had some tattoos. She did appear somewhat pale. Results & Data Laboratory Results Abnormal Lab Results 07/28/18 07/28/18 07/28/18 09:20 09:30 09:30 WBC 14.25 H RBC 3.30 L Hgb 9.0 L POC Hgb Hct 28.7 L POC Hct MCV 87.0 MCH 27.3 MCHC 31.4 L RDW Std Deviation 52.3 H RDW Coeff of Elayne 16.3 H Plt Count 669 H MPV 8.1 Immature Gran % (Auto) 0.4 Neut % (Auto) 63.7 Lymph % (Auto) 20.9 [place] % (Auto) 12.9 Eos % (Auto) 1.9 Baso % (Auto) 0.2 Immature Gran # (Auto) 0.05 H Neut # (Auto) 9.08 H Lymph # (Auto) 2.98 [place]yer # (Auto) 1.84 H Eos # (Auto) 0.27 Baso # (Auto) 0.03 Polychromasia 1+ Hypochromasia Present ESR 83 H PT 10.3 INR 1.0 APTT 30.9 PTT Ratio 1.1 POC Sodium Sodium POC Potassium Potassium POC Chloride Chloride Carbon Dioxide POC Total CO2 Anion Gap POC Anion Gap POC BUN BUN Creatinine POC Creatinine Est Cr Clr Drug Dosing Est GFR ( Amer) Est GFR (Non-Af Amer) BUN/Creatinine Ratio Glucose POC Glucose (other) Calcium POC Ioniz Calcium Obie Phosphorus Magnesium Total Bilirubin AST ALT Alkaline Phosphatase Troponin I C-Reactive Protein Total Protein Albumin Globulin Albumin/Globulin Ratio HCG, Qual Blood Type Antibody Screen Crossmatch 07/28/18 07/28/18 07/28/18 09:30 09:30 09:30 WBC RBC Hgb POC Hgb Hct POC Hct MCV MCH MCHC RDW Std Deviation RDW Coeff of Elayne Plt Count MPV Immature Gran % (Auto) Neut % (Auto) Lymph % (Auto) [place] % (Auto) Eos % (Auto) Baso % (Auto) Immature Gran # (Auto) Neut # (Auto) Lymph # (Auto) [place]yer # (Auto) Eos # (Auto) Baso # (Auto) Polychromasia Hypochromasia ESR PT INR APTT PTT Ratio POC Sodium Sodium 141 POC Potassium Potassium 3.6 POC Chloride Chloride 107 Carbon Dioxide 27 POC Total CO2 Anion Gap 7.0 POC Anion Gap POC BUN BUN 15 Creatinine 0.67 POC Creatinine Est Cr Clr Drug Dosing 89.7 Est GFR ( Amer) 128.3 Est GFR (Non-Af Amer) 110.7 BUN/Creatinine Ratio 21.6 H Glucose 102 H POC Glucose (other) Calcium 9.6 POC Ioniz Calcium Obie Phosphorus Magnesium Total Bilirubin 0.2 AST 8 L ALT 16 Alkaline Phosphatase 91 Troponin I 0.084 H* C-Reactive Protein 14.50 H Total Protein 7.8 Albumin 2.5 L Globulin 5.3 H Albumin/Globulin Ratio 0.5 L HCG, Qual Negative Blood Type Antibody Screen Crossmatch 07/28/18 07/28/18 07/28/18 09:33 09:42 14:38 WBC RBC Hgb POC Hgb 8.8 L Hct POC Hct 26 L MCV MCH MCHC RDW Std Deviation RDW Coeff of Elayne Plt Count MPV Immature Gran % (Auto) Neut % (Auto) Lymph % (Auto) [place]yer % (Auto) Eos % (Auto) Baso % (Auto) Immature Gran # (Auto) Neut # (Auto) Lymph # (Auto) [place] # (Auto) Eos # (Auto) Baso # (Auto) Polychromasia Hypochromasia ESR PT INR APTT PTT Ratio POC Sodium 139 Sodium POC Potassium 3.6 Potassium POC Chloride 104 Chloride Carbon Dioxide POC Total CO2 25 Anion Gap POC Anion Gap 15.0 L POC BUN 14 BUN Creatinine POC Creatinine 0.6 Est Cr Clr Drug Dosing Est GFR ( Amer) Est GFR (Non-Af Amer) BUN/Creatinine Ratio Glucose POC Glucose (other) 107 H Calcium POC Ioniz Calcium Obie 1.18 Phosphorus 3.5 Magnesium 1.9 Total Bilirubin AST ALT Alkaline Phosphatase Troponin I 0.086 H* C-Reactive Protein Total Protein Albumin Globulin Albumin/Globulin Ratio HCG, Qual Blood Type O Positive Antibody Screen NEGATIVE Crossmatch See Detail Diagnostic Findings Echocardiogram performed 07/2018 revealed preserved right and left systolic function. Mild to moderate mitral regurgitation. Moderate tricuspid regurgitation. Normal pulmonary pressures. Chest x-ray obtained on admission did not reveal any acute cardiopulmonary abnormalities. ECG Additional Comments: Sinus tachycardia with nonspecific ST and T-wave changes, primarily T-wave inversions. (1) Chest pain Chest pain type: unspecified Qualified Code(s): R07.9 - Chest pain, unspecified
[2018-07-28] MEDS: DICYCLOMINE HCL 10 MG CAP PO SCH ×2 (16:55→20:08)
[2018-07-28] MEDS: ACETAMINOPHEN 500 MG TAB PO PRN ×2 (16:59→23:46)
[2018-07-28] MEDS ORDERED: POLYETHYLENE (MIRALAX) 17 GM PACK PO ONE ×2 (17:00→21:00)
[2018-07-28] MEDS ORDERED: BISACODYL 5 MG TABEC PO ONE (17:00)
[2018-07-28] MEDS: MESALAMINE 400 MG CAPDR PO SCH (20:08)
[2018-07-28] MEDS: ONDANSETRON INJ 2 MG/ML 2 ML VIAL IV PRN (21:43)
[2018-07-28 23:14] LABS: Cdiff Antigen Positive; Cdiff Toxin A+B Negative Cdiff Toxin (Negative)
[2018-07-29] MEDS: MoRPHine SULFATE 2 MG/ML CARP IV PRN ×3 (03:54→19:02)
[2018-07-29] MEDS: ONDANSETRON INJ 2 MG/ML 2 ML VIAL IV PRN ×3 (03:54→23:40)
[2018-07-29 05:34] LABS: Hematocrit (blood only) 30.5 % (37-47); Hemoglobin 9.7 g/dL (12.0-16.0); Mean Corpuscular Hgb Conc 31.8 g/dL (32-36); Mean Corpuscular Volume 83.8 fL (80-100); Mean Platelet Volume 8.1 fL (7.4-10.4); Nucleated RBC # (auto) 0.02 K/uL (0-0); Nucleated RBC % (auto) 0.2 %; Platelet Count 569 K/uL (130-400); RDW Coefficient of Variation 16.8 % (11.5-14.5); RDW Standard Deviation 51.5 fL (36.4-46.3); Red Blood Count 3.64 M/uL (4.2-5.4); White Blood Count 9.47 K/uL (4.8-10.8)
[2018-07-29 06:12] LABS: Basophils # (auto) 0.03 K/uL (0-0.2); Basophils % (auto) 0.3 %; Eosinophils # (auto) 0.19 K/uL (0-0.5); Immature Granulocytes # (auto) 0.05 K/uL (0.00-0.02); Immature Granulocytes % (auto) 0.5 %; Lymphocytes # (auto) 2.83 K/uL (1.2-3.4); Lymphocytes % (auto) 29.9 %; Monocytes # (auto) 1.48 K/uL (0.11-0.59); Monocytes % (auto) 15.6 %; Neutrophils # (auto) 4.89 K/uL (1.4-6.5); Neutrophils % (auto) 51.7 %; Stomatocytes 1+
[2018-07-29 06:15] LABS: BUN Creatinine Ratio 12.7 (10-20); C Reactive Protein 16.3 mg/dl (0-0.29); Calcium 8.6 mg/dl (8.5-10.1); Creatinine Clr Calc Pharmacy 105.4 ml/min; Est GFR (African American) 135.3; Est GFR (Non-African American) 116.8; Potassium 3.3 mmol/L (3.5-5.1)
[2018-07-29] MEDS: ACETAMINOPHEN 500 MG TAB PO PRN ×2 (06:47→21:10)
[2018-07-29] MEDS ORDERED: POTASSIUM CHLORIDE 10 MEQ TABCR PO STA (08:19)
[2018-07-29] MEDS: ARMOUR THYROID 30 MG TAB PO SCH (09:36)
[2018-07-29] MEDS: DULOXETINE HCL 60 MG CAP PO SCH (09:36)
[2018-07-29] MEDS: VERAPAMIL HCL 120 MG TABCR PO SCH (09:36)
[2018-07-29] MEDS: DICYCLOMINE HCL 10 MG CAP PO SCH ×3 (09:37→21:11)
[2018-07-29] MEDS: MESALAMINE 400 MG CAPDR PO SCH ×3 (09:37→21:11)
--- NOTE | 2018-07-29 10:56 | History & Physical Bridge Note ---
Date of Service July 29, 2018 History & Physical Bridge Note I have examined the patient, reviewed the History & Physical and in the interval since the performance of the History & Physical I have noted the following changes of clinical significance: no changes noted Reviewed chart including VS, labs. No acute issues overnight. She had stool cx done (pending). Cdiff gene positive but negative toxin likely a carrier. Received 1U PRBC transfusion, slight improvement of Hgb to 9.7. She had completed bowel prep, been NPO since midnight. Will proceed with EGD, Colonoscopy eval and we will give further recs after procedures are completed. Supervising Physician Co-Signing Physician Notes I performed a history and physical examination of the patient, including specifically on physical exam - soft, nontender abdomen. I have discussed the patient's management with Yolie. Please refer to the nurse practitioner's note for the documented findings and plan of care. EGD and colonoscopy today
[2018-07-29] MEDS ORDERED: ONDANSETRON INJ 2 MG/ML 2 ML VIAL IV STA (13:16)
[2018-07-29] MEDS ORDERED: ACETAMINOPHEN 1,000 MG/100 ML VIAL IV STA ×2 (13:16→15:56)
[2018-07-29] MEDS ORDERED: SODIUM CHLORIDE 0.9% 1000ML 1,000 ML IV SCH (13:30)
--- NOTE | 2018-07-29 14:08 | Anesthesiology Consultation ---
Date of Service July 29, 2018 Assessment & Plan (1) Encounter for pre-operative examination: Chart Review Chart Review: Acceptable Risk for Surgery and Patient NOT seen in Pre Admission Testing Consults Requested none ASA ASA2 Proposed Anesthesia Anesthesia Type: MAC Risk / Benefits Reviewed With: PT / POA / Parent / Guardian, Accepts Plan and Informed Consent Obtained NPO Date Last Intake of Fluids: 07/28/18 Time Last Intake of Fluids: 23:59 Date Last Intake of Solids: 07/27/18 Time Last Intake of Solids: 18:00 History Surgery Operation Date: 07/29/18 08:30 Proposed Procedures p Colonoscopy EGD Dr. Chanel - Laury Chanel MD Height/Weight Height: 5 ft Weight: 56.9 kg Allergies Allergy/AdvReac Type Severity Reaction Status Date / Time Penicillins Allergy Unknown rash Verified 07/28/18 09:46 azithromycin [From Zithromax] Allergy Hives Verified 07/28/18 09:46 OTC COUGH MEDICINES Allergy Unknown hives Uncoded 07/28/18 09:46 Medications Home Medications Medication Instructions Recorded Confirmed Last Taken almotriptan malate 12.5 mg PO UD PRN 05/23/18 07/28/18 05/22/18 acetaminophen 500 mg PO Q6H PRN 07/14/18 07/28/18 07/28/18 05:00 500mg albuterol sulfate 1 - 2 puff INHALATION Q6H PRN 07/14/18 07/28/18 Unknown clonazepam 0.5 mg PO Q6H PRN 07/14/18 07/28/18 07/26/18 duloxetine 60 mg PO QAM 07/14/18 07/28/18 07/28/18 mesalamine [Lialda] 4.8 g PO HS 07/14/18 07/28/18 07/27/18 thyroid (pork) [Mccamey Thyroid] 90 mg PO DAILY 07/14/18 07/28/18 07/28/18 [id number] 1 tab PO Q6H PRN 07/28/18 07/28/18 07/28/18 05:00 [Excedrin Extra Strength] benzonatate 100 mg PO TID PRN 07/28/18 07/28/18 07/27/18 100mg dicyclomine 10 mg PO TID 07/28/18 07/28/18 Unknown verapamil 120 mg PO QAM 07/28/18 07/28/18 07/27/18 Active Medications Generic Name Dose Route Start Last Admin Trade Name Nicq PRN Reason Stop Dose Admin Acetaminophen 500 mg 07/28/18 14:29 07/29/18 06:47 Tylenol PO 08/27/18 14:28 500 mg Q6H PRN Administration Pain Benzonatate 100 mg 07/28/18 14:29 07/28/18 20:10 Tessalon Perle PO 08/27/18 14:28 100 mg TID PRN Administration Cough Dicyclomine HCl 10 mg 07/28/18 15:15 07/29/18 09:37 Bentyl PO 08/27/18 15:14 10 mg TID MARILU Administration Duloxetine HCl 60 mg 07/29/18 09:00 07/29/18 09:36 Cymbalta PO 08/28/18 08:59 60 mg QAM MARILU Administration Mesalamine 800 mg 07/28/18 21:00 07/29/18 09:37 Delzicol PO 08/27/18 20:59 800 mg TID MARILU Administration Miscellaneous 1 ea 07/28/18 16:00 07/29/18 07:23 Order Awaiting Action N/A 08/27/18 15:59 Not Given QS MARILU Morphine Sulfate 2 mg 07/28/18 14:29 07/29/18 09:43 Morphine Sulfate IV 08/11/18 14:28 2 mg Q4H PRN Administration Pain Ondansetron HCl 4 mg 07/28/18 14:29 07/29/18 03:54 Zofran IV 08/27/18 14:28 4 mg Q6H PRN Administration Nausea Thyroid 90 mg 07/29/18 09:00 07/29/18 09:36 Mccamey Thyroid PO 08/28/18 08:59 90 mg DAILY MARILU Administration Verapamil HCl 120 mg 07/29/18 09:00 07/29/18 09:36 Calan Sr PO 08/28/18 08:59 120 mg QAM MARILU Administration Past Medical History Medical History Elevated troponin Anxiety (Chronic) Hypothyroid (Chronic) Migraines (Chronic) Ulcerative colitis (Chronic) H/O lipoma Sacroiliitis Past Family History Family History Mother Hypothyroid Paget disease of bone Father Hypothyroid Hypertension Aunt Ulcerative colitis Brother Crohn's disease Sister Graves disease Past Surgical History Surgical History History of colonoscopy H/O rotator cuff surgery bilateral Past Anesthesia History No Hx of Anesthesia Complications and No Family Hx of Anesthesia Complications History of PONV Yes (after shoulder surgery) Motion Sickness Screening History of Motion Sickness: No Social History Smoking Status: Never smoker Do You Dip or Chew Tobacco: No Hx Alcohol Use: Yes Alcohol type: beer and wine alcohol intake frequency: holidays/special occasions only Hx Substance Use: No Exercise / Class Metabolic Activity II 4-5 Yardwork/Stairs/Walk up [place] Review of Systems no chest pain or sob Physical Exam Vital Signs Last Vital Signs Temp 36.9 C 07/29/18 13:51 Pulse 100 H 07/29/18 13:51 Resp 18 07/29/18 13:51 BP 109/80 07/29/18 13:51 Pulse Ox 98 07/29/18 13:51 ENMT Mouth: no TMJ abnormality Thyromental Distance: > or= 3.5 Finger Breadths Mallampati Class: II Neck normal visual inspection Respiratory normal respiratory effort Auscultation: lungs clear to auscultation bilaterally Cardiovascular Rate/Rhythm: regular rate and regular rhythm Musculoskeletal Spine: normal cervical ROM Neurologic moves all extremities Psychiatric Orientation: alert and oriented x 3 Testing Electrocardiogram Date: 07/29/18 Findings: + ST @ (102) TWI Chest X-Ray Date: 07/28/18 Findings: + NAD Echocardiogram Date: 07/29/18 EF: 55-60 Valvular Disease: + MR (mild to mod) Laboratory Results 07/29/18 05:14 07/29/18 05:14 Blood Type O Positive 07/28/18 09:33 Antibody Screen NEGATIVE 07/28/18 09:33 PT 10.3 Seconds (9.0-12.0) 07/28/18 09:30 INR 1.0 (0.9-1.1) 07/28/18 09:30 APTT 30.9 Seconds (21.0-31.0) 07/28/18 09:30
[2018-07-29] MEDS ORDERED: LIDOCAINE HCL 2% 2 ML VIAL/AMP(20MG/ML) INFIL ONE (14:13)
[2018-07-29] MEDS ORDERED: PROPOFOL IV EMULSION 10 MG/ML 20 ML VIAL IV ONE ×3 (14:13→14:14)
--- NOTE | 2018-07-29 14:44 | GI REPORT ---
Patient Name: Carli Crow Procedure Date: 07/29/2018 2:24 PM Date of : 1980 Admit Type: Inpatient Age: 38 Gender: Female Attending MD: Laury Chanel MD Procedure: Upper GI endoscopy Providers: Laury Chanel MD Referring MD: Vesta Varner Md, Ray Garay MD, Benny Sinclair Indications: Abdominal pain, Hematochezia Medicines: Monitored Anesthesia Care Complications: No immediate complications. Estimated Blood Loss: Estimated blood loss: none. Procedure: Pre-Anesthesia Assessment: - Prior to the procedure, a History and Physical was performed, and patient medications and allergies were reviewed. The patient is competent. The risks and benefits of the procedure and the sedation options and risks were discussed with the patient. All questions were answered and informed consent was obtained. Patient identification and proposed procedure were verified by the physician and the nurse in the procedure room. Mental Status Examination: alert and oriented. Airway Examination: normal oropharyngeal airway and neck mobility. Respiratory Examination: clear to auscultation. CV Examination: normal. ASA Grade Assessment: II - A patient with mild systemic disease. After reviewing the risks and benefits, the patient was deemed in satisfactory condition to undergo the procedure. The anesthesia plan was to use monitored anesthesia care (MAC). Immediately prior to administration of medications, the patient was re-assessed for adequacy to receive sedatives. The heart rate, respiratory rate, oxygen saturations, blood pressure, adequacy of pulmonary ventilation, and response to care were monitored throughout the procedure. The physical status of the patient was re-assessed after the procedure. After obtaining informed consent, the endoscope was passed under direct vision. Throughout the procedure, the patient's blood pressure, pulse, and oxygen saturations were monitored continuously. The Endoscope was introduced through the mouth, and advanced to the second part of duodenum. The upper GI endoscopy was accomplished without difficulty. The patient tolerated the procedure well. Findings: The examined esophagus was normal. Mildly erythematous mucosa was found in the gastric antrum. Biopsies were taken with a cold forceps for Helicobacter pylori testing. Verification of patient identification for the specimen was done by the physician and nurse using the patient's name and date. The first portion of the duodenum and second portion of the duodenum were normal. Biopsies were taken with a cold forceps for histology. Impression: - Normal esophagus. - Erythematous mucosa in the antrum. Biopsied. - Normal first portion of the duodenum and second portion of the duodenum. Biopsied. Recommendation: - Await pathology results. - Perform a colonoscopy. Laury Chanel MD 07/29/2018 2:44:02 PM This report has been signed electronically. Note Initiated On: 07/29/2018 2:24 PM Number of Addenda: 0 I attest to the content of the Intraoperative Record and orders documented therein, exceptions below {[id number]}
--- NOTE | 2018-07-29 14:48 | GI REPORT ---
Patient Name: Carli Crow Procedure Date: 07/29/2018 2:29 PM Date of : 1980 Admit Type: Inpatient Age: 38 Gender: Female Attending MD: Laury Chanel MD Procedure: Colonoscopy Providers: Laury Chanel MD Referring MD: Vesta Varner Md, Ray Armstrong MD Indications: Hematochezia Medicines: Monitored Anesthesia Care Complications: No immediate complications. Estimated Blood Loss: Estimated blood loss: none. Procedure: Pre-Anesthesia Assessment: - Prior to the procedure, a History and Physical was performed, and patient medications and allergies were reviewed. The patient is competent. The risks and benefits of the procedure and the sedation options and risks were discussed with the patient. All questions were answered and informed consent was obtained. Patient identification and proposed procedure were verified by the physician and the nurse in the procedure room. Mental Status Examination: alert and oriented. Airway Examination: normal oropharyngeal airway and neck mobility. Respiratory Examination: clear to auscultation. CV Examination: normal. ASA Grade Assessment: II - A patient with mild systemic disease. After reviewing the risks and benefits, the patient was deemed in satisfactory condition to undergo the procedure. The anesthesia plan was to use monitored anesthesia care (MAC). Immediately prior to administration of medications, the patient was re-assessed for adequacy to receive sedatives. The heart rate, respiratory rate, oxygen saturations, blood pressure, adequacy of pulmonary ventilation, and response to care were monitored throughout the procedure. The physical status of the patient was re-assessed after the procedure. After I obtained informed consent, the scope was passed under direct vision. Throughout the procedure, the patient's blood pressure, pulse, and oxygen saturations were monitored continuously. The scope was introduced through the anus and advanced to the terminal ileum. The colonoscopy was performed without difficulty. The patient tolerated the procedure well. The terminal ileum, ileocecal valve, appendiceal orifice, and rectum were photographed. The quality of the bowel preparation was fair. Findings: The perianal and digital rectal examinations were normal. The terminal ileum appeared normal. Inflammation was found in a continuous and circumferential pattern from the rectum to the ascending colon. This was graded as Brennan Score 3 (severe, with spontaneous bleeding, ulcerations). Biopsies were taken with a cold forceps for histology. Verification of patient identification for the specimen was done by the physician and nurse using the patient's name and date. The retroflexed view of the distal rectum and anal verge was normal and showed no anal or rectal abnormalities. Impression: - Preparation of the colon was fair. - The examined portion of the ileum was normal. - Severe (Brennan Score 3) pancolitis ulcerative colitis. Biopsied. - The distal rectum and anal verge are normal on retroflexion view. Recommendation: - Return patient to [facility] for ongoing care. - Advance diet as tolerated. - Await pathology results. - IV Steroids now then change to PO and taper slowley over few months. - IV Cipro/Flagyl then change to PO for 7 days. - Step up her therapy from Mesalamine to Biologicals. - Repeat colonoscopy in 1 year to assess disease activity. Laury Chanel MD 07/29/2018 2:47:59 PM This report has been signed electronically. Note Initiated On: 07/29/2018 2:29 PM Number of Addenda: 0 I attest to the content of the Intraoperative Record and orders documented therein, exceptions below {[id number]}
--- NOTE | 2018-07-29 15:23 | Anesthesiology Progress Note ---
Date of Service July 29, 2018 Anesthesia Post Procedure Vital Signs Vital Signs: Temp Pulse Pulse Pulse Resp BP BP 07/29/18 15:16 113 H 18 121/88 07/29/18 15:01 111 H 18 121/89 07/29/18 14:46 36.9 C 122 H 16 123/89 07/29/18 13:51 36.9 C 100 H 18 109/80 07/29/18 11:29 36.8 C 110 H 18 121/83 07/29/18 08:00 112 H 07/29/18 07:32 36.9 C 111 H 18 126/88 07/29/18 03:00 37 C 111 H 18 113/78 07/29/18 00:59 127 H 07/28/18 23:01 37.0 C 110 H 18 123/86 07/28/18 19:27 36.6 C 115 H 16 131/93 07/28/18 17:40 37.0 C 121 H 121 H 18 136/95 136/95 07/28/18 17:10 37.0 C 124 H 18 129/86 07/28/18 17:07 36.7 C 110 H 18 136/94 07/28/18 16:40 36.8 C 117 H 18 132/93 07/28/18 16:36 106 H 07/28/18 16:25 36.8 C 115 H 18 133/93 07/28/18 16:01 36.8 C 125 H 18 137/87 Pulse Ox 07/29/18 15:16 96 07/29/18 15:01 97 07/29/18 14:46 96 07/29/18 13:51 98 07/29/18 11:29 97 07/29/18 08:00 07/29/18 07:32 97 07/29/18 03:00 97 07/29/18 00:59 07/28/18 23:01 95 07/28/18 19:27 100 07/28/18 17:40 99 07/28/18 17:10 97 07/28/18 17:07 96 07/28/18 16:40 96 07/28/18 16:36 07/28/18 16:25 95 07/28/18 16:01 99 Pain Intensity Head: Pain Intensity: 3 Notes Mental Status: alert / awake / arousable Patient Amnestic to Procedure: Yes Nausea / Vomiting: adequately controlled Pain: adequately controlled Airway Patency, RR, SpO2: stable & adequate BP & HR: stable & adequate Hydration State: stable & adequate Anesthetic Complications: no major complications apparent and Pt Satisfied with anesthetic care
[2018-07-29] MEDS: CIPROFLOXACIN 400 MG/200 ML BAG IV SCH (16:08)
[2018-07-29] MEDS: metroNIDAZOLE 500 MG/100 ML BAG IV SCH ×2 (16:08→23:40)
--- NOTE | 2018-07-29 17:46 | Hospitalist Progress Note ---
Date of Service July 29, 2018 Assessment & Plan (1) Anemia: (2) Abnormal EKG: (3) Elevated troponin: (4) History of Clostridium difficile infection: (5) Ulcerative colitis: 38yo C female with history of recently diagnosed UC on Mesalamine, C. diff colitis in May 2018 s/p treatment with resolution of symptoms admitted because of anemia Anemia: possible iron deficiency as well Hemoglobin stable and improved after transfuse 1u PRBCs from 9-9.7 GI appreciated, EGD and colonoscopy done: EGD unremarkable, colonoscopy shows: severe (Brennan Score 3) pancolitis ulcerative colitis, Advance diet as tolerated, IV Steroids now then change to PO and taper slowley, IV Cipro/Flagyl then change to PO for 7 days, f/u with GI and step up her therapy from Mesalamine to Biologicals. Repeat colonoscopy in 1 year to assess disease activity. Abnormal EKG, mild elevated troponin, upon admission: Possibly secondary to demand ischemia in setting of anemia, f/u Echo History of Clostridium difficile infection: Repeat C. diff studies and stool cultures Migraine, neuro consulted, Advance diet and, increase activity, possible discharge home soon Subjective Episode of migraine associated nausea Otherwise doing okay No shortness of breath Denies fever and chills Review of Systems Constitutional: negative weakness, or fatigue Respiratory: no cough, sputum, wheezing, or dyspnea on exertion Cardiac: No chest pain, No orthopnea, Abdomen: Denies abdominal pain Musculoskeletal: No joint pain, No muscle pain, No swelling, : No dysuria, No urinary frequency, No incontinence, No hematuria Neurologic: No paralysis, No weakness, No numbness/tingling, No vertigo, No balance problems Skin: No rash, No itch, No new/changing skin lesions, No color change, No bleeding Physical Exam Vital Signs (Past 24 Hours): Last Vital Signs Temp 36.9 C 07/29/18 16:00 Pulse 108 H 07/29/18 16:00 Resp 18 07/29/18 16:00 BP 121/81 07/29/18 16:00 Pulse Ox 96 07/29/18 15:16 Physical Exam: General: no acute distress and stated age Head: normocephalic, no masses, lesions, tenderness or abnormalities HEENT: conjunctiva are pink and non-injected, sclera clear Neck: supple, no adenopathy, no bruits, normal jugular venous pulse, no hepatojugular reflux Chest: normal shape and normal respiratory effort Lungs: clear to auscultation and percussion Cardiac Exam: - regular rate & rhythm, no murmurs gallops or rubs - normal S1, normal S2 and S4 is present. No S3. Abdomen: abdomen soft, non-tender, no abnormal masses and no hepatosplenomegaly Extremities: no edema and no cyanosis Neuro: grossly normal exam Results & Data Laboratory Results Laboratory Results - last 24 hr 07/28/18 07/28/18 07/28/18 09:33 20:00 20:06 WBC RBC Hgb Hct MCV MCH MCHC RDW Std Deviation RDW Coeff of Elayne Plt Count MPV Immature Gran % (Auto) Neut % (Auto) Lymph % (Auto) [place] % (Auto) Eos % (Auto) Baso % (Auto) Immature Gran # (Auto) Neut # (Auto) Lymph # (Auto) [place] # (Auto) Eos # (Auto) Baso # (Auto) Absolute Nucleated RBC Nucleated RBC % (auto) Stomatocytes ESR Sodium Potassium Chloride Carbon Dioxide Anion Gap BUN Creatinine Est Cr Clr Drug Dosing Est GFR ( Amer) Est GFR (Non-Af Amer) BUN/Creatinine Ratio Glucose Calcium C-Reactive Protein Stool Occult Bld Scrn Negative Stl C. diff Tox B Gene Positive Cdiff Gene A Stl C.difficile Tox A&B Negative Cdiff Toxin Crossmatch See Detail 07/29/18 07/29/18 07/29/18 05:14 05:14 05:14 WBC 9.47 RBC 3.64 L Hgb 9.7 L Hct 30.5 L MCV 83.8 MCH 26.6 MCHC 31.8 L RDW Std Deviation 51.5 H RDW Coeff of Elayne 16.8 H Plt Count 569 H MPV 8.1 Immature Gran % (Auto) 0.5 Neut % (Auto) 51.7 Lymph % (Auto) 29.9 [place] % (Auto) 15.6 Eos % (Auto) 2.0 Baso % (Auto) 0.3 Immature Gran # (Auto) 0.05 H Neut # (Auto) 4.89 Lymph # (Auto) 2.83 [place] # (Auto) 1.48 H Eos # (Auto) 0.19 Baso # (Auto) 0.03 Absolute Nucleated RBC 0.02 H Nucleated RBC % (auto) 0.2 Stomatocytes 1+ ESR > 90 H Sodium 137 Potassium 3.3 L Chloride 104 Carbon Dioxide 28 Anion Gap 5.0 BUN 7 D Creatinine 0.57 L Est Cr Clr Drug Dosing 105.4 Est GFR ( Amer) 135.3 Est GFR (Non-Af Amer) 116.8 BUN/Creatinine Ratio 12.7 Glucose 101 H Calcium 8.6 C-Reactive Protein 16.30 H Stool Occult Bld Scrn Stl C. diff Tox B Gene Stl C.difficile Tox A&B Crossmatch Microbiology 07/28/18 20:00 Stool Shiga Toxin Test - Preliminary 07/28/18 20:00 Stool Stool Culture - Preliminary No Salmonella isolated to date, No Shigella isolated to date, No Campylobacter jejuni isolated to date. (1) Anemia Anemia type: unspecified type Qualified Code(s): D64.9 - Anemia, unspecified
[2018-07-29 18:52] LABS: Albumin Level 2.2 gm/dl (3.4-5.0); BUN Creatinine Ratio 12.2 (10-20); Creatinine Clr Calc Pharmacy 94.7 ml/min; Potassium 3.1 mmol/L (3.5-5.1)
[2018-07-29 18:54] LABS: Albumin Globulin Ratio 0.4 (0.9-2); Bilirubin,Total 0.3 mg/dl (0.2-1); Globulin 5.1 gm/dl (2.5-4.0); Total Protein 7.3 gm/dl (6.4-8.2)
[2018-07-29] MEDS: methylPREDNISolone 20 MG in SYRINGE 0 ML IV SCH (21:12)
[2018-07-29] MEDS ORDERED: SUMAtriptan succinate 25 MG TAB PO ONE (21:54)
[2018-07-30] MEDS: CIPROFLOXACIN 400 MG/200 ML BAG IV SCH (02:58)
[2018-07-30] MEDS: methylPREDNISolone 20 MG in SYRINGE 0 ML IV SCH (05:20)
[2018-07-30 07:17] LABS: Magnesium 2.3 mg/dl (1.8-2.4); Phosphorus 5.4 mg/dl (2.5-4.9)
[2018-07-30] MEDS ORDERED: MESALAMINE 1.2 GM PO SCH (09:00)
[2018-07-30] MEDS: metroNIDAZOLE 500 MG/100 ML BAG IV SCH (09:01)
[2018-07-30] MEDS: ACETAMINOPHEN 500 MG TAB PO PRN (09:02)
[2018-07-30] MEDS: ARMOUR THYROID 30 MG TAB PO SCH (09:03)
[2018-07-30] MEDS: VERAPAMIL HCL 120 MG TABCR PO SCH (09:04)
[2018-07-30] MEDS: DICYCLOMINE HCL 10 MG CAP PO SCH ×2 (09:04→15:32)
[2018-07-30] MEDS: MESALAMINE 400 MG CAPDR PO SCH ×2 (09:05→15:33)
[2018-07-30] MEDS: DULOXETINE HCL 60 MG CAP PO SCH (09:05)
[2018-07-30 09:06] LABS: Hematocrit (blood only) 32.9 % (37-47); Hemoglobin 10.7 g/dL (12.0-16.0); Mean Corpuscular Volume 84.4 fL (80-100); Platelet Count 673 K/uL (130-400); RDW Coefficient of Variation 16.4 % (11.5-14.5); RDW Standard Deviation 50.2 fL (36.4-46.3); White Blood Count 9.98 K/uL (4.8-10.8)
[2018-07-30 09:07] LABS: Mean Corpuscular Hgb Conc 32.5 g/dL (32-36)
[2018-07-30 09:42] LABS: BUN Creatinine Ratio 12.1 (10-20); Calcium 9.4 mg/dl (8.5-10.1); Creatinine Clr Calc Pharmacy 82.6 ml/min; Est GFR (African American) 122.3; Est GFR (Non-African American) 105.5; Magnesium 2.3 mg/dl (1.8-2.4); Phosphorus 3.7 mg/dl (2.5-4.9); Potassium 3.7 mmol/L (3.5-5.1); Troponin I 0.074 ng/ml (0-0.045)
--- NOTE | 2018-07-30 10:18 | Progress Note ---
Date of Service July 30, 2018 Subjective Patient was seen and examined today, feels very well, vital reviewed and stable. Denies any abdominal pain and no rectal bleeding. Colonoscopy yesterday showed severe Pancolitis due to UC. Started on ABx and Steroids. On exam abdomen is soft. ESR and CRP elevated. UC with acute flare, possibly NSIADs related or nonresponding to Mesalamine. Recommend: Diet as tolerated. Can change to PO Prednisone 40 mg upon discharge for induction of remession. PO Cipro and Flagyl for 7 days. Avoid NSAIDs. Plan to start Biological therapy as OP. Please recall GI if any questions or concerns. Physical Exam Vital Signs (Past 24 Hours): Last Vital Signs Temp 36.7 C 07/30/18 06:57 Pulse 89 07/30/18 06:57 Resp 18 07/30/18 06:57 BP 120/73 07/30/18 06:57 Pulse Ox 98 07/30/18 06:57
--- NOTE | 2018-07-30 10:35 | Hospitalist Progress Note ---
Date of Service July 30, 2018 Assessment & Plan (1) Ulcerative colitis: * Follows with GI as an outpatient * Underwent colonoscopy yesterday and found to have pancolitis due to ulcerative colitis * Started on IV methylprednisolone and ciprofloxacin and metronidazole on admission * Mesalamine and Bentyl ordered by GI * No bowel movement since GI prep * No further bleeding from the rectum * Abdominal pain improved * Change to p.o. prednisone 40 mg daily upon discharge * Changed to Cipro and Flagyl p.o. for 7 more days on discharge and follow-up with GI clinic * Plan is to start on biologicals as an outpatient (2) Elevated troponin: * Patient continues with slight elevation of troponin but it is trending downward * Chronic changes to EKG * Cardiology consulted and feel that this is probably a chronic issue * No further workup inpatient per cardiology * Consider outpatient cardiac stress test when patient is discharged in stable from her ulcerative colitis * No current chest pain or tightness. Oxygenating well on room air cardiogram completed yesterday with left ventricular systolic function normal. LVEF 55- 60% there is mild to moderate mitral regurgitation. No wall motion irregularities (3) History of Clostridium difficile infection: * No further diarrhea or bloody stool * No need for treatment at this time per GI -most likely colonized * Outpatient follow-up with GI (4) Electrolyte imbalance: * Potassium is been corrected is now 3.7 (up from 3.1) * Phosphorus has been corrected and is now 3.7 (down from 5.4) * Magnesium is now 2.3 (up from 1.9) * Follow outpatient labs with PCP (5) Migraine: * Has used Imitrex and Maxalt at home. These have worked but cause lethargy * Previous Imitrex on admission did help but again caused lethargy here in the hospital * Currently pain is 4 out of 5 and improved significantly with acetaminophen * Will ask Dr. Ibarra to see patient for possible manipulation prior to treatment with medications * Follows with neurology as an outpatient -outpatient follow-up as needed (6) Anemia: * Normocytic -MCV 84.4 * Multifactorial to ulcerative colitis and chronic disease * Hemoglobin today is 10.7 * No further rectal bleeding * Follow outpatient labs (7) DVT prophylaxis: * No chemical prophylaxis secondary to anemia and GI bleed with ulcerative colitis * Ambulate as tolerated * Anticipated discharge today or tomorrow Please refer to Dr. Ibarra's addendum for further recommendations Supervising Physician Co-Signing Physician Notes I personally examined the patient and verified all beverly points of history and exam, discussed case, and agree with decision making with Huber MALLOY headache - notes that it's been worse now/recently than before. goes up from back of head and around. in terms of IBD, doing better, safe/stable for home vitals noted nad breathing unlabored no pallor or icterus. ost/msk - L>R bilateral suboccipitals high tone/tender/decreased ROM - inhibitory pressure and unwinding - improved. pt noted improvement in headache and tolerated well IBD flare - stable for home as above headache - appearing heavily tension component at this point. OMT helped, consider outpt ongoing OMT somatic dysfunction cervical - OMT as above Subjective Attending: Dr. Philippe The patient a 38-year-old with a flareup of ulcerative colitis who was admitted 2 days ago. She underwent colonoscopy yesterday showed severe pancolitis and confirmed the flareup. She is been placed on IV methylprednisolone as well as antibiotics and has been followed with GI. Patient denies any abdominal pain today or rectal bleeding. She has had no bowel movement since her colonoscopy and since her prep. She has occasional palpitations but this is not new. She has no chest pain or tightness. She does have some pain at her manubrium with cough. She has no nausea or vomiting. No fever or chills. She has no other acute complaints this morning. Physical Exam Vital Signs (Past 24 Hours): Last Vital Signs Temp 36.7 C 07/30/18 06:57 Pulse 89 07/30/18 06:57 Resp 18 07/30/18 06:57 BP 120/73 07/30/18 06:57 Pulse Ox 98 07/30/18 06:57 Physical Exam: GENERAL : No acute distress. Pleasant sitting up in bed EYES: No icterus, gaze conjugate NOSE: No evidence of epistaxis MOUTH: No lesions or candidiasis. Mucosa moist NECK: Supple LUNGS: CTA B/L, no wheezes, rales or rhonchi HEART: Regular, rate controlled ABDOMEN: Soft, NT, ND, BS Present. Very minimal tenderness with deep palpation and rebound. EXTREMITIES: No LE edema, pedal pulses intact NEURO: A&OX3 Results & Data Laboratory Results Laboratory Tests 07/14/18 07/14/1807/15/19 16:50 23:58 07:51 WBC Hgb Potassium BUN Creatinine Phosphorus Magnesium Troponin I 0.125 H* 0.092 H* 0.085 H* 07/28/18 07/28/18 07/29/18 09:30 14:38 05:14 WBC Hgb Potassium 3.6 3.3 L BUN Creatinine Phosphorus Magnesium Troponin I 0.084 H* 0.086 H* 07/29/18 07/30/18 07/30/18 18:04 05:54 08:55 WBC 9.98 Hgb 10.7 L Potassium 3.1 L BUN Creatinine Phosphorus 5.4 H D Magnesium Troponin I 07/30/18 08:55 WBC Hgb Potassium 3.7 D BUN 9 Creatinine 0.72 Phosphorus 3.7 D Magnesium 2.3 Troponin I 0.074 H* Diagnostic Findings XR chest 1V portable CLINICAL HISTORY: Pt c/o chest pain COMPARISON STUDY: 07/14/2018 FINDINGS: The bones soft tissues and hemidiaphragms are normal. The cardiomediastinal silhouette is normal. The lungs are clear. The pulmonary vasculature is normal. IMPRESSION: Negative chest. Electronically signed by: Dilan Olivier M.D. 07/28/2018 9:[address] ANGIOGRAM OF THE CHEST CLINICAL HISTORY: Atypical chest pain. COMPARISON STUDY: Chest x-ray dated 07/14/2018. TECHNIQUE: Following the IV administration of 99 cc of Optiray 320, CT angiogram of the chest was performed from the upper abdomen to the thoracic inlet utilizing the pulmonary embolus protocol. Images are reviewed in the axial, sagittal, and coronal planes. 3-D MIPS images are created and assessed. IV contrast was administered without complication. A dose lowering technique was utilized adhering to the principles of ALARA. CT DOSE: 173.58 mGy.cm FINDINGS: Thyroid: Imaged portions of the thyroid gland are normal in size and attenuation. Thoracic aorta: The thoracic aorta is normal in caliber and demonstrates standard 3-vessel arch anatomy. No dissection is seen. Pulmonary vasculature: The pulmonary trunk is normal in caliber. There are no filling defects identified in main, lobar, or segmental pulmonary branches to suggest pulmonary embolus. Heart: The heart is normal in size and without pericardial effusion. Lungs and pleural spaces: The lungs and pleural spaces are clear noting dependent hypoventilatory change. The trachea and central airways are patent. Mediastinum: There is no mediastinal lymphadenopathy. Yasmeen: Clear. Axillae: There is no axillary lymphadenopathy. Upper abdomen: Partially visualized upper abdominal viscera is within normal guevara its. Skeletal structures: No lytic or blastic bony lesions are seen. Postoperative change is suggested in the left shoulder. IMPRESSION: 1. There is no evidence of pulmonary embolus in the main, lobar, or segmental pulmonary arteries. 2. The lungs are clear. Electronically signed by: Esa Vicente M.D. 07/14/2018 7:51 PM ON: Negative chest. Electronically signed by: Dilan Olivier M.D. 07/28/2018 9:45 AM (1) Anemia Anemia type: unspecified type Qualified Code(s): D64.9 - Anemia, unspecified (2) Migraine Intractability: not intractable Migraine type: other Status migrainosus presence: without status migrainosus Qualified Code(s): G43.809 - Other migraine, not intractable, without status migrainosus
--- NOTE | 2018-07-30 11:29 | Neurology Consultation ---
Date of Consultation July 30, 2018 Assessment & Plan (1) Migraine: This patient has a history of episodic migraine that began as a teenager. Her migraines have been increased in frequency recently, probably related to her acute medical condition. She has been receiving methylprednisolone, I believe as treatment for her colitis. This treatment should be helpful in treating her current migraine as well. Other treatment options for her, if necessary, during this hospitalization would include either Imitrex tablets or injections and antiemetics as necessary. I think it would also be reasonable to restart a migraine preventive medication such as topiramate. Would start with 25 milligr ams at bedtime. I also discussed potentially restarting her Ajovy for migraine prevention. This treatment would need to be coordinated as an outpatient and she may follow up in the Neurology Clinic as scheduled for this purpose. No further immediate recommendations. History of Present Illness Reason for Consultation: Migraines Requesting Physician: Benny Sinclair MD Attending Physician: Benny Sinclair MD, PhD, [facility] History of Present Illness The patient is a 38-year-old female who was admitted 2 days ago for further evaluation and management emesis, chest pain, palpitations, cough, and shortness of breath. She was recently treated for anemia and C diff infection in the context of ulcerative colitis. She has been seen by Gastroenterology and has recently undergone colonoscopy which confirms severe pancolitis. She has also been evaluated by Cardiology for some nonspecific abnormalities on an EKG and elevated troponin. Neurology has been consulted for further assistance in managing this patient's migraines which are a chronic problem. She indicates that she has been following with Dr. Fofana, a neurologist in [place]. She was given a prescription for Ajovy for migraine prevention in April. She only received 1 injection of this medication due to some difficulty with insurance authorization and coordinating this issue with her neurologist's office. She d id perceive a modest reduction in her migraines after a few weeks, however. Unfortunately, her migraines have escalated in frequency again. The patient indicates that she began experiencing intermittent migraine headache as a teenager. She does not recall ever having a menstrual associated migraine pattern. Her migraines are typically global and have a thumping quality. They are associated with nausea and light sensitivity. She experiences a rare visual aura. She has been taking Axert for acute migraine treatment and typically find this medication helpful. Sumatriptan and Maxalt have also work for her although these medications tend to produce some somnolence. She recalls previous trials of Depakote and topiramate. She has a history of tachycardia and palpitations and is prescribed verapamil. She also has a prescription for an albuterol inhaler. This patient has an appointment in our office for further evaluation and management of her migraines next month. Allergies Allergy/AdvReac Type Severity Reaction Status Date / Time Penicillins Allergy Unknown rash Verified 07/28/18 09:46 azithromycin [From Zithromax] Allergy Hives Verified 07/28/18 09:46 OTC COUGH MEDICINES Allergy Unknown hives Uncoded 07/28/18 09:46 Home Medications Home Medications Medication Instructions Recorded Confirmed Type almotriptan malate 12.5 mg PO UD PRN 05/23/18 07/28/18 History acetaminophen 500 mg PO Q6H PRN 07/14/18 07/28/18 History albuterol sulfate 1 - 2 puff INHALATION Q6H PRN 07/14/18 07/28/18 History clonazepam 0.5 mg PO Q6H PRN 07/14/18 07/28/18 History duloxetine 60 mg PO QAM 07/14/18 07/28/18 History mesalamine [Lialda] 4.8 g PO HS 07/14/18 07/28/18 History thyroid (pork) [[place] Thyroid] 90 mg PO DAILY 07/14/18 07/28/18 History zemhekb-yscruaavozpnx-ttnixdcw 1 tab PO Q6H PRN 07/28/18 07/28/18 History [Excedrin Extra Strength] benzonatate 100 mg PO TID PRN 07/28/18 07/28/18 History dicyclomine 10 mg PO TID 07/28/18 07/28/18 History verapamil 120 mg PO QAM 07/28/18 07/28/18 History Patient History Medical History Elevated troponin Anxiety (Chronic) Hypothyroid (Chronic) Migraines (Chronic) Ulcerative colitis (Chronic) H/O lipoma Sacroiliitis Surgical History History of colonoscopy H/O rotator cuff surgery bilateral Family History Mother Hypothyroid Paget disease of bone Father Hypothyroid Hypertension Aunt Ulcerative colitis Brother Crohn's disease Sister Graves disease Social History Preferred Language: Bulgarian Communication Ability: Effective Lump 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 Required: No Beliefs That Will Affect Care: None marital status: marital status details: no kids; currently in relationship Current Living Situation: Spouse current occupational status: employed 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 [employer] Other Information That Helps Us Care for You: No Feels Safe at Home: Yes Safety Concerns: Feels Safe At This Time Smoking Status: Never smoker Hx Alcohol Use: Yes Hx Substance Use: No Review of Systems Constitutional: no fever and no chills Eyes: no blind spots and no diplopia Ear, Nose, Mouth, Throat: no hearing loss Respiratory: + cough and + dyspnea Cardiovascular: + palpitations Gastrointestinal: + nausea Genitourinary (Female): no dysuria and no urinary incontinence Musculoskeletal: no myalgia Integumentary: no rash and no lesions Neurologic: as per Subjective / HPI; no gait abnormality and no localized weakness Psychiatric: no depression and no anxiety Hematologic / Lymphatic: no easy bleeding and no easy bruising Physical Exam Vital Signs (Past 24 Hours): Last Vital Signs Temp 36.7 C 07/30/18 06:57 Pulse 89 07/30/18 06:57 Resp 18 07/30/18 06:57 BP 120/73 07/30/18 06:57 Pulse Ox 98 07/30/18 06:57 Physical Exam: The patient is a well-developed well-nourished adult female. She is sitting up comfortably in bed in no acute distress. She is alert and fully oriented. Recent and remote memory intact. Attention and concentration are normal. Patient exhibits a normal spontaneous speech pattern as well as an age-appropriate fund of knowledge. Visual jones full to confrontation. Pupils equal round react to light and accommodation. Eye movements normal. There is no nystagmus. Facial sensation intact. There is no facial weakness or droop. Hearing intact. Palate elevates to midline. Shoulder shrug intact. Tongue protrudes to midline. Sensation intact to all modalities in all 4 limbs. Deep tendon reflexes are intact and symmetrical for the upper and lower limbs. There is no dysdiadochokinesia or dysmetria of [id number] or heel to blount bilaterally. Ophthalmoscopic examination reveals normal-appearing optic discs and posterior segments. No papilledema or hemorrhages. Carotid pulses normal bilaterally, no bruits to auscultation. Gait and station normal. Patient ex hibits normal muscle strength and tone for all 4 limbs. No atrophy. No abnormal movements observed. Results & Data Laboratory Results Today's labs reviewed. WBC 9.98, hemoglobin 10.7, platelet count 673, ESR greater than 90, sodium 137, potassium 3.7, BUN 9, creatinine 0.72, glucose 168, magnesium 2.3 Diagnostic Findings A chest x-ray completed July 28, 2018 was unremarkable. Electrocardiogram completed today revealed a normal sinus rhythm. There is a prolonged QT interval as well as a T-wave abnormality. Heart rate 91 beats per minute. (1) Migraine Migraine type: other Status migrainosus presence: without status migrainosus Intractability: not intractable Qualified Code(s): G43.809 - Other migraine, not intractable, without status migrainosus
[2018-07-30] MEDS ORDERED: MESALAMINE 400 MG CAPDR PO SCH (15:15)
[2018-07-30] MEDS ORDERED: TOPIRAMATE 25 MG TAB PO SCH (21:00)
--- NOTE | 2018-08-06 17:49 | Discharge Summary ---
Date of Service August 06, 2018 Admission HPI Per Admitting Provider 38yo C female with history of recently diagnosed UC on Mesalamine, C. diff colitis in May 2018 s/p treatment with resolution of symptoms. Patient was admitted 2 weeks ago with complaints of weakness/fatigue/FALL. She was found to be anemic at that time with Hg of 8.1, Hct of 26.5. Also with mildly elevated troponin. She was transfused with 2u PRBC and discharged home on 07/15/18. She reports feeling well for 2-3 days after returning home. However, she presents today with similar symptoms of dizziness, lightheadedness, nausea/vomiting, lethargy. Also with headache which she has been taking Excedrin for q 2 hours. She is no longer having diarrhea. Her stools are soft, 1-3 per day. She reports some mild rectal bleeding. She has some abdominal pain preceding bowel movement that is usually relieved with BM. Also wtih BMs at night. ER Course: Tylenol, Benadryl, Phenergan, NSS Principal Diagnosis IBD Discharge Data Allergies Allergy/AdvReac Type Severity Reaction Status Date / Time Penicillins Allergy Unknown rash Verified 07/28/18 09:46 azithromycin [From Zithromax] Allergy Hives Verified 07/28/18 09:46 OTC COUGH MEDICINES Allergy Unknown hives Uncoded 07/28/18 09:46 Consultations 07/28/18 10:17 ED Decision to Admit Stat 07/28/18 12:17 Consult Cardiology Routine 07/28/18 14:29 Consult Cardiology Routine Consult Gastroenterology Routine 07/29/18 11:24 Consult Neurology Routine Procedures Performed Operation Date: 07/29/18 08:30 Actual Procedures p Colonoscopy Biopsy Cytology - Laury Chanel MD s EGD Biopsy Cytology - Laury Chanel MD Hospital Course (1) Ulcerative colitis: 38yo C female with history of recently diagnosed UC on Mesalamine, C. diff colitis in May 2018 s/p treatment with resolution of symptoms admitted because of anemia Anemia: possible iron deficiency as well Hemoglobin stable and improved after transfuse 1u PRBCs from 9-9.7 GI appreciated, EGD and colonoscopy done: EGD unremarkable, colonoscopy shows: severe (Brennan Score 3) pancolitis ulcerative colitis, Advance diet as tolerated, IV Steroids changed to PO and taper slowly, IV Cipro/Flagyl then changed to PO for 7 days, f/u with GI and step up her therapy from Mesalamine to Biologicals. Repeat colonoscopy in 1 year to assess disease activity. Abnormal EKG, mild elevated troponin, upon admission: no [place], echo without wall motion abnormalities History of Clostridium difficile infection Migraine, neuro consulted, also had significant tension headache which improved w OMT Advance diet and, increase activity, possible discharge home soon (2) Elevated troponin: As above. -Appreciate cardiology input (3) History of Clostridium difficile infection: (4) Electrolyte imbalance: (5) Migraine: (6) Anemia: Patient with normochromic/normocytic anemia, Hg of 9, Hct of 28.7. Symptoms of FALL, fatigue, dizziness. Prior workup of anemia reveals low Fe of 11, Ferritin normal at 54, TIBC low at 213. Anemia of chronic disease, possible iron deficiency as well -Transfused 1u PRBCs -Monitor CBC as outpt (7) DVT prophylaxis: Total Time Total Time Spent Total Time Spent (In Minutes): >30 Discharge Plan Discharge Items Patient Disposition: Home - Self-Care Reason For Visit: ANEMIA, SOB Discharge Diagnosis: Ulcerative Colitis flare. Pancolitis Condition: Good Discharge Goals: Improve disease control and Therapeutic intervention Specific Goals: Consider acupuncture for migraine headaches - Dr. Michele [phone] Activity: As commented below Activity Comment: Rest today. Increase activity gradually as tolerated Lifting: Gradually increase as tolerated Bathing: No limitations Sexual Activity: When tolerated Exercise/Sports: Gradually increase as tolerated Driving/Machine Use: Resume 1 day after discharge Driving/Machine Use Comment: Do not drive if using [employer] Comment: As tolerated Non-emergency contact: Primary Care Provider Call non-emergency contact if: you have any medication questions, your pain is unusual for you and your temperature is above 101 Follow-up/Referrals: Stephie Perez MD [Primary Care Provider] - Diet: See below Diet Comment: Per gastroenterology instructions Addtl Provider Instructions: Electrolytes are repleted and within normal limits at the time of discharge. In the event of increased palpitations or fast heart rate, please call your primary care provider. Continue all medications until adjusted by gastroenterology. Do not return to work for at least 7 days. Due to recent history of Clostridium difficile, continue to practice good handw ashing technique with all family members at home. Prescriptions: New Delzicol 400 mg Capsule (With Del Rel Tablets) 800 mg PO TID Qty: 60 RF: 0 sumatriptan succinate 25 mg tablet See Rx Instructions .ROUTE .COMPLEX Qty: 20 RF: 0 prednisone 20 mg tablet 40 mg PO DAILY 30 Days Qty: 60 RF: 0 ciprofloxacin HCl 500 mg tablet 500 mg PO Q12H Qty: 14 RF: 0 Continued clonazepam 0.5 mg tablet 0.5 mg PO Q6H PRN (Reason: Anxiety) RF: 0 albuterol sulfate 90 mcg/actuation HFA aerosol inhaler 1 - 2 puff Inhalation Q6H PRN (Reason: Wheezing or Cough) RF: 0 duloxetine 60 mg capsule,delayed release(DR/EC) 60 mg PO QAM RF: 0 thyroid (pork) [[place] Thyroid] 90 mg tablet 90 mg PO DAILY RF: 0 acetaminophen 500 mg Tablet 500 mg PO Q6H PRN (Reason: Pain) RF: 0 almotriptan malate 12.5 mg Tablet 12.5 mg PO UD PRN (Reason: Migraine Headache) RF: 0 verapamil 120 mg tablet extended release 120 mg PO QAM RF: 0 benzonatate 100 mg capsule 100 mg PO TID PRN (Reason: Cough) RF: 0 dicyclomine 10 mg capsule 10 mg PO TID RF: 0 Discontinued mesalamine [Lialda] 1.2 gram tablet,delayed release (DR/EC) 4.8 g PO HS RF: 0 Excedrin Extra Strength 250-250-65 mg Tablet 1 tab PO Q6H PRN (Reason: Pain) RF: 0 Stand-Alone Forms: [facility], Work/School Release (Inpt) Krayrn/Other Patient Handouts: Acupuncture Discharge Orders: Discharge Order (Routine); Ordered 07/30/18 Ordered By: Esa Toussaint Admission Data Admit Date/Time: 07/28/18 12:17 Attending Provider: Benny Sinclair Admit Provider: Nicky Vazquez Primary Care Provider: Stephie Perez Other Providers: Nicky Vazquez ; Murali Koo ; Jose Friedman ; Levi Perez ; Daren Dumont ; Brendan Sanchez ; Otilio Clarke Jr ; Bari Best ; Kelsey Recio ; Maritza Lopez ; Tarun Bateman ; Tarun Larsen ; Yovany Nguyen ; Adonay Knapp ; Elizabeth Sandoval ; Misa Duque ; Laury Chanel ; Vesta Varner ; Ang Andrew Service: Telemetry Medical Other Interventions: Discharge Summary Assessment (RN) Last Done: 07/30/18 15:20 Pending Studies at Discharge: Yes Studies:: Pathology from colonoscopy. DC Date/Time DO NOT enter until pt leaves facility: 07/30/18 16:30
== END 2018-07-30 16:30 | disposition home or self-care (01) | DRG 386 ==
LOC: ED 08:38 → 2W 12:17 → SUATTDRO 12:17 → 2W 14:08
DX: I24.8 Other forms of acute ischemic heart disease; F41.9 Anxiety disorder, unspecified; K51.018 Ulcerative (chronic) pancolitis with other complication; R00.2 Palpitations; D63.8 Anemia in other chronic diseases classified elsewhere; D50.9 Iron deficiency anemia, unspecified; R79.89 Other specified abnormal findings of blood chemistry; I34.0 Nonrheumatic mitral (valve) insufficiency; Z88.0 Allergy status to penicillin; E03.9 Hypothyroidism, unspecified; G43.909 Migraine, unspecified, not intractable, without status migrainosus; I07.1 Rheumatic tricuspid insufficiency

== ENCOUNTER 2019-01-30 20:20 | Inpatient (IN) ==
[2019-01-30] MEDS ORDERED: SODIUM CHLORIDE 0.9% 1000ML 1,000 ML IV SCH (23:00)
[2019-01-30 23:21] LABS: Basophils # (auto) 0.04 K/uL (0-0.2); Basophils % (auto) 0.5 %; Eosinophils # (auto) 0.27 K/uL (0-0.5); Eosinophils % (auto) 3.5 %; Hematocrit (blood only) 34.6 % (37-47); Hemoglobin 11.7 g/dL (12.0-16.0); Immature Granulocytes # (auto) 0.01 K/uL (0.00-0.02); Immature Granulocytes % (auto) 0.1 %; Lymphocytes # (auto) 3.47 K/uL (1.2-3.4); Lymphocytes % (auto) 44.7 %; Mean Corpuscular Hemoglobin 30.5 pg (25-34); Mean Corpuscular Hgb Conc 33.8 g/dL (32-36); Mean Corpuscular Volume 90.1 fL (80-100); Mean Platelet Volume 9.5 fL (7.4-10.4); Monocytes # (auto) 0.72 K/uL (0.11-0.59); Monocytes % (auto) 9.3 %; Neutrophils # (auto) 3.26 K/uL (1.4-6.5); Neutrophils % (auto) 41.9 %; Platelet Count 258 K/uL (130-400); RDW Coefficient of Variation 13.9 % (11.5-14.5); RDW Standard Deviation 46.4 fL (36.4-46.3); Red Blood Count 3.84 M/uL (4.2-5.4); White Blood Count 7.77 K/uL (4.8-10.8)
[2019-01-30 23:31] LABS: Partial Thromboplastin Time 26.5 Seconds (21.0-31.0)
[2019-01-30 23:42] LABS: Albumin Level 3.4 gm/dl (3.4-5.0); BUN Creatinine Ratio 21.7 (10-20); Calcium 8.4 mg/dl (8.5-10.1); Creatinine Clr Calc Pharmacy 71.8 ml/min; Est GFR (African American) 95.9; Est GFR (Non-African American) 82.8; Potassium 3.5 mmol/L (3.5-5.1)
[2019-01-30 23:45] LABS: Albumin Globulin Ratio 0.9 (0.9-2); Bilirubin,Total 0.5 mg/dl (0.2-1); Globulin 3.7 gm/dl (2.5-4.0); Total Protein 7.1 gm/dl (6.4-8.2)
[2019-01-31] MEDS ORDERED: SODIUM CHLORIDE 0.9% 250 ML IV PRN ×2 (00:24→21:40)
--- NOTE | 2019-01-31 01:15 | History & Physical Report ---
Date of Service January 31, 2019 Assessment & Plan (1) Bright red blood per rectum: Ms. Crow is a 38-year-old female with a past medical history of ulcerative colitis, Danielle's thyroiditis, and anxiety who presents to the emergency department due to right red blood per rectum, beginning at approximately 8 this evening. ED Course: 1L normal saline -Admit to med/surg with telemetry monitoring -GI bleed likely related to recent colonoscopy -KUB WNL -no coagulopathy noted -GI consulted, recommendations appreciated -Patient continues to have bloody bowel movements, however remains hemodynamically stable -Hemoglobin dropped from 13.2 earlier this month to 11.7 today, will recheck H&H q6h -Type and screen ordered, with 2 units of PRBCs on hold -N.p.o. with IV maintenance fluids at 100 mLs/hr Ulcerative colitis -Patient was told today that her UC was in remission -Follows with Dr. Garay -Patient takes Humira and mesalamine (non-formulary) Danielle's thyroiditis -Continue [place] Thyroid Anxiety -Continue home duloxetine and PRN clonazepam CODE STATUS: Full DVT prophylaxis: Contraindicated in the setting of GI bleed Disposition: Admit to med/surg with telemetry monitoring (2) Status post colonoscopy: (3) Ulcerative colitis: (4) Danielle's thyroiditis: (5) Anxiety: (6) Anemia: History of Present Illness Chief Complaint: GI bleed Primary Care Provider: Stephie Perez MD Ms. Crow is a 38-year-old female with a past medical history of ulcerative colitis, Danielle's thyroiditis, and anxiety who presents to the emergency department due to right red blood per rectum, beginning at approximately 8 this evening. The patient reports that she was diagnosed with ulcerative colitis 1 year ago, and follows with Dr. Garay. She states that she had a colonoscopy at 11:30 AM today, and was told that her ulcerative colitis was in remission. She then began having bright red blood, and clots in her bowel movements. She states that she is had to use the restroom approximately every 10-20 minutes. She denies any abdominal pain, or rectal pain. She states that this is never happened to her before. She denies fever, chills, nausea, vomiting. She denies chest pain or shortness of breath. She does endorse feeling slightly lightheaded. She states that she has a history of being transfused with blood for anemia, related to her ulcerative colitis. She states that her hemoglobin is typically around 13. Past medical history: Ulcerative colitis, Danielle's thyroiditis, and anxiety Past surgical history: Bilateral rotator cuff repair, lipoma removal from lower back Medications: Humira, clonazepam, duloxetine, vitamin D, mesalamine, and [place] Thyroid Allergies: Penicillin, azithromycin Social history: Non-smoker, minimal alcohol use. No recreational drugs. Allergies Allergy/AdvReac Type Severity Reaction Status Date / Time Penicillins Allergy Unknown rash Verified 12/29/18 07:35 azithromycin [From Zithromax] Allergy Hives Verified 12/29/18 07:35 OTC COUGH MEDICINES Allergy Unknown hives Uncoded 12/29/18 07:35 Home Medications Home Medications Medication Instructions Recorded Confirmed Type duloxetine 60 mg PO QAM 07/14/18 01/30/19 History clonazepam 0.5 mg tablet 0.5 mg PO Q12H PRN #30 tab 11/10/18 01/30/19 Rx adalimumab [Humira] 40 mg SUBCUT .Q2WK 12/29/18 01/30/19 History mesalamine 1.2 gram tablet,delayed 4.8 gm PO HS tab 01/09/19 01/30/19 History release ergocalciferol (vitamin D2) 50,000 unit PO WK 01/30/19 01/30/19 History thyroid (pork) 90 mg tablet 90 mg PO DAILY #90 tab 01/30/19 01/30/19 Rx Past Med/Surg History Medical History Anxiety (Chronic) Hypothyroid (Chronic) Migraines (Chronic) Ulcerative colitis (Chronic) Elevated troponin H/O lipoma Sacroiliitis Surgical History H/O rotator cuff surgery bilateral History of colonoscopy Family History Mother Hypothyroid Paget disease of bone Father Hypothyroid Hypertension Aunt Ulcerative colitis Brother Crohn's disease Sister Graves disease Anxiety Alcoholism Hyperthyroidism Eating disorder Social History Preferred Language: Maori Communication Ability: Effective Visual Impairment: No Limitations Stand Up Forklift Operator Required: No Beliefs That Will Affect Care: None marital status: marital status details: no kids; currently in relationship Current Living Situation: Spouse current occupational status: employed 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 [employer] Other Information That Helps Us Care for You: No Feels Safe at Home: Yes Safety Concerns: Feels Safe At This Time Smoking Status: Never smoker Second Hand Exposure: No ; Hx Alcohol Use: No Hx Substance Use: No Dental Care, Regularly: No Seatbelt Use: always Do you think of yourself as: straight/heterosexual Review of Systems Constitutional: no fever, no chills, no fatigue and no weakness Respiratory: no cough and no dyspnea Cardiovascular: + lightheadedness; no chest pain, no palpitations and no calf pain Gastrointestinal: + blood in stools; no abdominal pain, no nausea and no vomiting Genitourinary: no dysuria, no urinary frequency and no urinary urgency Physical Exam Constitutional: WD/WN, vitals as above cooperative and comfortable Eyes: PERRL, conjunctivae normal, anicteric sclerae Respiratory: normal respiratory effort, lungs clear to auscultation Cardiovascular: RRR, no murmur, no edema Gastrointestinal (Abdomen): Inspection/Auscultation: abdomen normal to inspection Percussion/Palpation: abdomen soft; abdomen nontender, no guarding and abdomen not rigid liquid red stool noted in toilet Skin: no rashes, warm and dry Neurologic: 5/5 power in UE and LE Sensation intact b/l Results & Data Vital Signs (Past 12 Hours) Vital Signs Temp Pulse Pulse Resp BP BP Pulse Ox 01/31/19 01:03 96 H 16 104/59 L 96 01/31/19 00:23 36.9 C 91 H 16 117/77 96 01/30/19 23:17 96 01/30/19 21:21 84 16 121/76 99 01/30/19 20:34 36.9 C 96 H 16 129/84 99 Code Status & VTE Plan VTE Prophylaxis Plan VTE Prophylaxis will be ordered: No Supervising Physician Co-Signing Physician Notes Patient was seen and examined by me personally. I reviewed the chart, the orders and discussed the case in detail with Dr. Joanna Garcia MD. I read this H&P and agree with its contents to entirety. PG Care Time/CCT Total # of Minutes Spent Total Time Spent with Patient: Total time spent is greater than 50% in coordination of care (as documented) at patient's floor/unit and/or counseling patient: Resident Activity Tracking Resident Involvement: Resident Care Provided Care Provided: Adult Hospital Medicine (1) Anemia Anemia type: unspecified type Qualified Code(s): D64.9 - Anemia, unspecified
[2019-01-31] MEDS ORDERED: clonazePAM 0.5 MG TAB PO PRN (01:31)
[2019-01-31] MEDS: SODIUM CHLORIDE 0.9% 1000ML 1,000 ML IV SCH ×4 (01:54→19:54)
[2019-01-31 04:45] LABS: Hematocrit (blood only) 27.8 % (37-47); Hemoglobin 9.5 g/dL (12.0-16.0)
[2019-01-31] MEDS: ACETAMINOPHEN 325 MG TAB PO PRN ×2 (04:58→18:01)
[2019-01-31 05:12] LABS: Calcium 7.8 mg/dl (8.5-10.1); Creatinine Clr Calc Pharmacy 86.7 ml/min; Est GFR (African American) 120.2; Est GFR (Non-African American) 103.7; Potassium 3.5 mmol/L (3.5-5.1)
--- NOTE | 2019-01-31 08:06 | Gastrointestinal Consultation ---
Date of Consultation January 31, 2019 Assessment & Plan (1) Bright red blood per rectum: Bleeding is likely a result of biopsies in the setting of quiescant UC. 1. Urgent colonoscopy this morning by Dr. Merida. 2. Keep NPO. 3. Check HR, BP Q 30 minutes and keep pt on a monitored bed. Attg add: I interviewed and examined pt, reviewed chart and labs. Pt with rectal bleeding post surveillance scope for UC. Hgb drop but HD stable. Continues to have rectal bleed. Present on Admission?: Yes History of Present Illness Reason for Consultation: Rectal Bleeding Requesting Physician: Dr. Madden Attending Physician: Red Cisneros, DO History of Present Illness Ms. Carli Crow is a 38 yr old female pt of Dr. Perez with a hx of migraines, hypothyroidism, C-diff and UC (followed by nico Chatman'ed by colonosc opy in 2016, maintained on Humira) who began with bright red rectal bleeding around 8PM last evening and presented to the ED. GI is consulted for post colonoscopy rectal bleeding. Hb on arrival was 11.7, today 9.5. Her baseline is 13.2 on January 10. STAT Hb 9.1. today at 0915. KUB on arrival (not read by radiology as of yet but films appear with increased gassiness but w/o obstruction or colon dilation). Colonoscopy when our group assumed care on 07/29/[address] Chanel with severe ulcerative pancolitis. Then Colonoscopy with biopsies (no polyps) yesterday by Dr. Garay with remission. However, the pt began with brisk rectal bleeding last evening at 8PM. She presented to the ED. She is currently passing what she tells me is about a cup of bright red blood rectally every 10 minutes (though I was with her for approx 25 minutes without her passing blood). Her resting HR is in the high 80 80's but goes to 108 with ambulating to the bathroom (which she insists on doing, with the help of her ). I recommended a bedside commode or bedpan but she refuses. She is NPO, on IV fluids. She is awake, alert oriented and BP is 117/60. She c/o a headache and slight chest pressure. She denies any abdominal pain, other than a little cramping. Allergies Allergy/AdvReac Type Severity Reaction Status Date / Time Penicillins Allergy Unknown rash Verified 12/29/18 07:35 azithromycin [From Zithromax] Allergy Hives Verified 12/29/18 07:35 OTC COUGH MEDICINES Allergy Unknown hives Uncoded 12/29/18 07:35 Home Medications Home Medications Medication Instructions Recorded Confirmed Type duloxetine 60 mg PO QAM 07/14/18 01/30/19 History clonazepam 0.5 mg tablet 0.5 mg PO Q12H PRN #30 tab 11/10/18 01/30/19 Rx adalimumab [Humira] 40 mg SUBCUT .Q2WK 12/29/18 01/30/19 History mesalamine 1.2 gram tablet,delayed 4.8 gm PO HS tab 01/09/19 01/30/19 History release ergocalciferol (vitamin D2) 50,000 unit PO WK 01/30/19 01/30/19 History thyroid (pork) 90 mg tablet 90 mg PO DAILY #90 tab 01/30/19 01/30/19 Rx Patient History Medical History Anxiety (Chronic) Hypothyroid (Chronic) Migraines (Chronic) Ulcerative colitis (Chronic) Elevated troponin H/O lipoma Sacroiliitis Surgical History H/O rotator cuff surgery bilateral History of colonoscopy Family History Mother Hypothyroid Paget disease of bone Father Hypothyroid Hypertension Aunt Ulcerative colitis Brother Crohn's disease Sister Graves disease Anxiety Alcoholism Hyperthyroidism Eating disorder Social History Preferred Language: Samoan Communication Ability: Effective Visual Impairment: No Limitations Regional Controller Required: No Beliefs That Will Affect Care: None marital status: marital status details: no kids; currently in relationship Current Living Situation: Spouse current occupational status: employed 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 Other Information That Helps Us Care for You: No Feels Safe at Home: Yes Safety Concerns: Feels Safe At This Time Smoking Status: Never smoker Second Hand Exposure: No ; Hx Alcohol Use: No Hx Substance Use: No Dental Care, Regularly: No Seatbelt Use: always Do you think of yourself as: straight/heterosexual Review of Systems Review of Systems: ROS: Gen: Denies weakness, fevers, weight loss Eyes: No eye redness, or pain, no recent vision changes Resp: No SOB, no cough Cardio: No palpitations/irregular beats, no chest pain GI: See HPI regarding rectal bleeding. No abdominal pain, no nausea/vomiting : Denies pain on urination Skin: No jaundice, itching or new rashes Physical Exam Constitutional: WD/WN, vitals as above (except HR to 108 with ambulation) Eyes: PERRL, conjunctivae normal, anicteric sclerae ENMT: external ear and nose normal, oropharynx normal Neck: trachea midline, no thyromegaly Respiratory: normal respiratory effort, lungs clear to auscultation Cardiovascular: RRR, no murmur, no edema Gastrointestinal (Abdomen): normal bowel sounds, soft, nontender, no hepatosplenomegaly Skin: no rashes, warm and dry no pallor Neurologic: PERRL, EOMI, accommodation nl, no face palsy, no dysarthria Psychiatric: A+Ox3, euthymic affect Lymphatic: no cervical or axillary lymphadenopathy Results & Data Vital Signs (Past 12 Hours) Vital Signs Temp Pulse Pulse Pulse Resp BP BP 01/31/19 07:47 87 01/31/19 07:36 36.8 C 73 18 118/76 01/31/19 04:28 36.7 C 83 20 121/78 01/31/19 02:57 83 01/31/19 02:14 36.8 C 83 18 125/87 01/31/19 02:12 36.8 C 83 18 125/87 01/31/19 01:03 96 H 16 104/59 L 01/31/19 00:23 36.9 C 91 H 16 117/77 01/30/19 23:17 01/30/19 21:21 84 16 121/76 01/30/19 20:34 36.9 C 96 H 16 129/84 Pulse Ox 01/31/19 07:47 01/31/19 07:36 94 01/31/19 04:28 99 01/31/19 02:57 01/31/19 02:14 99 01/31/19 02:12 99 01/31/19 01:03 96 01/31/19 00:23 96 01/30/19 23:17 96 01/30/19 21:21 99 01/30/19 20:34 99 Laboratory Results Hb at 4AM 9.5, at 9:15 AM = 9.1. Diagnostic Findings Abd X-ray: IMPRESSION: Moderate constipation.
--- NOTE | 2019-01-31 08:10 | XRay Report ---
KUB CLINICAL HISTORY: GI bleeding status post colonoscopy. FINDINGS: 2 AP supine abdominal radiographs are compared to study dated 05/26/2018 and correlated with abdominal CT dated 05/24/2018. There is a nonobstructed abdominal bowel gas pattern noting moderate c olonic fecal retention. No evidence of intraperitoneal free air is seen on these supine views. There are no abnormal abdominal calcifications. The bony structures appear intact. IMPRESSION: Moderate constipation. Electronically signed by: Esa Vicente M.D. 01/31/2019 8:08 AM
[2019-01-31] MEDS ORDERED: HYDROmorphone INJ 0.5 MG/0.5 ML SYR IV STA (09:01)
[2019-01-31 09:42] LABS: Basophils # (auto) 0.02 K/uL (0-0.2); Basophils % (auto) 0.3 %; Eosinophils # (auto) 0.18 K/uL (0-0.5); Eosinophils % (auto) 2.4 %; Hematocrit (blood only) 27.3 % (37-47); Hemoglobin 9.1 g/dL (12.0-16.0); Immature Granulocytes # (auto) 0.01 K/uL (0.00-0.02); Immature Granulocytes % (auto) 0.1 %; Lymphocytes # (auto) 2.66 K/uL (1.2-3.4); Lymphocytes % (auto) 35.2 %; Mean Corpuscular Hemoglobin 29.8 pg (25-34); Mean Corpuscular Volume 89.5 fL (80-100); Mean Platelet Volume 9.7 fL (7.4-10.4); Monocytes # (auto) 0.75 K/uL (0.11-0.59); Monocytes % (auto) 9.9 %; Neutrophils # (auto) 3.93 K/uL (1.4-6.5); Neutrophils % (auto) 52.1 %; Platelet Count 242 K/uL (130-400); RDW Coefficient of Variation 13.9 % (11.5-14.5); RDW Standard Deviation 45.7 fL (36.4-46.3); Red Blood Count 3.05 M/uL (4.2-5.4); White Blood Count 7.55 K/uL (4.8-10.8)
[2019-01-31 09:50] LABS: Mean Corpuscular Hgb Conc 33.3 g/dL (32-36)
[2019-01-31] MEDS ORDERED: PROPOFOL IV EMULSION 10 MG/ML 20 ML VIAL IV ONE (11:19)
[2019-01-31] MEDS ORDERED: LIDOCAINE HCL 2% 2 ML VIAL/AMP(20MG/ML) INFIL ONE (11:19)
[2019-01-31] MEDS ORDERED: ATROPINE SULFATE 0.1 MG/ML 10ML SYR IV PRN (11:28)
[2019-01-31] MEDS ORDERED: ePHEDrine sulfate 50 MG/ML AMP IV PRN (11:29)
[2019-01-31] MEDS ORDERED: MIDAZOLAM HCL 1 MG/ML 2ML VIAL ONE (11:34)
--- NOTE | 2019-01-31 12:56 | GI REPORT ---
Patient Name: Carli Crow Procedure Date: 01/31/2019 11:36 AM Date of : 1980 Admit Type: Inpatient Age: 38 Gender: Female Attending MD: Lorena Merida MD Procedure: Colonoscopy Providers: Lorena Merida MD Referring MD: Red Cisneros Indications: Hematochezia Medicines: See the Anesthesia note for documentation of the administered medications Complications: No immediate complications. Estimated Blood Loss: Estimated blood loss: none. Procedure: Pre-Anesthesia Assessment: - ASA Grade Assessment: III - A patient with severe systemic disease. After I obtained informed consent, the scope was passed under direct vision. Throughout the procedure, the patient's blood pressure, pulse, and oxygen saturations were monitored continuously. The scope was introduced through the anus with the intention of advancing to the cecum. The scope was advanced to the descending colon before the procedure was aborted. Medications were given. The colonoscopy was somewhat difficult due to poor endoscopic visualization. The patient tolerated the procedure well. The quality of the bowel preparation was poor. Findings: The perianal and digital rectal examinations were normal. There was a very large amount of both fresh red blood and dark clot that filled the entire lumen of the colon. Visualization was poor due to this bleeding. There was a very large clot in the descending colon that was tethered to small ulcer at 40 cm. The clot remained attached despite multiple attempts at vigorous lavage. There was no active bleeding at this point. Four clips applied to this clot, and appeared to be in good position; hemostasis appeared to be adequate. Impression: Large amount of blood in colon with poor visualization. Clot tethered to bleeding point at 40 cm, clipped. Recommendation: Discharge patient to floor. Follow hgb q 4-6 hours and transfuse for goal hgb 7-8. Clears only today. Although hemostasis achieved today appears adequate, I would like her to undergo bleeding scan today and repeat cscopy tomorrow to verify that she has no bleeding from remaining biopsy sites. Lorena Merida M.D. Lorena Merida MD 01/31/2019 12:56:05 PM This report has been signed electronically. Note Initiated On: 01/31/2019 11:36 AM Number of Addenda: 0 I attest to the content of the Intraoperative Record and orders documented therein, exceptions below {[id number]}
[2019-01-31] MEDS: DULOXETINE HCL 60 MG CAP PO SCH (14:12)
--- NOTE | 2019-01-31 14:18 | Anesthesiology Progress Note ---
Date of Service January 31, 2019 Anesthesia Post Procedure Vital Signs Vital Signs: Temp Pulse Pulse Pulse Resp BP BP 01/31/19 13:04 74 18 133/77 01/31/19 12:49 72 18 133/84 01/31/19 12:34 36.8 C 98 H 16 135/82 01/31/19 10:28 36.9 C 84 18 121/74 01/31/19 09:45 86 116/78 01/31/19 09:15 108 H 115/75 01/31/19 07:47 87 01/31/19 07:36 36.8 C 73 18 118/76 01/31/19 04:28 36.7 C 83 20 121/78 01/31/19 02:57 83 01/31/19 02:14 36.8 C 83 18 125/87 01/31/19 02:12 36.8 C 83 18 125/87 01/31/19 01:03 96 H 16 104/59 L 01/31/19 00:23 36.9 C 91 H 16 117/77 01/30/19 23:17 01/30/19 21:21 84 16 121/76 01/30/19 20:34 36.9 C 96 H 16 129/84 Pulse Ox 01/31/19 13:04 99 01/31/19 12:49 99 01/31/19 12:34 98 01/31/19 10:28 98 01/31/19 09:45 01/31/19 09:15 01/31/19 07:47 01/31/19 07:36 94 01/31/19 04:28 99 01/31/19 02:57 01/31/19 02:14 99 01/31/19 02:12 99 01/31/19 01:03 96 01/31/19 00:23 96 01/30/19 23:17 96 01/30/19 21:21 99 01/30/19 20:34 99 Transfer of Care Handoff Completed per policy Notes Mental Status: alert / awake / arousable Patient Amnestic to Procedure: Yes Nausea / Vomiting: adequately controlled Pain: adequately controlled Airway Patency, RR, SpO2: stable & adequate BP & HR: stable & adequate Hydration State: stable & adequate Anesthetic Complications: no major complications apparent and Pt Satisfied with anesthetic care
--- NOTE | 2019-01-31 14:36 | Emergency Department Note ---
Entered by Irving Ramsey acting as a scribe for History of Present Illness General Chief complaint: Bleeding Stated complaint: HAD GI TODAY, BLEEDING Source: patient History of Present Illness Provider complaint: rectal bleeding Onset (ago): hour(s) 2 Location: genitals Pain Consistency: + intermittent Maximum Pain Intensity: 0 Quality: + other (rectal bleeding) The patient is a 38 year old female who presents to the Emergency Room with complaints of intermittent rectal bleeding that started at 1999. The patient states that she had a routine colonoscopy this morning. During the time specific the patient states she experienced a flow of blood that then proceeded to last 1 0-20 minutes at a time. The patient notes that the doctor also took biopsies. The patient denies the use of blood thinners or Aspirin. The patient denies the possibility of being . The patient informs that she has a medical history of ulcerative colitis. Home Medications Home Medications Medication Instructions Recorded Confirmed Type duloxetine 60 mg PO QAM 07/14/18 01/30/19 History clonazepam 0.5 mg tablet 0.5 mg PO Q12H PRN #30 tab 11/10/18 01/30/19 Rx Humira 40 mg SUBCUT .Q2WK 12/29/18 01/30/19 History mesalamine 1.2 gram tablet,delayed 4.8 gm PO HS tab 01/09/19 01/30/19 History release ergocalciferol (vitamin D2) 50,000 unit PO WK 01/30/19 01/30/19 History thyroid (pork) 90 mg tablet 90 mg PO DAILY #90 tab 01/30/19 01/30/19 Rx Allergies Allergy/AdvReac Type Severity Reaction Status Date / Time Penicillins Allergy Unknown rash Verified 12/29/18 07:35 azithromycin [From Zithromax] Allergy Hives Verified 12/29/18 07:35 OTC COUGH MEDICINES Allergy Unknown hives Uncoded 12/29/18 07:35 Past Med/Surg History Medical History Anxiety (Chronic) Hypothyroid (Chronic) Migraines (Chronic) Ulcerative colitis (Chronic) Elevated troponin H/O lipoma Sacroiliitis Surgical History H/O rotator cuff surgery bilateral History of colonoscopy Family History Mother Hypothyroid Paget disease of bone Father Hypothyroid Hypertension Aunt Ulcerative colitis Brother Crohn's disease Sister Graves disease Anxiety Alcoholism Hyperthyroidism Eating disorder Social History Preferred Language: Kazakh Communication Ability: Effective Visual Impairment: No Limitations Dry Drug Worker Required: No Beliefs That Will Affect Care: None marital status: marital status details: no kids; currently in relationship Current Living Situation: Spouse current occupational status: employed 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 and A total of 10 systems reviewed and were otherwise negative Physical Exam Vital Signs Vital Signs - 24 hr 01/30/19 20:34 01/30/19 21:21 01/30/19 23:17 Temperature 36.9 C Temperature Source Oral Sepsis Recent Fever Within 48 Hours No Sepsis New/Unexplained Change in Mental Status No Sepsis Action Taken by Nursing No Action Required Pulse Oximetry Post Tiitration 96 Pulse Rate 96 H Pulse Rate [Left Radial] 84 Respiratory Rate 16 16 Respiratory Effort / Characteristics Non-Labored Spontaneous Non-Labored Spontaneous Respiratory Depth Normal Normal Blood Pressure 129/84 Blood Pressure [Left Arm] 121/76 Blood Pressure Mean 99 Blood Pressure Mean [Left Arm] 91 Pulse Oximetry 99 99 96 Oxygen Delivery Method Room Air Room Air Room Air 01/31/19 00:23 Temperature 36.9 C Temperature Source Oral Sepsis Recent Fever Within 48 Hours Sepsis New/Unexplained Change in Mental Status Sepsis Action Taken by Nursing Pulse Oximetry Post Tiitration Pulse Rate Pulse Rate [Left Radial] 91 H Respiratory Rate 16 Respiratory Effort / Characteristics Non-Labored Spontaneous Respiratory Depth Normal Blood Pressure Blood Pressure [Left Arm] 117/77 Blood Pressure Mean Blood Pressure Mean [Left Arm] 90 Pulse Oximetry 96 Oxygen Delivery Method Room Air Vital signs reviewed. General: Well-appearing 38 female, in no significant distress. HEENT: No scleral icterus, PERRLA, neck supple. Atraumatic. Cardiovascular: Regular rate and rhythm, no extra sounds. Pulmonary: Clear to auscultation bilaterally, normal work of breathing. Abdomen: Soft, nontender, nondistended, positive bowel sounds. Gross blood per rectum positive clots. Musculoskeletal: Atraumatic, no peripheral edema. Neurologic: Patient awake alert and oriented x 3 Skin: Warm, dry, no rash Course 2214: Past medical records reviewed. The patient was evaluated in room C1. A complete history and physical exam was performed. 0013: I reviewed the patient's case with Dr. Guerra, [facility] Hospitalist. He will evaluate the patient for further management. 0018: I reassessed the patient and informed her about her test results. She is agreeable with the plan of action. Consultations Consultation #1: I reviewed the patient's case with Dr. Guerra, [facility] Hospitalist. He will evaluate the patient for further management. Time: 00:13 Administered Medications Discontinued Medications Acetaminophen (Tylenol) 650 mg PO Q4H PRN PRN Reason: pain/fever Stop: 03/02/19 01:30 Last Admin: 02/01/19 04:56 Dose: 650 mg Documented by: [id number] Admin: 01/31/19 18:01 Dose: 650 mg Documented by: [id number] Admin: 01/31/19 04:58 Dose: 650 mg Documented by: [id number] Duloxetine HCl (Cymbalta) 60 mg PO QAM [facility] Stop: 03/02/19 08:59 Last Admin: 02/02/19 08:13 Dose: 60 mg Documented by: [id number] Admin: 02/01/19 16:15 Dose: 60 mg Documented by: [id number] Admin: 01/31/19 14:12 Dose: Not Given Documented by: [id number] Hydromorphone HCl (Dilaudid) 0.5 mg IV NOW STA Stop: 01/31/19 09:02 Last Admin: 01/31/19 09:27 Dose: 0.5 mg Documented by: [id number] Sodium Chloride (Nss 1000ml) 1,000 mls @ 100 mls/hr IV .Q10H MARILU Stop: 01/31/19 08:59 Last Infusion: 01/31/19 01:48 Dose: 0 mls/hr Documented by: [id number] Infusion: 01/31/19 01:48 Dose: 0 mls/hr Documented by: [id number] Admin: 01/30/19 23:17 Dose: 100 mls/hr Documented by: [id number] Sodium Chloride (Nss 1000ml) 1,000 mls @ 100 mls/hr IV .Q10H MARILU Stop: 03/02/19 01:30 Last Admin: 02/02/19 03:08 Dose: 100 mls/hr Documented by: [id number] Infusion: 02/02/19 03:08 Dose: 100 mls/hr Documented by: [id number] Admin: 02/01/19 17:30 Dose: 100 mls/hr Documented by: [id number] Infusion: 02/01/19 17:30 Dose: 100 mls/hr Documented by: [id number] Admin: 02/01/19 07:52 Dose: 100 mls/hr Documented by: [id number] Infusion: 02/01/19 05:54 Dose: 100 mls/hr Documented by: [id number] Admin: 01/31/19 19:54 Dose: 100 mls/hr Documented by: [id number] Admin: 01/31/19 19:54 Dose: Not Given Documented by: [id number] Infusion: 01/31/19 15:25 Dose: 0 mls/hr Documented by: [id number] Admin: 01/31/19 01:54 Dose: 100 mls/hr Documented by: [id number] Lidocaine HCl (Xylocaine 2%) Confirm Administered Dose 2 ml INFIL .STK-MED ONE Stop: 01/31/19 11:20 Last Admin: 01/31/19 15:24 Dose: Not Given Documented by: [id number] Lidocaine HCl (Xylocaine 2%) Confirm Administered Dose 2 ml INFIL .STK-MED ONE Stop: 02/01/19 14:32 Last Admin: 02/01/19 16:25 Dose: Not Given Documented by: [id number] Midazolam HCl (Versed) Confirm Administered Dose 2 mg .ROUTE .STK-MED ONE Stop: 01/31/19 11:35 Last Admin: 01/31/19 15:24 Dose: Not Given Documented by: [id number] Midazolam HCl (Versed) Confirm Administered Dose 2 mg .ROUTE .STK-MED ONE Stop: 02/01/19 14:32 Last Admin: 02/01/19 16:25 Dose: Not Given Documented by: [id number] Miscellaneous (Order Awaiting Action) 1 ea N/A QS MARILU Stop: 03/02/19 07:59 Last Admin: 02/01/19 16:15 Dose: Not Given Documented by: [id number] Admin: 02/01/19 08:45 Dose: Not Given Documented by: [id number] Admin: 01/31/19 23:10 Dose: Not Given Documented by: [id number] Admin: 01/31/19 17:07 Dose: Not Given Documented by: [id number] Admin: 01/31/19 10:34 Dose: Not Given Documented by: [id number] Morphine Sulfate (Morphine Sulfate) 2 mg IV Q4H PRN PRN Reason: Pain Stop: 02/14/19 16:00 Last Admin: 01/31/19 16:18 Dose: 2 mg Documented by: [id number] Non-Formulary Medication (Non-Formulary Patient's Own Med) 1 ea SQ 0900 ONE Stop: 02/02/19 09:01 Last Admin: 02/02/19 08:13 Dose: 40 mg Documented by: [id number]: Non- Formulary Patient's Own Med 4 ea PO QAM [facility] Stop: 03/04/19 08:59 Last Admin: 02/02/19 08:12 Dose: 1.2 gm Documented by: [id number] Ondansetron HCl (Zofran) Confirm Administered Dose 4 mg .ROUTE .STK-MED ONE Stop: 01/31/19 21:19 Last Admin: 01/31/19 21:19 Dose: 4 mg Documented by: [id number] Polyethylene Glycol/Electrolytes (Golytely) 8 dose PO TODAY@0500,1800 [facility] Stop: 02/01/19 05:01 Last Admin: 02/01/19 04:46 Dose: 8 dose Documented by: [id number] Admin: 01/31/19 17:57 Dose: 8 dose Documented by: [id number] Propofol (Diprivan) Confirm Administered Dose 400 mg IV .STK-MED ONE Stop: 01/31/19 11:20 Last Admin: 01/31/19 15:24 Dose: Not Given Documented by: [id number] Propofol (Diprivan) Confirm Administered Dose 400 mg IV .STK-MED ONE Stop: 02/01/19 14:32 Last Admin: 02/01/19 16:24 Dose: Not Given Documented by: [id number] Sumatriptan Succinate (Imitrex) 6 mg SQ NOW STA Stop: 02/01/19 08:17 Last Admin: 02/01/19 08:44 Dose: 6 mg Documented by: [id number] Thyroid ([place] Thyroid) 90 mg PO DAILYBB [facility] Stop: 03/03/19 06:29 Last Admin: 02/02/19 05:55 Dose: 90 mg Documented by: [id number] Admin: 02/01/19 04:56 Dose: 90 mg Documented by: [id number] Medical Decision Making Differential Diagnosis Differential: Diverticulitis, AVM, Coagulopathy, Colitis, Malignancy, Upper GI bleed, Fissure, Hemorrhoids, post procedural bleed amongst other pathologies entertained. Medical Records Attestation: I reviewed the patient's medical records. Home Medications Current Medication List: was personally reviewed by me Laboratory Data Attestation: I reviewed the patient's lab results. Result diagrams: 02/02/19 06:43 02/01/19 07:56 Lab Results 01/30/19 01/30/19 01/30/19 Range/Units 23:09 23:09 23:09 WBC 7.77 (4.8-10.8) K/uL RBC 3.84 L (4.2-5.4) M/uL Hgb 11.7 L (12.0-16.0) g/dL Hct 34.6 L (37-47) % MCV 90.1 (80-100) fL MCH 30.5 (25-34) pg MCHC 33.8 (32-36) g/dL RDW Std Deviation 46.4 H (36.4-46.3) fL RDW Coeff of Elayne 13.9 (11.5-14.5) % Plt Count 258 (130-400) K/uL MPV 9.5 (7.4-10.4) fL Immature Gran % (Auto) 0.1 % Neut % (Auto) 41.9 % Lymph % (Auto) 44.7 % Schley % (Auto) 9.3 % Eos % (Auto) 3.5 % Baso % (Auto) 0.5 % Immature Gran # (Auto) 0.01 (0.00-0.02) K/uL Neut # (Auto) 3.26 (1.4-6.5) K/uL Lymph # (Auto) 3.47 H (1.2-3.4) K/uL Schley # (Auto) 0.72 H (0.11-0.59) K/uL Eos # (Auto) 0.27 (0-0.5) K/uL Baso # (Auto) 0.04 (0-0.2) K/uL PT 10.0 (9.0-12.0) Seconds INR 1.0 (0.9-1.1) APTT 26.5 (21.0-31.0) Seconds PTT Ratio 1.0 Sodium 142 (136-145) mmol/L Potassium 3.5 (3.5-5.1) mmol/L Chloride 104 (98-107) mmol/L Carbon Dioxide 26 (21-32) mmol/L Anion Gap 12.0 H (3-11) BUN 19 H (7-18) mg/dl Creatinine 0.88 (0.6-1.2) mg/dl Est Cr Clr Drug Dosing 71.8 ml/min Est GFR ( Amer) 95.9 Est GFR (Non-Af Amer) 82.8 BUN/Creatinine Ratio 21.7 H (10-20) Glucose 109 H (70-99) mg/dl Calcium 8.4 L (8.5-10.1) mg/dl Total Bilirubin 0.5 (0.2-1) mg/dl AST 14 L (15-37) U/L ALT 24 (12-78) U/L Alkaline Phosphatase 91 (45-117) U/L Total Protein 7.1 (6.4-8.2) gm/dl Albumin 3.4 (3.4-5.0) gm/dl Globulin 3.7 (2.5-4.0) gm/dl Albumin/Globulin Ratio 0.9 (0.9-2) Blood Type Antibody Screen Crossmatch 01/30/19 Range/Units 23:09 WBC (4.8-10.8) K/uL RBC (4.2-5.4) M/uL Hgb (12.0-16.0) g/dL Hct (37-47) % MCV (80-100) fL MCH (25-34) pg MCHC (32-36) g/dL RDW Std Deviation (36.4-46.3) fL RDW Coeff of Elayne (11.5-14.5) % Plt Count (130-400) K/uL MPV (7.4-10.4) fL Immature Gran % (Auto) % Neut % (Auto) % Lymph % (Auto) % Schley % (Auto) % Eos % (Auto) % Baso % (Auto) % Immature Gran # (Auto) (0.00-0.02) K/uL Neut # (Auto) (1.4-6.5) K/uL Lymph # (Auto) (1.2-3.4) K/uL Schley # (Auto) (0.11-0.59) K/uL Eos # (Auto) (0-0.5) K/uL Baso # (Auto) (0-0.2) K/uL PT (9.0-12.0) Seconds INR (0.9-1.1) APTT (21.0-31.0) Seconds PTT Ratio Sodium (136-145) mmol/L Potassium (3.5-5.1) mmol/L Chloride (98-107) mmol/L Carbon Dioxide (21-32) mmol/L Anion Gap (3-11) BUN (7-18) mg/dl Creatinine (0.6-1.2) mg/dl Est Cr Clr Drug Dosing ml/min Est GFR ( Amer) Est GFR (Non-Af Amer) BUN/Creatinine Ratio (10-20) Glucose (70-99) mg/dl Calcium (8.5-10.1) mg/dl Total Bilirubin (0.2-1) mg/dl AST (15-37) U/L ALT (12-78) U/L Alkaline Phosphatase (45-117) U/L Total Protein (6.4-8.2) gm/dl Albumin (3.4-5.0) gm/dl Globulin (2.5-4.0) gm/dl Albumin/Globulin Ratio (0.9-2) Blood Type O Positive Antibody Screen NEGATIVE Crossmatch See Detail Imaging Data Attestation: I personally reviewed and interpreted this imaging study as follows: My Impression: XR KUB/Abdomen 1 View No free air. Formed stool. ECG Data Attestation: I personally reviewed and interpreted this ECG as follows: Indication: other (GI Bleed) Rate (beats per minute): 83 Rhythm: normal sinus Findings: + other (Non specific T -wave abnormality in the anterior isabella; QTC 479); no acute ischemic change and no ectopy Blood Pressure Blood Pressure Findings: Normal blood pressure MDM Narrative This patient was evaluated and appeared to be in no significant distress. Patient had hematochezia with clotting x2 episodes in the ED. Hemoglobin is noted to be 11.7. IV hydration was initiated. The patient was typed and crossed for 2 units PRBCs. KUB was performed and reveals no evidence of free air. Patient's abdomen is largely nontender. Vital signs have remained stable. Dr. Merida of gastroenterology was consulted. The hospitalist service will be consulted for evaluation and further management. Patient is aware of the plan and agrees. Impression & Plan Bright red blood per rectum, Status post colonoscopy Discharge Plan Visit Data *Final* Discharge Date/Time: 01/31/19 01:07 Chief Complaint: Bleeding Stated Complaint: HAD GI TODAY, BLEEDING ED Provider: Katarina Hendrickson Discharge Problem: Bright red blood per rectum, Status post colonoscopy Patient Disposition: Admitted As Inpatient Condition: Good Discharge Instructions Interventions: ED Discharge Assessment Last Done: 01/31/19 01:07 The scribe's documentation has been prepared under my direction and personally reviewed by me in its entirety. I confirm that the note above accurately reflects all work, treatment, procedures, and medical decision making performed by me.
--- NOTE | 2019-01-31 15:37 | Nuclear Medicine Report ---
NUCLEAR GI BLEEDING SCAN CLINICAL HISTORY: Rectal bleeding. Status post colonoscopy with biopsies. COMPARISON STUDY: Abdominal CT dated 05/24/2018. TECHNIQUE: Following the IV administration of 22.2 mCi of technetium 99m UltraTag labeled red blood c ells, nuclear bleeding scan was performed. Anterior flow images were obtained every 2 seconds for a t otal 58 seconds. Anterior static images were obtained every 5 minutes for a total of 60 minutes. FINDINGS: On the flow images there is expected activity within the abdominal aorta, the liver, and the spleen. There is no abnormal tracer localizing to the bowel loops to suggest active GI bleeding at the time o f examination. IMPRESSION: There is no scintigraphic evidence of active GI bleeding at the time of examination. Electronically signed by: Esa Vicente M.D. 01/31/2019 3:36 PM
[2019-01-31 16:00] LABS: Hematocrit (blood only) 24.1 % (37-47); Hemoglobin 8.1 g/dL (12.0-16.0)
[2019-01-31] MEDS ORDERED: MoRPHine SULFATE 4 MG/ML 1 ML CARP\\VIAL IV PRN (16:01)
[2019-01-31] MEDS ORDERED: MoRPHine SULFATE 2 MG/ML CARP IV PRN (16:01)
[2019-01-31] MEDS ORDERED: Nursing to Pharmacy Communication ONE (17:20)
--- NOTE | 2019-01-31 17:53 | History & Physical Bridge Note ---
Date of Service January 31, 2019 History & Physical Bridge Note I have examined the patient, reviewed the History & Physical and in the interval since the performance of the History & Physical I have noted the following changes of clinical significance: Patient had colonoscopy this morning with Dr. Merida. Colon filled with red blood, difficult to determine source of bleeding but Dr. Merida feels that he identified it. Clips placed. Hemostasis achieved. However, there was still a lot of blood in the colon. Plan to complete bowel prep this evening and likely repeat colonoscopy in the AM to assure that there is no further bleeding Hb dropped to 8.1 this afternoon from 9.1 this morning. Will repeat at 2100. Patient still with bloody BM. Her BP is stable. Admits to a headache and some light headedness when walking to the bathroom. Consented her for blood. will move to [facility] for private room since she will be going through prep this evening repeat H/H at 2100, if Hb is < 7.5 or if patient becomes hypotensive would transfuse two units, patient is consented and typed and crossed
[2019-01-31] MEDS: LAVAGE SOLUTION 4000ML PO SCH (17:57)
[2019-01-31] MEDS ORDERED: ONDANSETRON INJ 2 MG/ML 2 ML VIAL IV PRN (21:01)
[2019-01-31] MEDS ORDERED: ONDANSETRON INJ 2 MG/ML 2 ML VIAL ONE (21:18)
[2019-01-31 21:37] LABS: Hematocrit (blood only) 20.5 % (37-47); Hemoglobin 7.1 g/dL (12.0-16.0)
[2019-02-01] MEDS: LAVAGE SOLUTION 4000ML PO SCH (04:46)
[2019-02-01] MEDS: ARMOUR THYROID 30 MG TAB PO SCH (04:56)
[2019-02-01] MEDS: ACETAMINOPHEN 325 MG TAB PO PRN (04:56)
[2019-02-01] MEDS: SODIUM CHLORIDE 0.9% 1000ML 1,000 ML IV SCH ×2 (07:52→17:30)
[2019-02-01 08:09] LABS: Hematocrit (blood only) 25.8 % (37-47); Hemoglobin 9.3 g/dL (12.0-16.0)
[2019-02-01] MEDS ORDERED: SUMAtriptan succinate 6 MG/0.5 ML VIAL SQ STA (08:16)
[2019-02-01 08:39] LABS: BUN Creatinine Ratio 10.8 (10-20); Calcium 8.3 mg/dl (8.5-10.1); Creatinine Clr Calc Pharmacy 93.8 ml/min; Est GFR (African American) 128.3; Est GFR (Non-African American) 110.7; Potassium 3.4 mmol/L (3.5-5.1)
--- NOTE | 2019-02-01 09:17 | Discharge Summary ---
Date of Service February 02, 2019 Admission HPI Per Admitting Provider Ms. Crow is a 38-year-old female with a past medical history of ulcerative colitis, Danielle's thyroiditis, and anxiety who presents to the emergency department due to right red blood per rectum, beginning at approximately 8 this evening. The patient reports that she was diagnosed with ulcerative colitis 1 year ago, and follows with Dr. Garay. She states that she had a colonoscopy at 11:30 AM today, and was told that her ulcerative colitis was in remission. She then began having bright red blood, and clots in her bowel movements. She states that she is had to use the restroom approximately every 10-20 minutes. She denies any abdominal pain, or rectal pain. She states that this is never happened to her before. She denies fever, chills, nausea, vomiting. She denies chest pain or shortness of breath. She does endorse feeling slightly lightheaded. She states that she has a history of being transfused with blood for anemia, related to her ulcerative colitis. She states that her hemoglobin is typically around 13. Past medical history: Ulcerative colitis, Danielle's thyroiditis, and anxiety Past surgical history: Bilateral rotator cuff repair, lipoma removal from lower back Medications: Humira, clonazepam, duloxetine, vitamin D, mesalamine, and [place] Thyroid Allergies: Penicillin, azithromycin Social history: Non-smoker, minimal alcohol use. No recreational drugs. Principal Diagnosis GI bleeding from colon after biopsy Discharge Exam Constitutional WD/WN, vitals as above Eyes PERRL, conjunctivae normal, anicteric sclerae ENMT external ear and nose normal, oropharynx normal Neck trachea midline, no thyromegaly Respiratory normal respiratory effort, lungs clear to auscultation Cardiovascular RRR, no murmur, no edema Gastrointestinal (Abdomen) normal bowel sounds, soft, nontender, no hepatosplenomegaly Musculoskeletal no cyanosis or clubbing, extremities motor strength 5/5 Skin no rashes, warm and dry Neurologic patellar DTR's 2+ bilat, sensation intact and PERRL, EOMI, accommodation nl, no face palsy, no dysarthria Psychiatric A+Ox3, euthymic affect Lymphatic no cervical or axillary lymphadenopathy Discharge Data Allergies Allergy/AdvReac Type Severity Reaction Status Date / Time Penicillins Allergy Unknown rash Verified 12/29/18 07:35 azithromycin [From Zithromax] Allergy Hives Verified 12/29/18 07:35 OTC COUGH MEDICINES Allergy Unknown hives Uncoded 12/29/18 07:35 Consultations 01/31/19 00:13 Consult Gastroenterology Stat ED Decision to Admit Stat Procedures Performed Operation Date: 01/31/19 08:30 Actual Procedures p Colonoscopy Hemostasis - Lorena Merida Operation Date: 02/01/19 08:30 <No data on this case meets the specified criteria> Hospital Course (1) Bright red blood per rectum: colonoscopy on 01/31 with clip placed at potential bleeding source, blood lavaged colonoscopy on 02/01 with additional clip placed at another biopsy site some red blood in left colon that cleared with lavage but no clear bleeding source bleeding resolved this AM Hb stable for 24 hours okay for discharge from GI perspective (2) Acute blood loss anemia: due to bleeding from colon after biopsies Hb dropped to 7.1 night of 01/31, transfused two units up to 9.3 on 02/01, stable this AM at 9.2 (3) Status post colonoscopy: post biopsy bleeding colonoscopy showed that UC in remission (4) Ulcerative colitis: continue on Humira and Mesalamine follows with [facility] GI follow up with Dr. 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 (6) Anxiety: Klonopin (7) Chronic migraine: severe headache resolved with Imitrex SC Total Time Total Time Spent Total Time Spent (In Minutes): 31 minutes Total Time Includes: Examination of the Patient, Discharge Planning, Medication Reconciliation, Communication With Other Providers (Jose R IRAHETA with GI) and Other (discussion with patient's ) Discharge Plan Discharge Items Patient Disposition: Home - Self-Care Reason For Visit: GI BLEED Discharge Diagnosis: Bleeding from colon after biopsy Acute blood loss anemia Condition on Discharge: Good Goals: improve function, watch for any further bleeding follow up with gastroenterology Activity: Resume your previous activity Non-emergency contact: Primary Care Provider and Engineering Instructor Call non-emergency contact if: you have any medication questions, your symptoms worsen, your pain is not controlled, your pain is worsening and you have a fever Follow-up/Referrals: Stephie Perez MD [Primary Care Provider] - 02/07/19 10:15 am (Please, follow up with Dr. Perez on WednesdayFebruary 07 at 10:15 am. *If you need to change this appointment, call the office at [phone].) Ray Garay [Physician] - (Please, follow up with [facility] G[facility]enter[facility]. *A nurse from this office is supposed to call you with appointment information. If you have any questions, call their office at [phone].) Diet: Regular Addtl Attending Provider Instructions: Medications: no changes Bleeding after colon biopsies caused acute blood loss anemia, Hb down to 7.1, up to 9.3 yesterday and then stable for 24 hours, 9.2 this morning vitals stable no further bleeding on repeat scope, bleeding scan negative yesterday recommend follow up with Dr. Perez on 02/[address] Garay with GI, see above Pending Studies at Discharge: No Stand-Alone Forms: My [facility] Medications and DC Order Prescriptions: Continued clonazepam 0.5 mg tablet 0.5 mg PO Q12H PRN (Reason: Anxiety) Qty: 30 RF: 0 thyroid (pork) [[place] Thyroid] 90 mg tablet 90 mg PO DAILY Qty: 90 RF: 0 mesalamine [Lialda] 1.2 gram tablet,delayed release (DR/EC) 4.8 gm PO HS RF: 0 duloxetine 60 mg capsule,delayed release(DR/EC) 60 mg PO QAM RF: 0 ergocalciferol (vitamin D2) 50,000 unit capsule 50,000 unit PO WK RF: 0 Humira 40 mg/0.8 mL Syringe Kit 40 mg SUBCUT .Q2WK RF: 0 Discharge Orders: Discharge Order (Routine); Ordered 02/01/19 Ordered By: Red Cisneros Admission Data Admit Date/Time: 01/31/19 00:48 Attending Provider: Red Cisneros Admit Provider: Joanna Garcia Primary Care Provider: Stephie Perez Other Providers: Lorena Merida Keith D. Other Interventions: Discharge Summary Assessment (RN) Last Done: 02/02/19 09:32 DC Date/Time DO NOT enter until pt leaves facility: 02/02/19 10:16
--- NOTE | 2019-02-01 10:53 | Anesthesiology Consultation ---
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 initiated Consults Requested none History Surgery Operation Date: 01/31/19 08:30 Proposed Procedures p Colonoscopy Dr Magnolia eMrida Operation Date: 02/01/19 08:30 Proposed Procedures p Colonoscopy Dr Magnolia Merida Height/Weight Height: 5 ft Weight: 63.5 kg Allergies Allergy/AdvReac Type Severity Reaction Status Date / Time Penicillins Allergy Unknown rash Verified 12/29/18 07:35 azithromycin [From Zithromax] Allergy Hives Verified 12/29/18 07:35 OTC COUGH MEDICINES Allergy Unknown hives Uncoded 12/29/18 07:35 Medications Home Medications Medication Instructions Recorded Confirmed Last Taken duloxetine 60 mg PO QAM 07/14/18 01/30/19 07/28/18 clonazepam 0.5 mg tablet 0.5 mg PO Q12H PRN #30 tab 11/10/18 01/30/19 Unknown adalimumab [Humira] 40 mg SUBCUT .Q2WK 12/29/18 01/30/19 01/19/19 mesalamine 1.2 gram tablet,delayed 4.8 gm PO HS tab 01/09/19 01/30/19 Unknown release ergocalciferol (vitamin D2) 50,000 unit PO WK 01/30/19 01/30/19 Unknown thyroid (pork) 90 mg tablet 90 mg PO DAILY #90 tab 01/30/19 01/30/19 Unknown Active Medications Generic Name Dose Route Start Last Admin Trade Name Freq PRN Reason Stop Dose Admin Acetaminophen 650 mg 01/31/19 01:31 02/01/19 04:56 Tylenol PO 03/02/19 01:30 650 mg Q4H PRN Administration pain/fever Duloxetine HCl 60 mg 01/31/19 09:00 01/31/19 14:12 Cymbalta PO 03/02/19 08:59 Not Given QAM MARILU Sodium Chloride 1,000 mls @ 100 mls/hr 01/31/19 01:31 02/01/19 07:52 Nss 1000ml IV 03/02/19 01:30 100 mls/hr .Q10H MARILU Administration Miscellaneous 1 ea 01/31/19 08:00 02/01/19 08:45 Order Awaiting Action N/A 03/02/19 07:59 Not Given QS MARILU Morphine Sulfate 2 mg 01/31/19 16:01 01/31/19 16:18 Morphine Sulfate IV 02/14/19 16:00 2 mg Q4H PRN Administration Pain Thyroid 90 mg 02/01/19 06:30 02/01/19 04:56 Preston Thyroid PO 03/03/19 06:29 90 mg DAILYBB MARIUL Administration NPO Date Last Intake of Fluids: 02/01/19 Time Last Intake of Fluids: 13:00 Last Intake of Fluids Comment: Bowel prep Date Last Intake of Solids: 01/31/19 Time Last Intake of Solids: 00:00 Past Medical History Medical History Anxiety (Chronic) Hypothyroid (Chronic) Migraines (Chronic) Ulcerative colitis (Chronic) Elevated troponin H/O lipoma Sacroiliitis Past Family History Family History Mother Hypothyroid Paget disease of bone Father Hypothyroid Hypertension Aunt Ulcerative colitis Brother Crohn's disease Sister Graves disease Anxiety Alcoholism Hyperthyroidism Eating disorder Past Surgical History Surgical History H/O rotator cuff surgery bilateral History of colonoscopy Social History Smoking Status: Never smoker Hx Alcohol Use: No Alcohol type: beer and wine alcohol intake frequency: holidays/special occasions only Hx Substance Use: No Physical Exam Vital Signs Last Vital Signs Temp 36.6 C 02/01/19 07:44 Pulse 96 H 02/01/19 07:44 Resp 18 02/01/19 07:44 BP 115/72 02/01/19 07:44 Pulse Ox 99 02/01/19 07:44 Testing Laboratory Results 02/01/19 07:56 02/01/19 07:56 PT 10.0 Seconds (9.0-12.0) 01/30/19 23:09 INR 1.0 (0.9-1.1) 01/30/19 23:09 APTT 26.5 Seconds (21.0-31.0) 01/30/19 23:09 Blood Type O Positive 01/30/19 23:09 Antibody Screen NEGATIVE 01/30/19 23:09
--- NOTE | 2019-02-01 12:05 | Gastroenterology Progress Note ---
Date of Service February 01, 2019 Assessment & Plan (1) Bright red blood per rectum: Bleeding is likely a result of biopsies in the setting of quiescant UC. 1. Repeat colonoscopy today by Dr. Merida. 2. Keep NPO. 3. Further recommendations to follow endoscopy. Attg add: I interviewed and examined pt, reviewed chart and labs. Pt without further bleeding overnight. Will plan re-scope today, with plans to d/c if no stigmata of high risk bleed. Present on Admission?: Yes Subjective Ms. Sary Crow is a 38-year-old female who was admitted on January 30 with rectal bleeding after having undergone colonoscopy for restaging of ulcerative colitis on January 29 with completion of biopsies. Bleeding began several hours after completion of the colonoscopy. Yesterday she underwent a repeat colonoscopy with clipping of one bleeding site. NM GI bleeding scan was negative for significant bleeding. She completed colonoscopy prep. During the prep she continued with bright red liquid bloody bowel movements. Hemoglobin was 11 on arrival, dropped down to 7. 1, received 2 units of blood and hemoglobin today is 9.3. No significant abdominal discomfort. She remains hemodynamically stable. Review of Systems Review of Systems: ROS: Gen: Denies weakness, fevers, weight loss Eyes: No eye redness, or pain, no recent vision changes Resp: No SOB, no cough Cardio: No palpitations/irregular beats, no chest pain GI: See HPI regarding rectal bleeding. No abdominal pain, no nausea/vomiting : Denies pain on urination Skin: No jaundice, itching or new rashes Physical Exam Constitutional: WD/WN, vitals as above Eyes: PERRL, conjunctivae normal, anicteric sclerae ENMT: external ear and nose normal, oropharynx normal Neck: trachea midline, no thyromegaly Respiratory: normal respiratory effort, lungs clear to auscultation Cardiovascular: RRR, no murmur, no edema Gastrointestinal (Abdomen): normal bowel sounds, soft, nontender, no hepatosplenomegaly Skin: no rashes, warm and dry Neurologic: PERRL, EOMI, accommodation nl, no face palsy, no dysarthria Psychiatric: A+Ox3, euthymic affect Lymphatic: no cervical or axillary lymphadenopathy Results & Data Vital Signs (Past 12 Hours) Vital Signs Temp Pulse Pulse Resp BP BP Pulse Ox 02/01/19 11:23 80 02/01/19 11:22 37.0 C 102 H 17 123/81 99 02/01/19 07:44 36.6 C 96 H 18 115/72 99 02/01/19 04:36 36.9 C 102 H 16 116/76 98 02/01/19 02:45 36.7 C 89 18 100/64 99 02/01/19 02:15 36.8 C 93 H 20 105/64 97 02/01/19 02:00 36.8 C 94 H 20 107/60 98 02/01/19 01:43 36.7 C 94 H 16 104/66 98 02/01/19 00:56 36.7 C 84 14 110/66 02/01/19 00:05 36.8 C 83 20 123/77 100 02/01/19 00:00 86 Laboratory Results Hb 9.3, Hct 25, BUN 7, Cr 0.67, K 3.4. Diagnostic Findings GI bleeding scan 01/31/19: IMPRESSION: There is no scintigraphic evidence of active GI bleeding at the time of examination. KUB 01/31/19: IMPRESSION: Moderate constipation.
[2019-02-01] MEDS ORDERED: MIDAZOLAM HCL 1 MG/ML 2ML VIAL ONE (14:31)
[2019-02-01] MEDS ORDERED: LIDOCAINE HCL 2% 2 ML VIAL/AMP(20MG/ML) INFIL ONE (14:31)
[2019-02-01] MEDS ORDERED: PROPOFOL IV EMULSION 10 MG/ML 20 ML VIAL IV ONE (14:31)
--- NOTE | 2019-02-01 15:26 | GI REPORT ---
Patient Name: Carli Crow Procedure Date: 02/01/2019 2:28 PM Date of : 1980 Admit Type: Inpatient Age: 38 Gender: Female Attending MD: Lorena Merida MD Procedure: Colonoscopy Providers: Lorena Merida MD Referring MD: Red Cisneros Indications: Hematochezia Medicines: See the Anesthesia note for documentation of the administered medications Complications: No immediate complications. Estimated Blood Loss: Estimated blood loss: none. Procedure: Pre-Anesthesia Assessment: - ASA Grade Assessment: III - A patient with severe systemic disease. After I obtained informed consent, the scope was passed under direct vision. Throughout the procedure, the patient's blood pressure, pulse, and oxygen saturations were monitored continuously. The scope was introduced through the anus and advanced to the terminal ileum. The colonoscopy was performed without difficulty. The patient tolerated the procedure well. The quality of the bowel preparation was good. Findings: The perianal and digital rectal examinations were normal. There was red blood in the rectum, descending and transverse colon that cleared with lavage. There was green-brown stool in the ascending colon. There were multiple pseudopolyps throughout the descending and transverse colon. A clip was seen at 40 cm without any high risk stigmata. There was a pseudopolyp with a small ulcer and a clot at 50 cm, likely corresponding to a prior biopsy site. This was not actively bleeding. Because there was a clot at this site, a clip was applied to this site. No other source of potential bleeding was identified. The ileum was normal. Impression: Red blood in the left colon that cleared with lavage, without identification of source of an active bleed. Prior biopsy site with small ulcer and clot, clipped. Prior site of clipping without evidence of active bleeding. Recommendation: - Discharge patient to floor. - Begin clears. - Follow Hgb q 12. Chente Doe MD 02/01/2019 3:25:42 PM This report has been signed electronically. Note Initiated On: 02/01/2019 2:28 PM Number of Addenda: 0 I attest to the content of the Intraoperative Record and orders documented therein, exceptions below {[id number]}
--- NOTE | 2019-02-01 15:58 | Hospitalist Progress Note ---
Date of Service February 01, 2019 Assessment & Plan (1) Acute blood loss anemia: due to bleeding from colon after biopsies Hb dropped to 7.1 last night, transfused two units up to 9.3 this morning repeat this evening and tomorrow AM (2) Bright red blood per rectum: colonoscopy on 01/31 with clip placed at potential bleeding source, blood lavaged colonoscopy on 02/01 with additional clip placed at another biopsy site some red blood in left colon that cleared with lavage but no clear bleeding source will monitor Hb q12, allow clears if Hb is stable and no bleeding per rectum than may be okay for discharge tomorrow will discuss with GI (3) Status post colonoscopy: post biopsy bleeding colonoscopy showed that UC in remission (4) Ulcerative colitis: continue on Humira and Mesalamine follows with [facility] (5) 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 Merida recommends following Hb, allow clears patient okay with staying Review of Systems Review of Systems: All systems reviewed & are unremarkable except as noted in HPI & below Gastrointestinal: + abdominal pain, + diarrhea/loose stools and + blood in stools; no nausea, no vomiting and no constipation Neurologic: + headache(s) Physical Exam Constitutional: WD/WN, vitals as above Eyes: PERRL, conjunctivae normal, anicteric sclerae ENMT: external ear and nose normal, oropharynx normal Neck: trachea midline, no thyromegaly Respiratory: normal respiratory effort, lungs clear to auscultation Cardiovascular: RRR, no murmur, no edema Gastrointestinal (Abdomen): normal bowel sounds, soft, nontender, no hepatosplenomegaly Musculoskeletal: no cyanosis or clubbing, extremities motor strength 5/5 Skin: no rashes, warm and dry Neurologic: patellar DTR's 2+ bilat, sensation intact and PERRL, EOMI, accommodation nl, no face palsy, no dysarthria Psychiatric: A+Ox3, euthymic affect Lymphatic: no cervical or axillary lymphadenopathy Results & Data Vital Signs (Past 12 Hours) Vital Signs Temp Pulse Pulse Pulse Resp BP BP 02/01/19 15:45 80 18 128/88 02/01/19 15:35 89 18 134/87 02/01/19 15:28 36.8 C 93 H 86 18 143/86 H 02/01/19 15:19 93 H 18 143/86 H 02/01/19 14:27 36.8 C 90 18 149/74 H 02/01/19 11:23 80 02/01/19 11:22 37.0 C 102 H 17 123/81 02/01/19 07:44 36.6 C 96 H 18 115/72 02/01/19 04:36 36.9 C 102 H 16 116/76 Pulse Ox 02/01/19 15:45 100 02/01/19 15:35 100 02/01/19 15:28 99 02/01/19 15:19 99 02/01/19 14:27 100 02/01/19 11:23 02/01/19 11:22 99 02/01/19 07:44 99 02/01/19 04:36 98 Laboratory Results Laboratory Results - last 24 hr 01/30/19 01/31/19 01/31/19 23:09 15:53 20:48 Hgb 8.1 L 7.1 L Hct 24.1 L 20.5 L* Sodium Potassium Chloride Carbon Dioxide Anion Gap BUN Creatinine Est Cr Clr Drug Dosing Est GFR ( Amer) Est GFR (Non-Af Amer) BUN/Creatinine Ratio Glucose Calcium Blood Type O Positive Antibody Screen NEGATIVE Crossmatch See Detail 02/01/19 02/01/19 07:56 07:56 Hgb 9.3 L Hct 25.8 L Sodium 140 Potassium 3.4 L Chloride 107 Carbon Dioxide 27 Anion Gap 7.0 BUN 7 D Creatinine 0.67 Est Cr Clr Drug Dosing 93.8 Est GFR ( Amer) 128.3 Est GFR (Non-Af Amer) 110.7 BUN/Creatinine Ratio 10.8 Glucose 98 Calcium 8.3 L Blood Type Antibody Screen Crossmatch Medications Administered Current Inpatient Medications Acetaminophen (Tylenol) 650 mg PO Q4H PRN PRN Reason: pain/fever Stop: 03/02/19 01:30 Last Admin: 02/01/19 04:56 Dose: 650 mg Documented by: Atropine Sulfate (Atropine Sulfate) 0.5 mg IV Q1M PRN PRN Reason: PACU Use-HR<40 &/or Bradycardi Clonazepam (Klonopin) 0.5 mg PO Q12H PRN PRN Reason: Anxiety Stop: 03/02/19 01:30 Duloxetine HCl (Cymbalta) 60 mg PO QAM [facility] Stop: 03/02/19 08:59 Last Admin: 01/31/19 14:12 Dose: Not Given Documented by: Ephedrine Sulfate (Ephedrine Sulfate) 5 mg IV Q5M PRN PRN Reason: PACU Use Only-SBP<90 mmHg Stop: 03/02/19 11:28 Sodium Chloride (Nss) 250 mls @ 15 mls/hr IV .[id number] PRN PRN Reason: For Transfusion Stop: 03/02/19 00:23 Sodium Chloride (Nss 1000ml) 1,000 mls @ 100 mls/hr IV .Q10H MARILU Stop: 03/02/19 01:30 Last Admin: 02/01/19 07:52 Dose: 100 mls/hr Documented by: Sodium Chloride (Nss) 250 mls @ 15 mls/hr IV .[id number] PRN PRN Reason: For Transfusion Stop: 02/01/19 21:39 Miscellaneous (Order Awaiting Action) 1 ea N/A QS [facility] Stop: 03/02/19 07:59 Last Admin: 02/01/19 08:45 Dose: Not Given Documented by: Morphine Sulfate (Morphine Sulfate) 2 mg IV Q4H PRN PRN Reason: Pain Stop: 02/14/19 16:00 Last Admin: 01/31/19 16:18 Dose: 2 mg Documented by: Morphine Sulfate (Morphine Sulfate) 4 mg IV Q4H PRN PRN Reason: Severe Pain Stop: 02/14/19 16:00 Ondansetron HCl (Zofran) 4 mg IV Q6H PRN PRN Reason: Nausea Stop: 03/02/19 21:00 Thyroid ([place] Thyroid) 90 mg PO DAILYBB [facility] Stop: 03/03/19 06:29 Last Admin: 02/01/19 04:56 Dose: 90 mg Documented by: PG Care Time/CCT Total # of Minutes Spent Total Time Spent with Patient: Total time spent is greater than 50% in coordination of care (as documented) at patient's floor/unit and/or counseling patient:
--- NOTE | 2019-02-01 16:06 | Anesthesiology Progress Note ---
Date of Service February 01, 2019 Anesthesia Post Procedure Vital Signs Vital Signs: Temp Pulse Pulse Pulse Resp BP BP 02/01/19 15:45 80 18 128/88 02/01/19 15:35 89 18 134/87 02/01/19 15:28 36.8 C 93 H 86 18 143/86 H 02/01/19 15:19 93 H 18 143/86 H 02/01/19 14:27 36.8 C 90 18 149/74 H 02/01/19 11:23 80 02/01/19 11:22 37.0 C 102 H 17 123/81 02/01/19 07:44 36.6 C 96 H 18 115/72 02/01/19 04:36 36.9 C 102 H 16 116/76 02/01/19 02:45 36.7 C 89 18 100/64 02/01/19 02:15 36.8 C 93 H 20 105/64 02/01/19 02:00 36.8 C 94 H 20 107/60 02/01/19 01:43 36.7 C 94 H 16 104/66 02/01/19 00:56 36.7 C 84 14 110/66 02/01/19 00:05 36.8 C 83 20 123/77 02/01/19 00:00 86 01/31/19 23:35 36.7 C 86 20 105/60 01/31/19 23:05 36.8 C 93 H 19 107/72 01/31/19 22:50 36.9 C 88 20 105/64 01/31/19 22:34 36.8 C 104 H 18 128/80 01/31/19 18:11 95 H Pulse Ox 02/01/19 15:45 100 02/01/19 15:35 100 02/01/19 15:28 99 02/01/19 15:19 99 02/01/19 14:27 100 02/01/19 11:23 02/01/19 11:22 99 02/01/19 07:44 99 02/01/19 04:36 98 02/01/19 02:45 99 02/01/19 02:15 97 02/01/19 02:00 98 02/01/19 01:43 98 02/01/19 00:56 02/01/19 00:05 100 02/01/19 00:00 01/31/19 23:35 100 01/31/19 23:05 100 01/31/19 22:50 100 01/31/19 22:34 99 01/31/19 18:11 Transfer of Care Handoff Completed per policy Notes Mental Status: alert / awake / arousable and participated in evaluation Nausea / Vomiting: adequately controlled Pain: adequately controlled Airway Patency, RR, SpO2: stable & adequate BP & HR: stable & adequate Hydration State: stable & adequate Anesthetic Complications: no major complications apparent and Pt Satisfied with anesthetic care
[2019-02-01] MEDS: DULOXETINE HCL 60 MG CAP PO SCH (16:15)
[2019-02-01 18:50] LABS: Hematocrit (blood only) 26.2 % (37-47); Hemoglobin 9.3 g/dL (12.0-16.0)
[2019-02-01] MEDS ORDERED: NON-FORMULARY PATIENT'S OWN MED SQ ONE (19:00)
[2019-02-02] MEDS: SODIUM CHLORIDE 0.9% 1000ML 1,000 ML IV SCH (03:08)
[2019-02-02] MEDS: ARMOUR THYROID 30 MG TAB PO SCH (05:55)
[2019-02-02 06:58] LABS: Hematocrit (blood only) 26.4 % (37-47); Hemoglobin 9.2 g/dL (12.0-16.0)
[2019-02-02 07:03] VITALS: BP 113/74; TEMP 98.8; O2SAT 96
[2019-02-02] MEDS: DULOXETINE HCL 60 MG CAP PO SCH (08:13)
--- NOTE | 2019-02-02 08:23 | Gastroenterology Progress Note ---
Date of Service February 02, 2019 Assessment & Plan (1) Bright red blood per rectum: Bleeding is likely a result of biopsies in the setting of quiescant UC. 1. OK for DC today. Pt to notify us if any rectal bleeding, though likely will have some old blood in the first few BMs. 2. OP GI f/u with Dr. Garay for UC at least every 6 months. Pt has already arranged. Subjective Ms. Carli Crow gisell 38 yr old female who underwent colonoscopy for restaging of UC (with endoscopic remission) on 01/30. Biopsies were taken but no polypectomies were completed. She began with brisk rectal bleeding that evening. Colonoscopy on 01/31 with a site of bleeding clipped but prep was very poor. Repeat colonoscopy on 02/01 with red blood in the descending colon and a second prior bx site was clipped. Hb baseline 13, on arrival 11.7, decreased to 7.1, received 2 units of RBC->9.2 today. No significant drop since blood transfusions . BMs - one yesterday afternoon bright red blood. Review of Systems Review of Systems: ROS: Gen: Denies weakness, fevers, weight loss Eyes: No eye redness, or pain, no recent vision changes Resp: No SOB, no cough Cardio: No palpitations/irregular beats, no chest pain GI: + rectal bleeding; No abdominal pain, no nausea/vomiting : Denies pain on urination Skin: No jaundice, itching or new rashes Physical Exam Constitutional: WD/WN, vitals as above Eyes: PERRL, conjunctivae normal, anicteric sclerae ENMT: external ear and nose normal, oropharynx normal Neck: trachea midline, no thyromegaly Respiratory: normal respiratory effort, lungs clear to auscultation Cardiovascular: RRR, no murmur, no edema Gastrointestinal (Abdomen): normal bowel sounds, soft, nontender, no hepatosplenomegaly Skin: no rashes, warm and dry Neurologic: PERRL, EOMI, accommodation nl, no face palsy, no dysarthria Psychiatric: A+Ox3, euthymic affect Lymphatic: no cervical or axillary lymphadenopathy Results & Data Vital Signs (Past 12 Hours) Vital Signs Temp Pulse Pulse Resp BP Pulse Ox 02/02/19 07:02 37.1 C 63 16 113/74 96 02/02/19 04:25 36.7 C 90 19 110/63 100 02/02/19 00:57 86 02/01/19 22:00 36.9 C 92 H 18 129/74 99 Laboratory Results Hb 9.2, Hct 26.4, INR 1.0. BUN 7.
--- NOTE | 2019-02-02 08:56 | Anesthesiology Progress Note ---
Date of Service February 02, 2019 Anesthesia Post Procedure Vital Signs Vital Signs: Temp Pulse Pulse Pulse Resp BP Pulse Ox 02/02/19 07:02 37.1 C 63 16 113/74 96 02/02/19 04:25 36.7 C 90 19 110/63 100 02/02/19 00:57 86 02/01/19 22:00 36.9 C 92 H 18 129/74 99 02/01/19 19:16 36.8 C 99 H 20 117/78 100 02/01/19 19:14 36.6 C 88 18 170/83 H 95 02/01/19 16:32 94 H 02/01/19 15:45 80 18 128/88 100 02/01/19 15:35 89 18 134/87 100 02/01/19 15:28 36.8 C 93 H 86 18 143/86 H 99 02/01/19 15:19 93 H 18 143/86 H 99 02/01/19 14:27 36.8 C 90 18 149/74 H 100 02/01/19 11:23 80 02/01/19 11:22 37.0 C 102 H 17 123/81 99 Pain Intensity Head: Pain Intensity: 0 Notes Mental Status: alert / awake / arousable and participated in evaluation Patient Amnestic to Procedure: Yes Nausea / Vomiting: adequately controlled Pain: adequately controlled Airway Patency, RR, SpO2: stable & adequate BP & HR: stable & adequate Hydration State: stable & adequate Anesthetic Complications: no major complications apparent and Pt Satisfied with anesthetic care
[2019-02-02] MEDS ORDERED: LIALDA PO SCH (09:00)
[2019-02-02] MEDS ORDERED: NON-FORMULARY PATIENT'S OWN MED SQ ONE (09:00)
[2019-02-02 09:34] VITALS: PULSE 86
== END 2019-02-02 10:16 | disposition home or self-care (01) | DRG 920 ==
LOC: ED 20:20 → 2N 01-31 00:48 → SUATTDRO 01-31 00:48 → 2N 01-31 01:07
DX: F41.9 Anxiety disorder, unspecified; G43.909 Migraine, unspecified, not intractable, without status migrainosus; K91.840 Postprocedural hemorrhage of a digestive system organ or structure following a digestive system procedure; D62 Acute posthemorrhagic anemia; Z79.899 Other long term (current) drug therapy; E06.3 Autoimmune thyroiditis; Z98.890 Other specified postprocedural states; K51.90 Ulcerative colitis, unspecified, without complications